=== PATIENT | female | born 1950 | race Caucasian/White ===

== ENCOUNTER 2022-02-22 09:37 | Observation (INO) | payer MEDICARE ==
[2022-02-22] MEDS ORDERED: diphenhydrAMINE 50 MG/ML 1 ML VIAL IVP STA (10:00)
[2022-02-22] MEDS ORDERED: KETOROLAC 15 MG/ML 1 ML VIAL IVP STA (10:00)
[2022-02-22] MEDS ORDERED: ONDANSETRON 4 MG/2 ML VIAL IVP STA (10:00)
--- NOTE | 2022-02-22 10:02 | ED ---
General Adult HPI - General Chief complaint: Headache Stated complaint: weakness, head pain Time Seen by Provider: 02/22/22 09:43 Source: EMS Mode of arrival: EMS Limitations: no limitations - History of Present Illness Initial comments: Dictation was produced using [employer] dictation software. please excuse any grammatical, word or spelling errors. Chief Complaint: 71-year-old female presents to the emergency room for headache History of Present Illness: Patient is 71-year-old female she presents emergency department for headache. States that the headache is bifrontal. Patient states that the headache is severe. Patient states she has history of headaches ever has not seen a headache specialist in the past. She states that this headache feels like her usual headaches that she's been suffering from intermittently for the last several years. Patient denies any numbness distally or paresthesias. No vision loss. Denies any changes of symptoms throughout the day. No exacerbation with mastication. No vision loss. The ROS documented in this emergency department record has been reviewed and confirmed by me. Those systems with pertinent positive or negative responses have been documented in the HPI. All other systems are other negative and/or noncontributory. PHYSICAL EXAM: General Impression: Alert and oriented x3, not in acute distress HEENT: Normocephalic atraumatic, extra-ocular movements intact, pupils equal and reactive to light bilaterally, mucous membranes moist. Cardiovascular: Heart regular rate and rhythm Chest: Able to complete full sentences, no retractions, no tachypnea Abdomen: abdomen soft, non-tender, non-distended, no organomegaly Musculoskeletal: Pulses present and equal in all extremities, no peripheral edema Motor: no focal deficits noted Neurological: CN II-XII grossly intact, no focal motor or sensory deficits noted Skin: Intact with no visualized rashes Psych: Normal affect and mood ED course: 71-year-old female presents emergency department for acute on chronic headache. Vital signs upon arrival are within acceptable limits. Neurologic exam is benign. Nursing notes and chart review was performed Laboratory evaluation obtained. CBC, coag panel, metabolic panel is unremarkable. For panel viral PCR is negative. Computed tomography scan of the brain is negative. Patient given headache cocktail and monitored in the emergency department for several hours. Reevaluate multiple occasions. Patient reports that she has very minimal relief from headache cocktail. The bedside believes that this has some U do with stopping her blood pressure medications abruptly. She has not seen a PCP in several months has just run out of her blood pressure medications. Patient believes that patient showing some signs of encephalopathy. She lives alert and oriented 4 showing no neurologic deficits. Family does confirm that patient has extensive headache history has headaches often. Was pt. sent in by a medical professional or institution? @No Did you speak to anyone other than the patient for history? @Daughters Did you review nursing and triage notes? @Yes, agreed Were old charts reviewed? @No Differential Diagnosis? @ MDM Differential Headache: Migraine, tension, cluster, carbon monoxide, central venous thrombosis, pension karma temporal arteritis, acute closure glaucoma, intercranial hemorrhage, mast oiditis, sinusitis, head injury this is not meant to be an all-inclusive list. EKG interpreted by me (3pts min.)? @ [none] X-rays interpreted by me (1pt min.)? @ [none] CT interpreted by me (1pt min.)? @Yes showing no acute processes U/S interpreted by me (1pt. min.)? @ [none] What testing was considered but not performed? (CT, X-rays, U/S, labs)? Why? @ [CT, X-rays, U/S, labs? Why?] What meds were considered but not given? Why? @ [none] Did you discuss the management of the patient with other professionals? @Hospitalist Did you reconcile home meds? @ [none] Was smoking cessation discussed for >3mins.? @ [none] Was critical care preformed (if so, how long)? @ [none] Were there social determinants of health that impacted care today? How? (Homelessness, low income, unemployed, alcoholism, drug addiction, transportation, low edu. Level, literacy, decrease access to med. care, care home, rehab)? @No established care with primary care physician Was there de-escalation of care discussed even if they declined? (Discuss DNR or withdrawal of care, Hospice)? @Not applicable What co-morbidities impacted this encounter? (DM, HTN, Smoking, COPD, CAD, Cancer, CVA, Hep., AIDS, mental health diagnosis, sleep apnea, morbid obesity)? @Not applicable Was patient admitted / discharged? @Admitted Undiagnosed new problem with uncertain prognosis? @Yes Drug Therapy requiring intensive monitoring for toxicity (Heparin, Nitro, Insulin, Cardizem)? @ [none] Were any procedures done? @ [none] Diagnosis/symptom? @Status migrainosus Acute, or Chronic, or Acute on Chronic? @Due to chronic headache Uncomplicated (without systemic symptoms) or Complicated (systemic symptoms)? @Uncomplicated Side effects of treatment? @ [none] Exacerbation, Progression, or Severe Exacerbation] @ [no] Poses a threat to life or bodily function? @ [no] - Related Data Home Medications Medication Instructions Recorded Confirmed Aspirin EC [Ecotrin Low Dose] 81 mg PO DAILY 02/22/22 02/22/22 Atorvastatin [Lipitor] 80 mg PO DAILY 02/22/22 02/22/22 Ergocalciferol [Vitamin D2 (1250 1,250 mcg PO Q30D 02/22/22 02/22/22 Mcg = 47894 Iu)] Glimepiride [Amaryl] 4 mg PO BID 02/22/22 02/22/22 Losartan [Cozaar] 25 mg PO DAILY 02/22/22 02/22/22 Omeprazole 20 mg PO DAILY PRN 02/22/22 02/22/22 atenoloL 100 mg PO DAILY 02/22/22 02/22/22 metFORMIN HCL 1,000 mg PO BID 02/22/22 02/22/22 Allergies Allergy/AdvReac Type Severity Reaction Status Date / Time Wuybhhf-GZC-NrH Reductase Allergy Unknown Verified 02/22/22 11:42 Inhibitor Review of Systems ROS Statement: Those systems with pertinent positive or pertinent negative responses have been documented in the HPI. ROS Other: All systems not noted in ROS Statement are negative. Past Medical History Past Medical History: Cancer, Diabetes Mellitus History of Any Multi-Drug Resistant Organisms: None Reported Past Surgical History: Appendectomy, Cholecystectomy, Hysterectomy Past Psychological History: No Psychological Hx Reported Smoking Status: Current every day smoker Past Alcohol Use History: None Reported Past Drug Use History: None Reported General Exam Limitations: no limitations Course Vital Signs 02/22/22 02/22/22 02/22/22 09:39 11:00 11:30 Temperature 97.6 F Pulse Rate 109 H 92 105 H Respiratory 18 13 18 Rate Blood Pressure 153/132 188/119 192/90 O2 Sat by Pulse 98 95 96 Oximetry 02/22/22 02/22/22 02/22/22 12:00 12:30 13:00 Temperature Pulse Rate 90 82 97 Respiratory 20 18 20 Rate Blood Pressure 178/90 185/95 188/91 O2 Sat by Pulse 95 97 96 Oximetry Medical Decision Making - Lab Data Result diagrams: 02/22/22 11:34 02/22/22 10:40 Lab Results 02/22/22 02/22/22 02/22/22 Range/Units 10:40 10:40 11:34 WBC 9.0 (3.8-10.6) k/uL RBC 4.51 (3.80-5.40) m/uL Hgb 14.1 (11.4-16.0) gm/dL Hct 42.2 (34.0-46.0) % MCV 93.7 (80.0-100.0) fL MCH 31.3 (25.0-35.0) pg MCHC 33.4 (31.0-37.0) g/dL RDW 12.7 (11.5-15.5) % Plt Count 249 (150-450) k/uL MPV 8.8 Neutrophils % 84 % Lymphocytes % 9 % Monocytes % 4 % Eosinophils % 1 % Basophils % 1 % Neutrophils # 7.5 (1.3-7.7) k/uL Lymphocytes # 0.8 L (1.0-4.8) k/uL Monocytes # 0.4 (0-1.0) k/uL Eosinophils # 0.1 (0-0.7) k/uL Basophils # 0.0 (0-0.2) k/uL ESR 11 (0-20) mm/hr PT (9.0-12.0) sec INR (<1.2) APTT (22.0-30.0) sec Sodium 137 (137-145) mmol/L Potassium 4.4 (3.5-5.1) mmol/L Chloride 101 (98-107) mmol/L Carbon Dioxide 24 (22-30) mmol/L Anion Gap 12 mmol/L BUN 21 H (7-17) mg/dL Creatinine 1.09 H (0.52-1.04) mg/dL Est GFR (CKD-EPI)AfAm 59 (>60 ml/min/1.73 sqM) Est GFR (CKD-EPI)NonAf 51 (>60 ml/min/1.73 sqM) Glucose 202 H (74-99) mg/dL Calcium 8.8 (8.4-10.2) mg/dL Total Bilirubin 0.8 (0.2-1.3) mg/dL AST 35 (14-36) U/L ALT 35 H (4-34) U/L Alkaline Phosphatase 71 (38-126) U/L C-Reactive Protein 0.6 (<1.0) mg/dL Total Protein 7.0 (6.3-8.2) g/dL Albumin 4.2 (3.5-5.0) g/dL Influenza Type A (PCR) Not Detected (Not Detectd) Influenza Type B (PCR) Not Detected (Not Detectd) RSV (PCR) Not Detected (Not Detectd) SARS-CoV-2 (PCR) Not Detected (Not Detectd) 02/22/22 Range/Units 11:34 WBC (3.8-10.6) k/uL RBC (3.80-5.40) m/uL Hgb (11.4-16.0) gm/dL Hct (34.0-46.0) % MCV (80.0-100.0) fL MCH (25.0-35.0) pg MCHC (31.0-37.0) g/dL RDW (11.5-15.5) % Plt Count (150-450) k/uL MPV Neutrophils % % Lymphocytes % % Monocytes % % Eosinophils % % Basophils % % Neutrophils # (1.3-7.7) k/uL Lymphocytes # (1.0-4.8) k/uL Monocytes # (0-1.0) k/uL Eosinophils # (0-0.7) k/uL Basophils # (0-0.2) k/uL ESR (0-20) mm/hr PT 10.5 (9.0-12.0) sec INR 1.0 (<1.2) APTT 20.9 L (22.0-30.0) sec Sodium (137-145) mmol/L Potassium (3.5-5.1) mmol/L Chloride (98-107) mmol/L Carbon Dioxide (22-30) mmol/L Anion Gap mmol/L BUN (7-17) mg/dL Creatinine (0.52-1.04) mg/dL Est GFR (CKD-EPI)AfAm (>60 ml/min/1.73 sqM) Est GFR (CKD-EPI)NonAf (>60 ml/min/1.73 sqM) Glucose (74-99) mg/dL Calcium (8.4-10.2) mg/dL Total Bilirubin (0.2-1.3) mg/dL AST (14-36) U/L ALT (4-34) U/L Alkaline Phosphatase (38-126) U/L C-Reactive Protein (<1.0) mg/dL Total Protein (6.3-8.2) g/dL Albumin (3.5-5.0) g/dL Influenza Type A (PCR) (Not Detectd) Influenza Type B (PCR) (Not Detectd) RSV (PCR) (Not Detectd) SARS-CoV-2 (PCR) (Not Detectd) Disposition Clinical Impression: Status migrainosus Disposition: ADMITTED IP TO THIS HOSP Condition: Fair Referrals: Ze Connelly MD [STAFF PHYSICIAN] - 1-2 days Decision Time: 14:39
[2022-02-22 11:07] LABS: Albumin 4.2 g/dL (3.5-5.0); C Reactive Protein 0.6 mg/dL (<1.0); Calcium 8.8 mg/dL (8.4-10.2); Total Bilirubin 0.8 mg/dL (0.2-1.3)
[2022-02-22 11:11] LABS: Potassium 4.4 mmol/L (3.5-5.1)
--- NOTE | 2022-02-22 11:18 | CT ---
EXAMINATION TYPE: CT brain wo con DATE OF EXAM: 02/22/2022 HISTORY: Weakness and headache. CT DLP: 1099.4 mGycm. Automated Exposure Control for Dose Reduction was Utilized. TECHNIQUE: CT scan of the head is performed without contrast. COMPARISON: None. FINDINGS: There is no acute intracranial hemorrhage or midline shift identified. Mild ventricular a nd sulcal prominence. Mesa-white matter differentiation is maintained. Hyperostosis frontalis. The g lobes are intact and the visualized sinuses are clear. IMPRESSION: No acute intracranial hemorrhage or midline shift. There is mild diffuse age-related ce rebral atrophy noted.
[2022-02-22 11:45] LABS: Basophils % (A) 1 %; Eosinophils # (A) 0.1 k/uL (0-0.7); Eosinophils % (A) 1 %; HCT 42.2 % (34.0-46.0); HGB 14.1 gm/dL (11.4-16.0); Lymphocytes # (A) 0.8 k/uL (1.0-4.8); Lymphocytes % (A) 9 %; MCH 31.3 pg (25.0-35.0); MCHC 33.4 g/dL (31.0-37.0); MCV 93.7 fL (80.0-100.0); Mean Platelet Volume 8.8; Monocytes # (A) 0.4 k/uL (0-1.0); Monocytes % (A) 4 %; Neutrophils # (A) 7.5 k/uL (1.3-7.7); Neutrophils % (A) 84 %; Platelet Count 249 k/uL (150-450); RBC 4.51 m/uL (3.80-5.40); RDW 12.7 % (11.5-15.5)
[2022-02-22 12:11] LABS: Prothrombin Time 10.5 sec (9.0-12.0)
[2022-02-22 12:15] LABS: Partial Thromboplastin Time 20.9 sec (22.0-30.0)
[2022-02-22 13:27] LABS: Erythrocyte Sedimentation Rate 11 mm/hr (0-20)
[2022-02-22] MEDS ORDERED: DEXAMETHASONE SOD PHOSPHATE 10 MG/ML 1 ML VIAL IV STA (13:44)
[2022-02-22] MEDS: MAGNESIUM SULFATE-D5W PMX 1 GM in DEXTROSE/WATER 1 100ML.BAG IVPB SCH ×2 (14:09→16:03)
[2022-02-22] MEDS ORDERED: NALOXONE 0.4 MG/ML 1 ML VIAL IV PRN ×2 (14:33→16:00)
[2022-02-22] MEDS ORDERED: traMADol 50 MG TAB PO PRN (16:00)
[2022-02-22] MEDS ORDERED: ACETAMINOPHEN TAB 325 MG TAB PO PRN (16:00)
[2022-02-22] MEDS ORDERED: PANTOPRAZOLE 40 MG TABLET PO PRN (16:02)
[2022-02-22] MEDS: SODIUM CHLORIDE 0.9% 1,000 ML IV SCH (16:03)
--- NOTE | 2022-02-22 16:13 | P.HPIM ---
History of Present Illness H&P Date: 02/22/22 Chief Complaint: headaches 71-year-old female presents to the emergency room for headache. It is bifrontal. Interestingly it has been going on for years but patient did not seek medical help for it. She did not tell her primary care physician about it. He states there is a throbbing and constant. He states that at a minimum she has it 3- 4 days a week. He states it is rarely associated with nausea/vomiting, visual changes. She does have photophobia. Patient denies any focal weakness or numbness. Evaluation in the emergency department revealed elevated blood pressure at 180/90. Laboratory assessment was within normal limits except for elevated glucose at 202. A computed tomography scan of the head was negative for any acute intracranial process but it showed hyperostosis in the bilateral frontal areas.. Review of Systems Complete review of system performed, pertinent positives per HPI, otherwise negative Past Medical History Past Medical History: Cancer, Diabetes Mellitus History of Any Multi-Drug Resistant Organisms: None Reported Past Surgical History: Appendectomy, Cholecystectomy, Hysterectomy Past Psychological History: No Psychological Hx Reported Smoking Status: Current every day smoker Past Alcohol Use History: None Reported Past Drug Use History: None Reported Medications and Allergies Home Medications Medication Instructions Recorded Confirmed Type Aspirin EC [Ecotrin Low Dose] 81 mg PO DAILY 02/22/22 02/22/22 History Atorvastatin [Lipitor] 80 mg PO DAILY 02/22/22 02/22/22 History Ergocalciferol [Vitamin D2 (1250 1,250 mcg PO Q30D 02/22/22 02/22/22 History Mcg = 80915 Iu)] Glimepiride [Amaryl] 4 mg PO BID 02/22/22 02/22/22 History Losartan [Cozaar] 25 mg PO DAILY 02/22/22 02/22/22 History Omeprazole 20 mg PO DAILY PRN 02/22/22 02/22/22 History atenoloL 100 mg PO DAILY 02/22/22 02/22/22 History metFORMIN HCL 1,000 mg PO BID 02/22/22 02/22/22 History Allergies Allergy/AdvReac Type Severity Reaction Status Date / Time Znojorw-GOI-EoR Reductase Allergy Unknown Verified 02/22/22 11:42 Inhibitor Physical Exam Vitals: Vital Signs Temp Pulse Resp BP Pulse Ox 02/22/22 13:00 97 20 188/91 96 02/22/22 12:30 82 18 185/95 97 02/22/22 12:00 90 20 178/90 95 02/22/22 11:30 105 H 18 192/90 96 02/22/22 11:00 92 13 188/119 95 02/22/22 09:39 97.6 F 109 H 18 153/132 98 Intake and Output 02/22/22 02/22/22 02/22/22 06:59 14:59 22:59 Other: Weight 105.233 kg Constitutional: No acute distress, conversant, pleasant Eyes:Anicteric sclerae, moist conjunctiva, no lid-lag, PERRLA, ENMT: Oropharynx clear, no erythema, exudates Neck: Supple, FROM, no masses, or JVD, No carotid bruits, No thyromegaly Lungs: Clear to auscultation, Clear to percussion, Normal respiratory effort, no accessory muscle use Cardiovascular: Heart regular in rate and rhythm, No murmurs, gallops, or rubs, No peripheral edema Abdominal: Soft, Nontender, no guarding, rebound or rigidity, Normoactive bowel sounds, No hepatomegaly, No splenomegaly, No palpable mass Skin: Normal temperature, tone, texture, turgor, no induration, No subcutaneous nodules, No rash, lesions, No ulcers Extremities: No digital cyanosis, No clubbing, Pedal pulses intact and symmetrical, Radial pulses intact and symmetrical, No calf tenderness Psychiatric: Alert and oriented to person, place and time, appropriate affect, intact judgement Neuro: Muscles Strength 5/5 in all 4 extremities, Sensation to light touch grossly present throughout, Cranial nerves II-XII grossly intact, no focal sensory deficits Results CBC & Chem 7: 02/22/22 11:34 02/22/22 10:40 Labs: Abnormal Lab Results - Last 24 Hours (Table) 02/22/22 02/22/22 02/22/22 Range/Units 10:40 11:34 11:34 Lymphocytes # 0.8 L (1.0-4.8) k/uL APTT 20.9 L (22.0-30.0) sec BUN 21 H (7-17) mg/dL Creatinine 1.09 H (0.52-1.04) mg/dL Glucose 202 H (74-99) mg/dL ALT 35 H (4-34) U/L Assessment and Plan Plan: Headaches Could be secondary to migraine versus hyperostosis Patient was seen by neurology, will need hematology/oncology consult, discussed with both services Started on Topamax and Fioricet when necessary Will obtain MRI/MRA brain Diabetes type 2 Hold oral hypoglycemics Sliding scale insulin Hypertensive urgency Resume home blood pressure medications for now. Hyperlipidemia Resume statin Admit to observation
[2022-02-22] MEDS ORDERED: ONDANSETRON 4 MG/2 ML VIAL IVP PRN (16:26)
--- NOTE | 2022-02-22 16:28 | P.CNNES ---
History of Present Illness Consult date: 02/22/22 Requesting physician: Dmitriy Del Rio Reason for Consult: status migranosus History of Present Illness: This is a 71-year-old woman with history of hypertension, diabetes who presented to the emergency department because of headache. Patient stated that she has this headache for years and it's over the bilateral frontal region and it fluctuates in intensity. She denies any worsening of the headache and she stated that she never had this headache addressed in the past but decided to address at that today. She stated the headache is over the bilateral frontal region without any radiation and it's throbbing pain. Again she stated that the headache intensity fluctuates and currently 10 over 10. She does have nausea but denies vomiting. Denies any visual disturbance, focal weakness. Denies any recent trauma to the head or falls. She has tried Excedrin Migraine without any resolution. Some of the workup during his hospital visit consisted of: Initial vitals blood pressure of 153/132, heart rate of 109, respiratory of 18, temperature of 97.6 Fahrenheit oral, pulse ox of 98% room air. White blood cell is 9.0 ESR is 11 and the CRP is 0.6 which within normal limits. Serum glucose 202, creatinine is 1.09. Lee virus PCR, RSV, influenza A/B PCR is nondetected CT head is reported as no acute intracranial hemorrhage or midline shift. There is midline diffuse age-related cerebral atrophy noted. In the body of the report as reported as hyperostosis frontalis. I personally reviewed the CT and there is no acute or subacute ischemia, any intraparenchymal hemorrhage. There is no intracranial mass. The patient's bilateral frontal bones are significantly enlarged. Review of Systems Review of system: The 12 point system was reviewed and apparent positive and negative per HPI. Past Medical History Past Medical History: Cancer, Diabetes Mellitus History of Any Multi-Drug Resistant Organisms: None Reported Past Surgical History: Appendectomy, Cholecystectomy, Hysterectomy Past Psychological History: No Psychological Hx Reported Smoking Status: Current every day smoker Past Alcohol Use History: None Reported Past Drug Use History: None Reported Medications and Allergies Home Medications Medication Instructions Recorded Confirmed Type Aspirin EC [Ecotrin Low Dose] 81 mg PO DAILY 02/22/22 02/22/22 History Atorvastatin [Lipitor] 80 mg PO DAILY 02/22/22 02/22/22 History Ergocalciferol [Vitamin D2 (1250 1,250 mcg PO Q30D 02/22/22 02/22/22 History Mcg = 96151 Iu)] Glimepiride [Amaryl] 4 mg PO BID 02/22/22 02/22/22 History Losartan [Cozaar] 25 mg PO DAILY 02/22/22 02/22/22 History Omeprazole 20 mg PO DAILY PRN 02/22/22 02/22/22 History atenoloL 100 mg PO DAILY 02/22/22 02/22/22 History metFORMIN HCL 1,000 mg PO BID 02/22/22 02/22/22 History Allergies Allergy/AdvReac Type Severity Reaction Status Date / Time Zokjhzl-RWW-KeI Reductase Allergy Unknown Verified 02/22/22 11:42 Inhibitor Physical Examination - Vital Signs Vital Signs: Vital Signs Temp Pulse Resp BP Pulse Ox 02/22/22 13:00 97 20 188/91 96 02/22/22 12:30 82 18 185/95 97 02/22/22 12:00 90 20 178/90 95 02/22/22 11:30 105 H 18 192/90 96 02/22/22 11:00 92 13 188/119 95 02/22/22 09:39 97.6 F 109 H 18 153/132 98 Intake and Output 02/22/22 02/22/22 02/22/22 06:59 14:59 22:59 Other: Weight 105.233 kg GENERAL: The patient is lying in bed and is in moderate acute distress. CHEST: The heart rate is regular rate rhythm. No murmurs to auscultation. LUNG: Clear to auscultation bilaterally no wheezing noted throughout. Not labored breathing. ABDOMEN/GI: Bowel sounds present in all 4 quadrants. No tenderness to palpation throughout. NEUROLOGICAL: Higher mental function: The patient is awake, alert, oriented to self, place and time. Patient is following commands. No aphasia and no neglect. Cranial nerves: The pupils are round, equal and reactive to light and accommodation. Visual springer are full to confrontation throughout. Extraocular movement is intact no nystagmus is noted. Facial sensation is normal to touch throughout. The facial strength is normal throughout. Hearing is mildly decreased bilaterally to hand rub. Tongue is midline and moved [id number] without any difficulty. No dysarthria is noted. Shoulder shrug is normal bilaterally. Motor: The strength is 5 over 5 throughout. Normal tone and bulk. Cerebellum: Normal finger to nose bilaterally. Sensation: Sensation is normal to touch throughout. Reflexes (right/left): Difficult to assess because of patient body habitus. Plantars are mute bilaterally. Results - Laboratory Findings CBC and BMP: 02/22/22 11:34 02/22/22 10:40 Abnormal Lab Findings: Abnormal Labs 02/22/22 02/22/22 02/22/22 10:40 11:34 11:34 Lymphocytes # 0.8 L APTT 20.9 L BUN 21 H Creatinine 1.09 H Glucose 202 H ALT 35 H Assessment and Plan Assessment: Acute on chronic bilateral frontal cephalgia: On CT of the head patient has significant hyperostosis frontalis: Rule out benign bone tumor mass vs malignant. Hypertension Diabetes mellitus Plan: I ordered MRI Brain w/ and w/o STAT to rule out any intracranial mass. Started the patient on Topamax 50mg 1 tab bid and Fioricet PRN. started on Zofran 4mg every 6 hours. Patient received Migraine cocktail in the ED (steroid, benadryl and zofran). Oncology is consulted for abnormal bone grow. Will defer the rest of medical management to primary team. The plan is discussed with patient and Primary team. Thank you for the consultation. Time with Patient: Greater than 30
[2022-02-22 17:59] LABS: Glucose,Whole Blood 212 mg/dL (70-110)
[2022-02-22] MEDS: INSULIN ASPART (NovoLOG) 100 UNIT/ML VIAL SQ SCH ×2 (18:06→21:17)
[2022-02-22] MEDS ORDERED: hydrALAZINE HCL 25 MG TAB PO PRN (18:34)
--- NOTE | 2022-02-22 18:36 | MR ---
EXAMINATION TYPE: MR brain wo/w con DATE OF EXAM: 02/22/2022 5:54 PM CLINICAL INDICATION:Female, 71 years old with history of frontal headache with abnormal bone over fro ntal.; COMPARISON: CT brain on 8 2 TECHNIQUE: Multi planar, multi sequence imaging was performed through the brain including: T1, T2, In version recovery, susceptibility weighted imaging and gradient echo imaging and Diffusion weighted im aging. The patient was then given intravenous contrast and multi planar, T1 fat-saturation images wer e obtained. IV Contrast: 10 cc Gadavist FINDINGS: Redemonstration of hyperostosis frontalis which is a benign etiology. The grider-white junctions, ventricular system, basal cisterns appear unremarkable. Diffusion-weighted imaging shows no evidence of restricted diffusion to suggest acute/subacute infarct. Intracranial art erial flow voids are maintained. Midline structures show no abnormality. Scattered foci of high T2 si gnal intensity are seen within the periventricular white matter. The susceptibility weighted images d o not reveal any evidence for micro-hemorrhage. After administration of gadolinium, no abnormal enhan cement is seen. The bone marrow signal is within normal limits. Paranasal sinuses and mastoid air cells: Mild scattered paranasal sinus disease. Visualized orbits: Orbital contents are intact. IMPRESSION: 1. No evidence of intracranial mass, acute/subacute infarct, or abnormal enhancement. 2. Benign hyperostosis frontalis. 3. Nonspecific white matter changes, likely related to small vessel ischemic disease
[2022-02-22] MEDS: BUTALB/APAP/CAFF 50-325-40MG TAB PO PRN (18:41)
[2022-02-22] MEDS ORDERED: atenoloL 50 MG TAB PO ONE (19:00)
[2022-02-22] MEDS ORDERED: LOSARTAN 25 MG TAB PO ONE (19:00)
[2022-02-22] MEDS: TOPIRAMATE 25 MG TAB PO SCH (20:11)
[2022-02-22 20:55] LABS: Glucose,Whole Blood 177 mg/dL (70-110)
[2022-02-23] MEDS: BUTALB/APAP/CAFF 50-325-40MG TAB PO PRN ×2 (01:11→06:53)
[2022-02-23 06:22] LABS: Basophils % (A) 0 %; Eosinophils % (A) 0 %; HCT 41.1 % (34.0-46.0); HGB 13.5 gm/dL (11.4-16.0); Lymphocytes # (A) 0.9 k/uL (1.0-4.8); Lymphocytes % (A) 16 %; MCH 31.8 pg (25.0-35.0); MCHC 32.8 g/dL (31.0-37.0); MCV 96.8 fL (80.0-100.0); Mean Platelet Volume 8.6; Monocytes # (A) 0.4 k/uL (0-1.0); Monocytes % (A) 6 %; Neutrophils # (A) 4.4 k/uL (1.3-7.7); Neutrophils % (A) 77 %; Platelet Count 209 k/uL (150-450); RBC 4.25 m/uL (3.80-5.40); RDW 12.2 % (11.5-15.5); WBC 5.7 k/uL (3.8-10.6)
[2022-02-23 06:42] LABS: Glucose,Whole Blood 159 mg/dL (70-110)
[2022-02-23 06:46] LABS: ALT 40 U/L (4-34); African American GFR (CKD) 55 (>60 ml/min/1.73 sqM); Albumin/Globulin Ratio 1.4; Anion Gap 10 mmol/L; Blood Urea Nitrogen 22 mg/dL (7-17); Calcium 8.5 mg/dL (8.4-10.2); Carbon Dioxide 21 mmol/L (22-30); Chloride 105 mmol/L (98-107); Globulin 2.7 g/dL; Glucose 177 mg/dL (74-99); Non-African American GFR(CKD) 48 (>60 ml/min/1.73 sqM); Sodium 136 mmol/L (137-145)
[2022-02-23 06:51] LABS: AST 50 U/L (14-36); Albumin 3.8 g/dL (3.5-5.0); Alkaline Phosphatase 61 U/L (38-126); Magnesium 1.6 mg/dL (1.6-2.3); Potassium 5.1 mmol/L (3.5-5.1); Total Protein 6.5 g/dL (6.3-8.2)
[2022-02-23] MEDS: INSULIN ASPART (NovoLOG) 100 UNIT/ML VIAL SQ SCH ×4 (06:53→21:39)
[2022-02-23] MEDS: ASPIRIN 81 MG PO SCH (09:13)
[2022-02-23] MEDS: ATORVASTATIN 80 MG TAB PO SCH (09:13)
[2022-02-23] MEDS: atenoloL 50 MG TAB PO SCH (09:13)
[2022-02-23] MEDS: TOPIRAMATE 25 MG TAB PO SCH (09:14)
[2022-02-23] MEDS: LOSARTAN 25 MG TAB PO SCH (09:14)
[2022-02-23 10:28] LABS: Glucose,Whole Blood 181 mg/dL (70-110)
--- NOTE | 2022-02-23 11:23 | P.PN ---
Subjective Progress Note Date: 02/23/22 Per nurse, while the Oncology team earlier in the morning she has speech difficulty and unknown last normal. The patient is seen at bedside and feels headache is improving over the bilateral frontal region. Denies visual disturbance, focal weakness. She did have speech difficulty but could not tell me if this is new or not. She was placed on Topamax recently. I spoke with the daughter (Mane) via phone and she stated patient has history of word finding difficulty and would repeat phrases or searches for words and feels it is chronic but unsure for how long. Objective - Vital Signs Vital signs: Vital Signs Temp 97.6 F 02/23/22 07:00 Pulse 67 02/23/22 10:36 Resp 20 02/23/22 07:00 BP 117/70 02/23/22 10:36 Pulse Ox 95 02/23/22 07:00 FiO2 Intake & Output 02/22/22 02/23/22 02/23/22 18:59 06:59 18:59 Weight 105.233 kg Other: Voiding Method Toilet # Voids 2 - Exam GENERAL: The patient is lying in bed and is not in acute distress. NEUROLOGICAL: Higher mental function: The patient is awake, alert, oriented to self, time. She had expressive aphasia and was repeat 2022 (even when showing her pen or asking her where she was). Upon asking name of watch she stated time and for pen she state tin. Is following simple and complex command. No neglect. Cranial nerves: The pupils are round, equal and reactive to light. Visual springer are full to confrontation throughout. Extraocular movement is intact no nystagmus is noted. Facial sensation is normal to touch throughout. The facial strength is normal throughout. Hearing is mildly decreased bilaterally to hand rub. Tongue is midline and moved [id number] without any difficulty. No dysarthria is noted. Shoulder shrug is normal bilaterally. Motor: The strength is 5 over 5 throughout. Normal tone and bulk. Cerebellum: Normal finger to nose bilaterally. Sensation: Sensation is normal to touch throughout. Reflexes (right/left): Difficult to assess because of patient body habitus. Plantars are mute bilaterally. NIH Stroke Scale is 1 for expressive aphasia. Unknown last normal. As well it seem she has underlying word finding difficulty but unsure if worse than baseline which I feel seems different than yesterday. No IV tpa since unknown last normal and low NIH stroke scale and the risk outweigh the benefit. Some of the workup during his hospital visit consisted of: White blood cell is 9.0 ESR is 11 and the CRP is 0.6 which within normal limits. Serum glucose 202, creatinine is 1.09. Lee virus PCR, RSV, influenza A/B PCR is nondetected CT head is reported as no acute intracranial hemorrhage or midline shift. There is midline diffuse age-related cerebral atrophy noted. In the body of the report as reported as hyperostosis frontalis. I personally reviewed the CT and there is no acute or subacute ischemia, any intraparenchymal hemorrhage. There is no intracranial mass. The patient's bilateral frontal bones are significa ntly enlarged. MRI Brain is reported as No evidence of intracranial mass, acute/subacute infarct or abnormal enhancement. Benign hyperostosis frontalis. Nonspecific white matter changes, likely related to small vessel ischemic disease. I personally reviewed MRI and agree with report. - Labs CBC & Chem 7: 02/23/22 05:30 02/23/22 05:30 Labs: Abnormal Lab Results - Last 24 Hours (Table) 02/22/22 02/22/22 02/22/22 Range/Units 10:40 11:34 11:34 Lymphocytes # 0.8 L (1.0-4.8) k/uL APTT 20.9 L (22.0-30.0) sec Sodium (137-145) mmol/L Carbon Dioxide (22-30) mmol/L BUN 21 H (7-17) mg/dL Creatinine 1.09 H (0.52-1.04) mg/dL Glucose 202 H (74-99) mg/dL POC Glucose (mg/dL) (70-110) mg/dL AST (14-36) U/L ALT 35 H (4-34) U/L 02/22/22 02/22/22 02/23/22 Range/Units 17:57 20:53 05:30 Lymphocytes # 0.9 L (1.0-4.8) k/uL APTT (22.0-30.0) sec Sodium (137-145) mmol/L Carbon Dioxide (22-30) mmol/L BUN (7-17) mg/dL Creatinine (0.52-1.04) mg/dL Glucose (74-99) mg/dL POC Glucose (mg/dL) 212 H 177 H (70-110) mg/dL AST (14-36) U/L ALT (4-34) U/L 02/23/22 02/23/22 02/23/22 Range/Units 05:30 06:40 10:27 Lymphocytes # (1.0-4.8) k/uL APTT (22.0-30.0) sec Sodium 136 L (137-145) mmol/L Carbon Dioxide 21 L (22-30) mmol/L BUN 22 H (7-17) mg/dL Creatinine 1.14 H (0.52-1.04) mg/dL Glucose 177 H (74-99) mg/dL POC Glucose (mg/dL) 159 H 181 H (70-110) mg/dL AST 50 H (14-36) U/L ALT 40 H (4-34) U/L Assessment and Plan Assessment: 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 MRI Brain w/ and w/o was suggestive of benign hyperostosis frontalis and no mass or stroke. Expressive Aphasia: Likely medication induced Topamax (which can cause word finding difficulty). Also she had underlying word finding difficulty per daughter but possibly worse than baseline. Hypertension Diabetes mellitus Plan: I ordered CTA head and neck to rule out any significant stenosis/occlusion that could be cause of her aphasia beside Topamax. She is on ASA 81mg daily and Lipitor 80mg daily her home medication which is sufficient for secondary stroke prophylaxis. I stopped Topamax and started her on Elavil 25mg qhs for headache control which can be increased to 50mg qhs if continues to have uncontrolled headache. Fioricet PRN. started on Zofran 4mg every 6 hours. Patient received Migraine cocktail in the ED (steroid, benadryl and zofran). Oncology is consulted. Will defer the rest of medical management to primary team. The plan is discussed with patient and her nurse. I called her daughter (Mane) via phone and updated her. Will observe the patient for an additional day and if work-up is normal and patient is back to baseline then she is clear for discharge. Time with Patient: Less than 30
[2022-02-23 12:04] LABS: Glucose,Whole Blood 123 mg/dL (70-110)
--- NOTE | 2022-02-23 12:46 | CT ---
EXAMINATION TYPE: CT angio head neck DATE OF EXAM: 02/23/2022 HISTORY: visual changes COMPARISON: MRI 03-15, CT scan 03-15 CT DLP: 334.5 mGycm. Automated Exposure Control for Dose Reduction was Utilized. TECHNIQUE: CTA scan of the head and neck is performed with IV Contrast, patient injected with 65cc m L of Isovue 370, axial images are obtained, coronal and sagittal reformatted images are reviewed. 3D reconstructed images are created on an independent workstation and reviewed. FINDINGS: There is standard three-vessel anatomy of the great vessels. Atherosclerotic change of the aorta. Slight right vertebral artery dominance. Mild atherosclerotic plaque in the carotid bifurcatio n bilaterally with no significant stenosis. Visualized common carotid arteries intact. Intracranially the vertebrobasilar carotid systems are patent. Anterior cerebral arteries are patent bilaterally. Middle cerebral arteries appear to be patent bilaterally. The posterior cerebral arterie s appear to be patent bilaterally. Hyperostosis of the calvarium is noted. Atrophic and degenerative change of the spine. IMPRESSION: 1. No significant carotid bifurcation stenosis. 2. No sizable intracranial aneurysm or vascular malformation. NASCET criteria was used in interpretation of this exam?
--- NOTE | 2022-02-23 13:40 | P.PN ---
Subjective Progress Note Date: 02/23/22 Patient seen and examined at bedside. Patient states that her headaches have improved since admission. Initially they were a 10 out of 10 pain and now the headache is diabetic 10 pain. Pain is described as a pressure in the frontal region. Patient denies chest pain or shortness of breath. Objective - Vital Signs Vital signs: Vital Signs Temp 97.6 F 02/23/22 07:00 Pulse 67 02/23/22 10:36 Resp 20 02/23/22 07:00 BP 117/70 02/23/22 10:36 Pulse Ox 95 02/23/22 07:00 FiO2 Intake & Output 02/22/22 02/23/22 02/23/22 18:59 06:59 18:59 Weight 105.233 kg Other: Voiding Method Toilet # Voids 2 - Exam General: [non toxic], [no distress], [appears at stated age] Derm: [warm], [dry] Head: [atraumatic], [normocephalic], [symmetric] Eyes: [EOMI], [no lid lag], [anicteric sclera] Mouth: [no lip lesion], [mucus membranes moist] Cardiovascular: [S1S2 reg], [no murmur], [positive posterior tibial pulse bilateral], Lungs: [CTA bilateral], [no rhonchi, no rales] , [no accessory muscle use] Abdominal: [soft], [ nontender to palpation], [no guarding], [no appreciable organomegaly] Ext: [no gross muscle atrophy], [no edema], [no contractures] Neuro: [ CN II-XI grossly intact], [no focal neuro deficits] Psych: [Alert], [oriented], [appropriate affect] - Labs CBC & Chem 7: 02/23/22 05:30 02/23/22 05:30 Labs: Abnormal Lab Results - Last 24 Hours (Table) 02/22/22 02/22/22 02/23/22 Range/Units 17:57 20:53 05:30 Lymphocytes # 0.9 L (1.0-4.8) k/uL Sodium (137-145) mmol/L Carbon Dioxide (22-30) mmol/L BUN (7-17) mg/dL Creatinine (0.52-1.04) mg/dL Glucose (74-99) mg/dL POC Glucose (mg/dL) 212 H 177 H (70-110) mg/dL AST (14-36) U/L ALT (4-34) U/L 02/23/22 02/23/22 02/23/22 Range/Units 05:30 06:40 10:27 Lymphocytes # (1.0-4.8) k/uL Sodium 136 L (137-145) mmol/L Carbon Dioxide 21 L (22-30) mmol/L BUN 22 H (7-17) mg/dL Creatinine 1.14 H (0.52-1.04) mg/dL Glucose 177 H (74-99) mg/dL POC Glucose (mg/dL) 159 H 181 H (70-110) mg/dL AST 50 H (14-36) U/L ALT 40 H (4-34) U/L 02/23/22 Range/Units 12:02 Lymphocytes # (1.0-4.8) k/uL Sodium (137-145) mmol/L Carbon Dioxide (22-30) mmol/L BUN (7-17) mg/dL Creatinine (0.52-1.04) mg/dL Glucose (74-99) mg/dL POC Glucose (mg/dL) 123 H (70-110) mg/dL AST (14-36) U/L ALT (4-34) U/L Assessment and Plan Assessment: Headaches Secondary to migraine versus hyperostosis Patient seen by neurology medications have been adjusted and patient is currently on Elavil and Fiorocet for her headaches MRI negative for intracranial mass acute/subacute infarct or abnormal e nhancement CTA reveals no significant carotid bifurcation stenosis no sizable intracranial aneurysm or vascular malformation Hyperostosis Frontalis Identified by MRI hematology/oncology consulted Diabetes type 2 Hold oral hypoglycemics Sliding scale insulin Hypertensive urgency resolved continue home blood pressure medications Hyperlipidemia Resume statin GI/DVT prophylaxis Disposition: Discharge planning once cleared by neurology headaches are better controlled Likely in a.m. Time with Patient: Greater than 30
--- NOTE | 2022-02-23 15:14 | P.CONS ---
History of Present Illness - Reason for Consult Consult date: 02/23/22 abnormal bone growth Requesting physician: Dmitriy Del Rio - Chief Complaint Migraine - History of Present Illness This is a 71-year-old woman with history of HTN and diabetes who presented to the ER because of headache. Patient reports hx of migraines for the last 7 yea rs. Pt states currently headache is in bilateral frontal region, it can fluctuate in intensity. She denies any worsening of the headache, radiation of pain, and describes headache as throbbing. associated nausea, denies vomiting. Denies visual disturbance, focal weakness. Denies any recent trauma to the head, she has fallen. No focal pain in back, legs or arms. Denies hx of cancer. Of note, during exam patient was experiencing expressive aphasia, at which time nurse was brought into room, and she reports about 1 hr prior to us seeing patient, pt was not having difficult with speech at that time. Nurse reports no narcotics have been given, but pt was started on topamax for her headache. She recieved 3 units of insulin this morning, did eat a full breakfast. BG was 181. Nurse was asked to page Neurologist stat to further assess patient. BP has also been elevated throughout admission, with systolic BP measuring in the 150- 180s, most recent BP is 117/70. CT head showed no intrancranial hemorahhage or midline shift, but showed hypertosis frontalis. MRI brain, showed no mass, white matter changes present, and reported mopst likely benign hypertosis frontalis. CT angio neck/head today, showed no significant carotid stenosis or no sizable intracranial aneurysm or vascular malformation. Review of Systems 10 point ROS is negative except as stated in HPI Past Medical History Past Medical History: Cancer, Diabetes Mellitus, Hyperlipidemia, Hypertension Additional Past Medical History / Comment(s): Uterine Cancer, Former Smoker (Quit 1983) History of Any Multi-Drug Resistant Organisms: None Reported Past Surgical History: Appendectomy, Cholecystectomy, Hysterectomy Past Anesthesia/Blood Transfusion Reactions: Postoperative Nausea & Vomiting (PONV) Past Psychological History: No Psychological Hx Reported Smoking Status: Former smoker Past Alcohol Use History: None Reported Past Drug Use History: None Reported Medications and Allergies Home Medications Medication Instructions Recorded Confirmed Type Aspirin EC [Ecotrin Low Dose] 81 mg PO DAILY 02/22/22 02/22/22 History Atorvastatin [Lipitor] 80 mg PO DAILY 02/22/22 02/22/22 History Ergocalciferol [Vitamin D2 (1250 1,250 mcg PO Q30D 02/22/22 02/22/22 History Mcg = 92821 Iu)] Glimepiride [Amaryl] 4 mg PO BID 02/22/22 02/22/22 History Losartan [Cozaar] 25 mg PO DAILY 02/22/22 02/22/22 History Omeprazole 20 mg PO DAILY PRN 02/22/22 02/22/22 History atenoloL 100 mg PO DAILY 02/22/22 02/22/22 History metFORMIN HCL 1,000 mg PO BID 02/22/22 02/22/22 History Allergies Allergy/AdvReac Type Severity Reaction Status Date / Time [id number] Reductase Allergy Unknown Verified 02/22/22 11:42 Inhibitor Physical Exam Vitals: Vital Signs Temp Pulse Pulse Pulse Resp BP BP 02/23/22 10:36 67 117/70 02/23/22 07:00 97.6 F 65 20 141/84 02/23/22 02:40 98.4 F 75 18 176/79 02/22/22 19:35 97.7 F 83 18 154/79 02/22/22 17:55 97.8 F 97 16 184/102 02/22/22 16:00 90 20 179/77 02/22/22 15:30 84 12 178/88 02/22/22 15:00 89 17 176/94 02/22/22 14:30 91 22 176/85 02/22/22 14:00 97 15 167/96 02/22/22 13:30 96 17 186/89 02/22/22 13:00 97 20 188/91 02/22/22 12:30 82 18 185/95 Pulse Ox 02/23/22 10:36 02/23/22 07:00 95 02/23/22 02:40 94 L 02/22/22 19:35 93 L 02/22/22 17:55 96 02/22/22 16:00 95 02/22/22 15:30 89 L 02/22/22 15:00 94 L 02/22/22 14:30 96 02/22/22 14:00 95 02/22/22 13:30 96 02/22/22 13:00 96 02/22/22 12:30 97 Intake and Output 02/22/22 02/23/22 02/23/22 22:59 06:59 14:59 Other: Voiding Method Toilet # Voids 1 2 Weight 105.233 kg - Constitutional General appearance: cooperative, no acute distress, obese - EENT EOM was not intact, pt had difficulty tracking and accommodating Eyes: anicteric sclerae, no EOMI ENT: hearing grossly normal, normal oropharynx - Respiratory Respiratory: bilateral: CTA - Cardiovascular Rhythm: regular Heart sounds: normal: S1, S2 Abnormal Heart Sounds: no systolic murmur, no diastolic murmur, no rub, no S3 Gallop, no S4 Gallop, no click, no other - Integumentary Integumentary: normal - Neurologic Strength 5/5 in upper and lower extremities, no pronator drift, slurred speech, or facial droop present. Expressive aphasia noted Neurologic: focal deficits - Musculoskeletal Musculoskeletal: strength equal bilaterally - Psychiatric Psychiatric: A&O x's 3, appropriate affect Results CBC & Chem 7: 02/23/22 05:30 02/23/22 05:30 Labs: Abnormal Lab Results - Last 24 Hours (Table) 02/22/22 02/22/22 02/23/22 Range/Units 17:57 20:53 05:30 Lymphocytes # 0.9 L (1.0-4.8) k/uL Sodium (137-145) mmol/L Carbon Dioxide (22-30) mmol/L BUN (7-17) mg/dL Creatinine (0.52-1.04) mg/dL Glucose (74-99) mg/dL POC Glucose (mg/dL) 212 H 177 H (70-110) mg/dL AST (14-36) U/L ALT (4-34) U/L 02/23/22 02/23/22 02/23/22 Range/Units 05:30 06:40 10:27 Lymphocytes # (1.0-4.8) k/uL Sodium 136 L (137-145) mmol/L Carbon Dioxide 21 L (22-30) mmol/L BUN 22 H (7-17) mg/dL Creatinine 1.14 H (0.52-1.04) mg/dL Glucose 177 H (74-99) mg/dL POC Glucose (mg/dL) 159 H 181 H (70-110) mg/dL AST 50 H (14-36) U/L ALT 40 H (4-34) U/L 02/23/22 Range/Units 12:02 Lymphocytes # (1.0-4.8) k/uL Sodium (137-145) mmol/L Carbon Dioxide (22-30) mmol/L BUN (7-17) mg/dL Creatinine (0.52-1.04) mg/dL Glucose (74-99) mg/dL POC Glucose (mg/dL) 123 H (70-110) mg/dL AST (14-36) U/L ALT (4-34) U/L CT Scan - head: report reviewed MRI - head: report reviewed, image reviewed Assessment and Plan (1) Hyperostosis frontalis interna Current Visit: Yes Status: Acute Priority: High Code(s): M85.2 - HYPEROSTOSIS OF SKULL SNOMED Code(s): 88341178 (2) Status migrainosus Current Visit: Yes Status: Acute Priority: High Code(s): G43.901 - MIGRAINE, UNSP, NOT INTRACTABLE, WITH STATUS MIGRAINOSUS SNOMED Code(s): 827138326 Plan: Abnormal bone growth of the skull -MRI of the brain image and report reviewed. MRI reads that the thickening/abnormal bone growth of the skull isfelt to benign, low suspicion for malignancy. Review of the image is not suggestive of lytic or blastic lesions. -Labs showing normal protein, calcium and renal function. -Subjectively patient denies any new pain, the headache is not necessarily new for her but, maybe a little bit worse. -Clinically there is a lower suspicion that this is malignant. However, will order paraproteinemia workup, immunoglobulin levels as well as a skeletal survey to rule out any potential malignant cause. -Will follow-up on lab results. Further recommendations to follow if clinically necessary. attests: I seen and examined patient, performed H&P, developed impression and plan of care. Discussed with dictator. Agree with documentation. Dictated as a scribe.
[2022-02-23] MEDS: SODIUM CHLORIDE 0.9% 1,000 ML IV SCH (17:28)
[2022-02-23 17:44] LABS: Glucose,Whole Blood 162 mg/dL (70-110)
[2022-02-23] MEDS ORDERED: SODIUM CHLORIDE 0.9% 1,000 ML IV SCH (19:30)
[2022-02-23 19:36] LABS: Glucose,Whole Blood 152 mg/dL (70-110)
--- NOTE | 2022-02-23 20:57 | XR ---
EXAMINATION TYPE: XR bone survey complete DATE OF EXAM: 02/23/2022 COMPARISON: None HISTORY: Possible malignancy TECHNIQUE: 16 views FINDINGS: There is hyperostosis frontalis. Calvarium is intact. There is osteopenia. There is minimal wedging of thoracic vertebra up to 10% and consistent with osteoporosis. Sacroiliac joints are intac t. There is some biconcave deformity of the lumbar vertebra without too 30% loss of height and consis tent with osteomalacia. The hip joints are intact. There is extensive soft tissue calcification in harshad th thighs and consistent with injection sites. There is contrast in the urinary bladder. The long bon es are intact. No evidence of rib fracture. Shoulder joints are intact. Bony pelvis is intact. Proxim al femurs and hip joints are intact. IMPRESSION: No focal bone destruction. No acute bony abnormality. Osteoporosis and osteomalacia type compression fractures in the thoracic and lumbar spine.
[2022-02-23] MEDS ORDERED: AMITRIPTYLINE HCL 25 MG TAB PO SCH (21:00)
[2022-02-24 00:05] LABS: Immunoglobulin M 95.9 mg/dL (40.0-280.0)
[2022-02-24 02:49] VITALS: RESP 18
[2022-02-24 05:35] LABS: Glucose,Whole Blood 157 mg/dL (70-110)
[2022-02-24] MEDS: INSULIN ASPART (NovoLOG) 100 UNIT/ML VIAL SQ SCH ×2 (06:04→12:36)
[2022-02-24 07:58] VITALS: BP 146/81; PULSE 69; TEMP 97.3
[2022-02-24] MEDS: ATORVASTATIN 80 MG TAB PO SCH (08:21)
[2022-02-24] MEDS: atenoloL 50 MG TAB PO SCH (08:21)
[2022-02-24] MEDS: LOSARTAN 25 MG TAB PO SCH (08:21)
[2022-02-24] MEDS: ASPIRIN 81 MG PO SCH (08:21)
[2022-02-24 08:37] LABS: Basophils # (A) 0.04 X 10*3/uL (0.00-0.10); Basophils % (A) 0.6 %; Eosinophils # (A) 0.08 X 10*3/uL (0.04-0.35); Eosinophils % (A) 1.1 %; HCT 39.8 % (37.2-46.3); HGB 12.5 g/dL (12.0-15.0); Immature Grans, Automated 0.3 %; Lymphocytes # (A) 2.08 X 10*3/uL (0.90-5.00); Lymphocytes % (A) 28.7 %; MCH 30.8 pg (27.0-32.0); MCHC 31.4 g/dL (32.0-37.0); Mean Platelet Volume 10.7 fL (9.5-12.2); Monocytes # (A) 0.73 X 10*3/uL (0.20-1.00); Monocytes % (A) 10.1 %; NRBC Per 100 WBC 0 /100 WBCS (0.0-0.0); Neutrophils % (A) 59.2 %; Platelet Count 228 X 10*3/uL (140-440); RBC 4.06 X 10*6/uL (4.10-5.20); RDW 12.7 % (11.5-14.5); WBC 7.25 X 10*3/uL (4.50-10.00)
[2022-02-24 09:02] LABS: African American GFR (CKD) 34.1 (60.0-200.0); Albumin 3.6 g/dL (3.8-4.9); Albumin/Globulin Ratio 1.89 (1.60-3.17); BUN/Creat Ratio 15.53 Ratio (12.00-20.00); Blood Urea Nitrogen 26.4 mg/dL (9.0-27.0); Calcium 8.6 mg/dL (8.7-10.3); Globulin 1.9 g/dL (1.6-3.3); Magnesium 1.7 mg/dL (1.5-2.4); Non-African American GFR(CKD) 29.4 (60.0-200.0); Potassium 4.4 mmol/L (3.5-5.5); Total Bilirubin 0.5 mg/dL (0.30-1.20); Total Protein 5.5 g/dL (6.2-8.2)
[2022-02-24 11:16] LABS: Free Kappa Lt Chain Qnt, Serum 2.76 mg/dL (0.33-1.94); Free Lambda Lt Chain Qnt, Seru 1.79 mg/dL (0.57-2.63)
[2022-02-24 11:47] LABS: Appearance,Urine Clear (Clear); Bacteria,Urine Rare /hpf; Bilirubin,Urine Negative (Negative); Blood,Urine Negative (Negative); Color,Urine Yellow; Glucose,Urine (UA) Negative (Negative); Ketones,Urine Negative (Negative); Leukocyte Esterase,Urine Large (Negative); Nitrite,Urine Negative (Negative); PH, Urine 5.5 (5.0-8.0); Protein,Urine Trace (Negative); RBC,Urine 1 /hpf (0-5); Specific Gravity,Urine 1.032 (1.001-1.035); Squamous Epithelial Cell,Urine 2 /hpf (0-4); WBC,Urine 21 /hpf (0-5)
[2022-02-24 12:18] LABS: Glucose,Whole Blood 124 mg/dL (70-110)
--- NOTE | 2022-02-24 12:59 | P.DS ---
Providers Date of admission: 02/22/22 14:33 Attending physician: Cb Winslow MD Consults: 02/22/22 14:32 Consult Physician Routine Consulting Provider: Diogo Sequeira Consult Reason/Comments: status migranosus Do you want consulting provider notified?: Yes 02/22/22 15:53 Consult Physician Routine Consulting Provider: David Ghotra Consult Reason/Comments: abnormal bone growth Do you want consulting provider notified?: Yes Primary care physician: Stated None Hospital Course: Admitting diagnoses: Intractable Headache Discharge diagnoses: Migraines Hyperostosis frontalis Type 2 diabetes mellitus Hypertension Hyperlipidemia Clinical course: 71-year-old female presents to the emergency room for headache. It is bifrontal. Interestingly it has been going on for years but patient did not seek medical help for it. She did not tell her primary care physician about it. He states there is a throbbing and constant. He states that at a minimum she has it 3- 4 days a week. He states it is rarely associated with nausea/vomiting, visual changes. She does have photophobia. Patient denies any focal weakness or numbness. Evaluation in the emergency department revealed elevated blood pressure at 180/90. Laboratory assessment was within normal limits except for elevated glucose at 202. A computed tomography scan of the head was negative for any acute intracranial process but it showed hyperostosis in the bilateral frontal areas. Physical exam: General: [non toxic], [no distress], [appears at stated age] Derm: [warm], [dry] Head: [atraumatic], [normocephalic], [symmetric] Eyes: [EOMI], [no lid lag], [anicteric sclera] Mouth: [no lip lesion], [mucus membranes moist] Cardiovascular: [S1S2 reg], [no murmur], [positive posterior tibial pulse bilateral], Lungs: [CTA bilateral], [no rhonchi, no rales] , [no accessory muscle use] Abdominal: [soft], [ nontender to palpation], [no guarding], [no appreciable organomegaly] Ext: [no gross muscle atrophy], [no edema], [no contractures] Neuro: [ CN II-XI grossly intact], [no focal neuro deficits] Psych: [Alert], [oriented], [appropriate affect] 1. Headaches Secondary to migraine versus hyperostosis Patient seen by neurology medications have been adjusted and patient is currently on Elavil and Fiorocet for her headaches MRI negative for intracranial mass acute/subacute infarct or abnormal enha ncement CTA reveals no significant carotid bifurcation stenosis no sizable intracranial aneurysm or vascular malformation 2. Hyperostosis Frontalis Identified by MRI hematology/oncology consulted 3. Diabetes type 2 Hold oral hypoglycemics Sliding scale insulin 4. Hypertensive urgency resolved continue home blood pressure medications 5. Hyperlipidemia Resume statin Condition: Fair Disposition: Home with home care Activity: As tolerated Diet: Diabetic Follow-up with PCP in 2-7 days Follow-up with neurology in 1-2 weeks Patient Condition at Discharge: Fair Plan - Discharge Summary Discharge Rx Participant: Yes New Discharge Prescriptions: New hydrALAZINE HCL [Apresoline] 25 mg PO QID PRN #360 tab PRN Reason: Hypertension Amitriptyline HCl [Elavil] 25 mg PO HS #30 tab Calcium Carb-Vit D 500Mg-5Mcg [Oscal 500+D 5 Mcg (200 Iu)] 1 each PO BID- W/MEALS #60 tab Butalb/APAP/Caff 50-325-40Mg [Fioricet 50-325-40] 1 tab PO Q4H PRN #30 tablet PRN Reason: Headache Continue Aspirin EC [Ecotrin Low Dose] 81 mg PO DAILY Glimepiride [Amaryl] 4 mg PO BID atenoloL 100 mg PO DAILY Omeprazole 20 mg PO DAILY PRN PRN Reason: Heartburn metFORMIN HCL 1,000 mg PO BID Ergocalciferol [Vitamin D2 (1250 Mcg = 10999 Iu)] 1,250 mcg PO Q30D Losartan [Cozaar] 25 mg PO DAILY Atorvastatin [Lipitor] 80 mg PO DAILY Discharge Medication List Aspirin EC [Ecotrin Low Dose] 81 mg PO DAILY 02/22/22 [History] Atorvastatin [Lipitor] 80 mg PO DAILY 02/22/22 [History] Ergocalciferol [Vitamin D2 (1250 Mcg = 80735 Iu)] 1,250 mcg PO Q30D 02/22/22 [History] Glimepiride [Amaryl] 4 mg PO BID 02/22/22 [History] Losartan [Cozaar] 25 mg PO DAILY 02/22/22 [History] Omeprazole 20 mg PO DAILY PRN 02/22/22 [History] atenoloL 100 mg PO DAILY 02/22/22 [History] metFORMIN HCL 1,000 mg PO BID 02/22/22 [History] Amitriptyline HCl [Elavil] 25 mg PO HS #30 tab 02/24/22 [Rx] Butalb/APAP/Caff 50-325-40Mg [Fioricet 50-325-40] 1 tab PO Q4H PRN #30 tablet 02/24/22 [Rx] Calcium Carb-Vit D 500Mg-5Mcg [Oscal 500+D 5 Mcg (200 Iu)] 1 each PO BID-W/MEALS #60 tab 02/24/22 [Rx] hydrALAZINE HCL [Apresoline] 25 mg PO QID PRN #360 tab 02/24/22 [Rx] Follow up Appointment(s)/Referral(s): Ze Connelly MD [STAFF PHYSICIAN] - 1-2 days Diogo Sequeira MD [STAFF PHYSICIAN] - 2 Weeks Discharge Disposition: HOME WITH HOME HEALTH SERVICES
--- NOTE | 2022-02-24 13:43 | P.PN ---
Subjective Progress Note Date: 02/24/22 The patient is seen at bedside and feels her headache is drastically better and today has no headache. No further speech difficulty and per nurse, she is doing better today. Patient denies any further neurological new issues. Objective - Vital Signs Vital signs: Vital Signs Temp 97.3 F L 02/24/22 07:00 Pulse 69 02/24/22 07:00 Resp 18 02/24/22 07:00 BP 146/81 02/24/22 07:00 Pulse Ox 96 02/24/22 07:00 FiO2 Intake & Output 02/23/22 02/24/22 02/24/22 18:59 06:59 18:59 Other: Voiding Method Toilet Toilet # Voids 2 2 - Exam GENERAL: The patient is lying in bed and is not in acute distress. NEUROLOGICAL: Higher mental function: The patient is awake, alert, oriented to self, time. Is following simple and complex command. No aphasia or neglect. Cranial nerves: The pupils are round, equal and reactive to light. Visual springer are full to confrontation throughout. Extraocular movement is intact no nystagmus is noted. Facial sensation is normal to touch throughout. The facial strength is normal throughout. Hearing is mildly decreased bilaterally to hand rub. Tongue is midline and moved [id number] without any difficulty. No d ysarthria is noted. Shoulder shrug is normal bilaterally. Motor: The strength is 5 over 5 throughout. Normal tone and bulk. Cerebellum: Normal finger to nose bilaterally. Sensation: Sensation is normal to touch throughout. Reflexes (right/left): Difficult to assess because of patient body habitus. Plantars are mute bilaterally. NIH Stroke Scale is 1 for expressive aphasia. Unknown last normal. As well it seem she has underlying word finding difficulty but unsure if worse than baseline which I feel seems different than yesterday. No IV tpa since unknown last normal and low NIH stroke scale and the risk outweigh the benefit. Some of the workup during his hospital visit consisted of: White blood cell is 9.0 ESR is 11 and the CRP is 0.6 which within normal limits. Serum glucose 202, creatinine is 1.09. Lee virus PCR, RSV, influenza A/B PCR is nondetected CT head is reported as no acute intracranial hemorrhage or midline shift. There is midline diffuse age-related cerebral atrophy noted. In the body of the report as reported as hyperostosis frontalis. I personally reviewed the CT and there is no acute or subacute ischemia, any intraparenchymal hemorrhage. There is no intracranial mass. The patient's bilateral frontal bones are significantly enlarged. MRI Brain is reported as No evidence of intracranial mass, acute/subacute infarct or abnormal enhancement. Benign hyperostosis frontalis. Nonspecific white matter changes, likely related to small vessel ischemic disease. I personally reviewed MRI and agree with report. CT angiography of the head and neck was reported as no significant carotid bifurcation stenosis. No sizable intracranial aneurysm or vascular malformation. NASCET criteria was used in education of this exam. - Labs CBC & Chem 7: 02/24/22 05:57 02/24/22 05:57 Labs: Abnormal Lab Results - Last 24 Hours (Table) 02/23/22 02/23/22 02/23/22 Range/Units 14:57 17:42 19:35 RBC (4.10-5.20) X 10*6/uL MCV (80.0-97.0) fL MCHC (32.0-37.0) g/dL Creatinine (0.6-1.5) mg/dL Est GFR (CKD-EPI)AfAm (60.0-200.0) Est GFR (CKD-EPI)NonAf (60.0-200.0) Glucose (70-110) mg/dL POC Glucose (mg/dL) 162 H 152 H (70-110) mg/dL Calcium (8.7-10.3) mg/dL AST (13-35) U/L ALT (8-44) U/L Total Protein (6.2-8.2) g/dL Total Protein (PEP) 6.0 L (6.2-8.2) g/dL Albumin (3.8-4.9) g/dL Urine Protein (Negative) Ur Leukocyte Esterase (Negative) Urine WBC (0-5) /hpf Urine Bacteria (None) /hpf Free [place] LC, Quant 2.76 H (0.33-1.94) mg/dL 02/24/22 02/24/22 02/24/22 Range/Units 05:34 05:57 05:57 RBC 4.06 L (4.10-5.20) X 10*6/uL MCV 98.0 H (80.0-97.0) fL MCHC 31.4 L (32.0-37.0) g/dL Creatinine 1.7 H (0.6-1.5) mg/dL Est GFR (CKD-EPI)AfAm 34.1 L (60.0-200.0) Est GFR (CKD-EPI)NonAf 29.4 L (60.0-200.0) Glucose 129 H (70-110) mg/dL POC Glucose (mg/dL) 157 H (70-110) mg/dL Calcium 8.6 L (8.7-10.3) mg/dL AST 40 H (13-35) U/L ALT 51 H (8-44) U/L Total Protein 5.5 L (6.2-8.2) g/dL Total Protein (PEP) (6.2-8.2) g/dL Albumin 3.6 L (3.8-4.9) g/dL Urine Protein (Negative) Ur Leukocyte Esterase (Negative) Urine WBC (0-5) /hpf Urine Bacteria (None) /hpf Free [place] LC, Quant (0.33-1.94) mg/dL 02/24/22 02/24/22 Range/Units 11:00 12:16 RBC (4.10-5.20) X 10*6/uL MCV (80.0-97.0) fL MCHC (32.0-37.0) g/dL Creatinine (0.6-1.5) mg/dL Est GFR (CKD-EPI)AfAm (60.0-200.0) Est GFR (CKD-EPI)NonAf (60.0-200.0) Glucose (70-110) mg/dL POC Glucose (mg/dL) 124 H (70-110) mg/dL Calcium (8.7-10.3) mg/dL AST (13-35) U/L ALT (8-44) U/L Total Protein (6.2-8.2) g/dL Total Protein (PEP) (6.2-8.2) g/dL Albumin (3.8-4.9) g/dL Urine Protein Trace H (Negative) Ur Leukocyte Esterase Large H (Negative) Urine WBC 21 H (0-5) /hpf Urine Bacteria Rare H (None) /hpf Free [place] LC, Quant (0.33-1.94) mg/dL Assessment and Plan Assessment: 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 MRI Brain w/ and w/o was suggestive of benign hyperostosis frontalis and no mass or stroke---headache is controlled. Transient Expressive Aphasia: Likely medication induced Topamax (which can cause word finding difficulty). Also she had underlying word finding difficulty per daughter but possibly worse than baseline---resolved after discontinuation of Topamax. Hypertension Diabetes mellitus Plan: I stopped Topamax and started her on Elavil 25mg qhs for headache control which can be increased to 50mg qhs if continues to have uncontrolled headache. Fioricet PRN. started on Zofran 4mg every 6 hours. She is on ASA 81mg daily and Lipitor 80mg daily her home medication which is sufficient for secondary stroke prophylaxis. Oncology is consulted. Will defer the rest of medical management to primary team. Recommend patient to follow-up with neurologist as outpatient within 1-2 weeks. The plan is discussed with patient and her nurse. There is no further neurological work-up. Time with Patient: Less than 30
[2022-02-24 15:40] LABS: Albumin 3.47 g/dL (3.80-4.90); Gamma Globulin 0.64 g/dL (0.70-1.50)
[2022-02-24] MEDS ORDERED: CALCIUM CARB-VIT D 500 MG-5 MCG TAB PO SCH (17:30)
[2022-03-01] MEDS ORDERED: ERGOCALCIFEROL 1,250 MCG (50,000 IU) CAPSULE PO SCH (09:00)
== END 2022-02-24 14:05 | disposition home health service (06) ==
LOC: EC 09:37 → 6NMEDSUR 14:33
PROVIDERS: ADMIT Family Medicine; ATTEND Family Medicine
DX: G43.901 Migraine, unspecified, not intractable, with status migrainosus (principal); I16.0 Hypertensive urgency; M85.2 Hyperostosis of skull; R47.01 Aphasia; Z85.42 Personal history of malignant neoplasm of other parts of uterus; I10 Essential (primary) hypertension; E11.65 Type 2 diabetes mellitus with hyperglycemia; E78.5 Hyperlipidemia, unspecified; Z90.49 Acquired absence of other specified parts of digestive tract; Z90.710 Acquired absence of both cervix and uterus; Z79.82 Long term (current) use of aspirin; Z79.84 Long term (current) use of oral hypoglycemic drugs; Z79.899 Other long term (current) drug therapy; Z88.8 Allergy status to other drugs, medicaments and biological substances; Z20.822 Contact with and (suspected) exposure to COVID-19
CPT/HCPCS: 96365; 96366; 96375; 99285; 36415; 93005; 80053 ×3; 85652; 83735 ×2; 85025 ×3; 85610; 85730; 86140; 81001; 82784 ×3; 84165; 87086; 86334; 83883; 87636; 77075; 70496; 70450; 70498; 70553; G0378 ×3; J1200; J1100; J2405; J3475; J1885; Q9967; A9585; 96376

== ENCOUNTER 2022-11-25 01:10 | Inpatient (IN) | payer MEDICARE ==
[2022-11-25] MEDS ORDERED: KETOROLAC 15 MG/ML 1 ML VIAL IVP STA (01:20)
[2022-11-25] MEDS ORDERED: SODIUM CHLORIDE 0.9% 1,000 ML IV STA (01:20)
--- NOTE | 2022-11-25 01:32 | ED ---
Weakness HPI - General Chief complaint: Weakness Stated complaint: Weakness Time Seen by Provider: 11/25/22 01:12 Source: patient, EMS, RN notes reviewed Mode of arrival: EMS Limitations: no limitations - History of Present Illness Initial comments: This is a 72-year-old female who presents to the emergency department for weakness and dental pain. States that on 11/16, her , and later that day, she had 2 teeth pulled. She has since been going to her dentist every couple of days to have her mouth repacked. She is continuing to have severe pain related to this. She is taking ibuprofen with no relief in symptoms. She is also taking amoxicillin. States that since around this time, she has also felt very weak and fatigued. Feels like she has no energy. Denies any chest pain or shortness of breath. Denies any fevers, chills, sore throat, cough, dyspnea, chest pain, palpitations, abdominal pain, nausea, vomiting, diarrhea, back pain, or headaches. MD Complaint: generalized weakness - Related Data Home Medications Medication Instructions Recorded Confirmed Aspirin EC [Ecotrin Low Dose] 81 mg PO DAILY 02/22/22 02/22/22 Atorvastatin [Lipitor] 80 mg PO DAILY 02/22/22 02/22/22 Ergocalciferol [Vitamin D2 (1250 1,250 mcg PO Q30D 02/22/22 02/22/22 Mcg = 80682 Iu)] Glimepiride [Amaryl] 4 mg PO BID 02/22/22 02/22/22 Losartan [Cozaar] 25 mg PO DAILY 02/22/22 02/22/22 Omeprazole 20 mg PO DAILY PRN 02/22/22 02/22/22 atenoloL 100 mg PO DAILY 02/22/22 02/22/22 metFORMIN HCL 1,000 mg PO BID 02/22/22 02/22/22 Previous Rx's Medication Instructions Recorded Amitriptyline HCl [Elavil] 25 mg PO HS #30 tab 02/24/22 Butalb/APAP/Caff 50-325-40Mg 1 tab PO Q4H PRN #30 tablet 02/24/22 [Fioricet 50-325-40] Calcium Carb-Vit D 500Mg-5Mcg 1 each PO BID-W/MEALS #60 tab 02/24/22 [Oscal 500+D 5 Mcg (200 Iu)] hydrALAZINE HCL [Apresoline] 25 mg PO QID PRN #360 tab 02/24/22 Allergies Allergy/AdvReac Type Severity Reaction Status Date / Time Jreffti-IHF-IyL Reductase Allergy Unknown Verified 02/22/22 11:42 Inhibitor Review of Systems ROS Statement: Those systems with pertinent positive or pertinent negative responses have been documented in the HPI. ROS Other: All systems not noted in ROS Statement are negative. Past Medical History Past Medical History: Cancer, Diabetes Mellitus, Hyperlipidemia, Hypertension Additional Past Medical History / Comment(s): Uterine Cancer, Former Smoker (Quit 1983) History of Any Multi-Drug Resistant Organisms: None Reported Past Surgical History: Appendectomy, Cholecystectomy, Hysterectomy Past Anesthesia/Blood Transfusion Reactions: Postoperative Nausea & Vomiting (PONV) Past Psychological History: No Psychological Hx Reported Smoking Status: Former smoker Past Alcohol Use History: None Reported Past Drug Use History: None Reported General Exam Limitations: no limitations General appearance: alert, in no apparent distress Head exam: Present: atraumatic, normocephalic, normal inspection Respiratory exam: Present: normal lung sounds bilaterally. Absent: respiratory distress, wheezes, rales, rhonchi, stridor Cardiovascular Exam: Present: regular rate, normal rhythm, normal heart sounds. Absent: systolic murmur, diastolic murmur, rubs, gallop, clicks Neurological exam: Present: alert, oriented X3, CN II-XII intact Psychiatric exam: Present: normal affect, normal mood Skin exam: Present: warm, dry, intact, normal color. Absent: rash Course Vital Signs 11/25/22 11/25/22 01:12 02:13 Temperature 97.9 F Pulse Rate 73 70 Respiratory 18 18 Rate Blood Pressure 106/52 109/58 O2 Sat by Pulse 90 L 96 Oximetry Medical Decision Making - Medical Decision Making This is a 72-year-old female who presents to the emergency department for generalized weakness. Was pt. sent in by a medical professional or institution? @ -No Did you speak to anyone other than the patient for history? @ -No Did you review nursing and triage notes? @ -Yes, and I agree, it is accurate with regards to the patient's symptoms. Were old charts reviewed? @ -No Differential Diagnosis? @ -Differential Weakness: Hypoglycemia, shock, sepsis, hyponatremia, anemia, infection, TX, ETOH, adverse medicine reaction, overdose, stroke, this is not meant to be an all-inclusive list. EKG interpreted by me (3pts min.)? @ -EKG interpreted by me demonstrating the following: Sinus rhythm. Ventricular rate 72 beats per minute, DE interval 173 ms, QRS duration 91 ms, QTC 421 ms. X-rays interpreted by me (1pt min.)? @ -Not obtained CT interpreted by me (1pt min.)? @ -Not obtained U/S interpreted by me (1pt. min.)? @ -Not obtained What testing was considered but not performed? (CT, X-rays, U/S, labs)? Why? @ -None What meds were considered but not given? Why? @ -None Did you discuss the management of the patient with other professionals? @ -No Did you reconcile home meds? @ -No Was smoking cessation discussed for >3mins.? @ -No Was critical care preformed (if so, how long)? @ -No Were there social determinants of health that impacted care today? How? (Homelessness, low income, unemployed, alcoholism, drug addiction, transportation, low edu. Level, literacy, decrease access to med. care, long-term, rehab)? @ -No Was there de-escalation of care discussed even if they declined? (Discuss DNR or withdrawal of care, Hospice)? @ -No What co-morbidities impacted this encounter? (DM, HTN, Smoking, COPD, CAD, Canc er, CVA, Hep., AIDS, mental health diagnosis, sleep apnea, morbid obesity)? @ -DM, HLD, HTN Was patient admitted / discharged? @ -Admitted. Lab work obtained revealing an BANDAR with a creatinine of 3.14 and a GFR of 14. Lab work was otherwise fairly nonactionable. Urinalysis was positive for infection. Urine was sent for culture. Her blood pressure was also fairly soft on arrival. She was initially given a dose of Toradol prior to receiving her blood work demonstrating the BANDAR, otherwise it would not have been administered. Patient admitted to medicine for further management of BANDAR, UTI, and weakness. She was given a dose of ceftriaxone and started on maintenance IV fluids. Undiagnosed new problem with uncertain prognosis? @ -None Drug Therapy requiring intensive monitoring for toxicity (Heparin, Nitro, Insulin, Cardizem)? @ -None Were any procedures done? @ -None Diagnosis/symptom? @ -UTI, BANDAR, weakness Acute, or Chronic, or Acute on Chronic? @ -Acute Uncomplicated (without systemic symptoms) or Complicated (systemic symptoms)? @ -Complicated Side effects of treatment? @ -None Exacerbation, Progression, or Severe Exacerbation] @ -Not applicable Poses a threat to life or bodily function? @ -Yes This case was discussed in detail with the attending ED physician, Dr. Whitmore. Presentation, findings, and treatment plan discussed in detail as well. - Lab Data Result diagrams: 11/25/22 01:25 11/25/22 01:25 Lab Results 11/25/22 11/25/22 11/25/22 Range/Units 01:25 01:25 01:25 WBC 7.1 (3.8-10.6) k/uL RBC 3.70 L (3.80-5.40) m/uL Hgb 11.8 (11.4-16.0) gm/dL Hct 36.3 (34.0-46.0) % MCV 98.0 (80.0-100.0) fL MCH 31.9 (25.0-35.0) pg MCHC 32.6 (31.0-37.0) g/dL RDW 13.3 (11.5-15.5) % Plt Count 194 (150-450) k/uL MPV 9.6 Neutrophils % 71 % Lymphocytes % 11 % Monocytes % 6 % Eosinophils % 10 % Basophils % 0 % Neutrophils # 5.0 (1.3-7.7) k/uL Lymphocytes # 0.8 L (1.0-4.8) k/uL Monocytes # 0.4 (0-1.0) k/uL Eosinophils # 0.7 (0-0.7) k/uL Basophils # 0.0 (0-0.2) k/uL PT 11.1 (9.0-12.0) sec INR 1.1 (<1.2) APTT 22.2 (22.0-30.0) sec Sodium 137 (137-145) mmol/L Potassium 4.7 (3.5-5.1) mmol/L Chloride 106 (98-107) mmol/L Carbon Dioxide 18 L (22-30) mmol/L Anion Gap 13 mmol/L BUN 54 H (7-17) mg/dL Creatinine 3.14 H (0.52-1.04) mg/dL Est GFR (CKD-EPI)AfAm 16 (>60 ml/min/1.73 sqM) Est GFR (CKD-EPI)NonAf 14 (>60 ml/min/1.73 sqM) Glucose 165 H (74-99) mg/dL Plasma Lactic Acid [place] (0.7-2.0) mmol/L Calcium 7.6 L (8.4-10.2) mg/dL Total Bilirubin 0.8 (0.2-1.3) mg/dL AST 24 (14-36) U/L ALT 16 (4-34) U/L Alkaline Phosphatase 44 (38-126) U/L Troponin I (0.000-0.034) ng/mL Total Protein 5.7 L (6.3-8.2) g/dL Albumin 3.2 L (3.5-5.0) g/dL Urine Color Urine Appearance (Clear) Urine pH (5.0-8.0) Ur Specific [place] (1.001-1.035) Urine Protein (Negative) Urine Glucose (UA) (Negative) Urine Ketones (Negative) Urine Blood (Negative) Urine Nitrite (Negative) Urine Bilirubin (Negative) Urine Urobilinogen (<2.0) mg/dL Ur Leukocyte Esterase (Negative) Urine RBC (0-5) /hpf Urine WBC (0-5) /hpf Urine WBC Clumps (None) /hpf Urine Bacteria (None) /hpf 11/25/22 11/25/22 11/25/22 Range/Units 01:25 01:25 03:50 WBC (3.8-10.6) k/uL RBC (3.80-5.40) m/uL Hgb (11.4-16.0) gm/dL Hct (34.0-46.0) % MCV (80.0-100.0) fL MCH (25.0-35.0) pg MCHC (31.0-37.0) g/dL RDW (11.5-15.5) % Plt Count (150-450) k/uL MPV Neutrophils % % Lymphocytes % % Monocytes % % Eosinophils % % Basophils % % Neutrophils # (1.3-7.7) k/uL Lymphocytes # (1.0-4.8) k/uL Monocytes # (0-1.0) k/uL Eosinophils # (0-0.7) k/uL Basophils # (0-0.2) k/uL PT (9.0-12.0) sec INR (<1.2) APTT (22.0-30.0) sec Sodium (137-145) mmol/L Potassium (3.5-5.1) mmol/L Chloride (98-107) mmol/L Carbon Dioxide (22-30) mmol/L Anion Gap mmol/L BUN (7-17) mg/dL Creatinine (0.52-1.04) mg/dL Est GFR (CKD-EPI)AfAm (>60 ml/min/1.73 sqM) Est GFR (CKD-EPI)NonAf (>60 ml/min/1.73 sqM) Glucose (74-99) mg/dL Plasma Lactic Acid [place] 1.6 (0.7-2.0) mmol/L Calcium (8.4-10.2) mg/dL Total Bilirubin (0.2-1.3) mg/dL AST (14-36) U/L ALT (4-34) U/L Alkaline Phosphatase (38-126) U/L Troponin I <0.012 (0.000-0.034) ng/mL Total Protein (6.3-8.2) g/dL Albumin (3.5-5.0) g/dL Urine Color Colorless Urine Appearance Cloudy H (Clear) Urine pH 5.5 (5.0-8.0) Ur Specific [place] 1.011 (1.001-1.035) Urine Protein 1+ H (Negative) Urine Glucose (UA) Trace H (Negative) Urine Ketones Negative (Negative) Urine Blood Negative (Negative) Urine Nitrite Positive H (Negative) Urine Bilirubin Negative (Negative) Urine Urobilinogen <2.0 (<2.0) mg/dL Ur Leukocyte Esterase Large H (Negative) Urine RBC <1 (0-5) /hpf Urine WBC 92 H (0-5) /hpf Urine WBC Clumps Many H (None) /hpf Urine Bacteria Many H (None) /hpf Disposition Clinical Impression: BANDAR (acute kidney injury), Weakness, UTI (urinary tract infection) Disposition: ADMITTED IP TO THIS HOSP Referrals: None,Stated [REFERRING] - 1-2 days
[2022-11-25 02:12] LABS: Basophils % (A) 0 %; Eosinophils # (A) 0.7 k/uL (0-0.7); Eosinophils % (A) 10 %; HCT 36.3 % (34.0-46.0); HGB 11.8 gm/dL (11.4-16.0); Lymphocytes # (A) 0.8 k/uL (1.0-4.8); Lymphocytes % (A) 11 %; MCH 31.9 pg (25.0-35.0); MCHC 32.6 g/dL (31.0-37.0); Mean Platelet Volume 9.6; Monocytes # (A) 0.4 k/uL (0-1.0); Monocytes % (A) 6 %; Neutrophils % (A) 71 %; Platelet Count 194 k/uL (150-450); RDW 13.3 % (11.5-15.5); WBC 7.1 k/uL (3.8-10.6)
[2022-11-25 02:23] LABS: ALT 16 U/L (4-34); AST 24 U/L (14-36); African American GFR (CKD) 16 (>60 ml/min/1.73 sqM); Albumin 3.2 g/dL (3.5-5.0); Alkaline Phosphatase 44 U/L (38-126); Anion Gap 13 mmol/L; Blood Urea Nitrogen 54 mg/dL (7-17); Calcium 7.6 mg/dL (8.4-10.2); Carbon Dioxide 18 mmol/L (22-30); Chloride 106 mmol/L (98-107); Glucose 165 mg/dL (74-99); Non-African American GFR(CKD) 14 (>60 ml/min/1.73 sqM); Potassium 4.7 mmol/L (3.5-5.1); Sodium 137 mmol/L (137-145); Total Bilirubin 0.8 mg/dL (0.2-1.3); Total Protein 5.7 g/dL (6.3-8.2)
[2022-11-25 02:26] LABS: INR 1.1 (<1.2); Partial Thromboplastin Time 22.2 sec (22.0-30.0); Prothrombin Time 11.1 sec (9.0-12.0)
[2022-11-25 04:31] LABS: Appearance,Urine Cloudy (Clear); Bacteria,Urine Many /hpf; Bilirubin,Urine Negative (Negative); Blood,Urine Negative (Negative); Color,Urine Colorless; Glucose,Urine (UA) Trace (Negative); Ketones,Urine Negative (Negative); Leukocyte Esterase,Urine Large (Negative); Nitrite,Urine Positive (Negative); PH, Urine 5.5 (5.0-8.0); Protein,Urine 1+ (Negative); RBC,Urine <1 /hpf (0-5); Specific Gravity,Urine 1.011 (1.001-1.035); Urobilinogen,Urine <2.0 mg/dL (<2.0); WBC,Urine 92 /hpf (0-5)
[2022-11-25] MEDS ORDERED: NALOXONE 0.4 MG/ML 1 ML VIAL IV PRN (04:44)
[2022-11-25] MEDS ORDERED: MORPHINE SULFATE 4 MG/ML SYRINGE IV PRN (04:44)
[2022-11-25] MEDS ORDERED: cefTRIAXone IN SWFI 1,000 MG/10 ML SYRINGE IVP STA (04:44)
[2022-11-25] MEDS: SODIUM CHLORIDE 0.9% 1,000 ML IV SCH ×2 (05:08→13:35)
[2022-11-25] MEDS: HYDROmorphone 0.5 MG/0.5 ML SYRINGE IVP PRN ×2 (05:21→19:15)
[2022-11-25] MEDS ORDERED: hydrALAZINE HCL 25 MG TAB PO PRN (08:24)
--- NOTE | 2022-11-25 09:25 | CT ---
EXAMINATION TYPE: CT brain wo con DATE OF EXAM: 11/25/2022 COMPARISON: 02/22/22 HISTORY: ams CT DLP: 1064.[address] of the brain was performed. The ventricles, basal cisterns and sulci overlying the cerebral convexities demonstrate mild enlargem ent. There is no evidence for intracranial hemorrhage or sulcal effacement. There is decreased attenuation about the periventricular white matter and deep white matter of both c erebral hemispheres, compatible with chronic small vessel ischemia. Differential diagnosis does inclu de demyelination. No mass effects are seen.No midline shift. Osseous calvarium is intact. If symptoms persist consider MRI. IMPRESSION: 1. Age related atrophic and chronic small vessel ischemic change without acute intracranial process s een at this time.
[2022-11-25] MEDS: ASPIRIN 81 MG PO SCH (09:27)
[2022-11-25] MEDS: atenoloL 50 MG TAB PO SCH (09:27)
[2022-11-25] MEDS: LORATADINE 10 MG TAB PO SCH (09:27)
[2022-11-25 13:10] LABS: Glucose,Whole Blood 161 mg/dL (70-110)
[2022-11-25] MEDS ORDERED: LIDOCAINE 2% GLYDO JELLY 11 ML APPL MUCOUS MEM ONE (14:37)
[2022-11-25] MEDS: ACETAMINOPHEN TAB 325 MG TAB PO PRN (14:38)
[2022-11-25] MEDS ORDERED: DEXTROSE 50% SYRINGE 50 ML IVP PRN ×2 (15:27)
--- NOTE | 2022-11-25 15:32 | P.HPIM ---
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 Currently with expressive aphasia, unable to obtain full details. Shakes head yes to mouth pain and no to chest pain, or shortness of breath. Denies nausea vomiting or diarrhea. UA positive, culture pending with antibiotics of ceftriaxone initiated. Received Toradol in the ER prior to labs reflecting creatinine of 3.14 and GFR 14. Maintained on IV fluid hydration. Review of Systems ROS unable to obtain at this time. Expressive aphasia present- Shaking head no to everything except for mouth pain. Past Medical History Past Medical History: Cancer, Diabetes Mellitus, Hyperlipidemia, Hypertension Additional Past Medical History / Comment(s): Uterine Cancer, Former Smoker (Quit 1983) History of Any Multi-Drug Resistant Organisms: None Reported Past Surgical History: Appendectomy, Cholecystectomy, Hysterectomy Past Anesthesia/Blood Transfusion Reactions: Postoperative Nausea & Vomiting (PONV) Past Psychological History: No Psychological Hx Reported Smoking Status: Former smoker Past Alcohol Use History: None Reported Past Drug Use History: None Reported Medications and Allergies Home Medications Medication Instructions Recorded Confirmed Type Aspirin EC [Ecotrin Low Dose] 81 mg PO DAILY 02/22/22 11/25/22 History Atorvastatin [Lipitor] 80 mg PO HS 02/22/22 11/25/22 History Ergocalciferol [Vitamin D2 (1250 1,250 mcg PO Q30D 02/22/22 11/25/22 History Mcg = 88382 Iu)] Glimepiride [Amaryl] 4 mg PO BID 02/22/22 11/25/22 History Losartan [Cozaar] 25 mg PO DAILY 02/22/22 11/25/22 History atenoloL 100 mg PO DAILY 02/22/22 11/25/22 History metFORMIN HCL 1,000 mg PO BID 02/22/22 11/25/22 History Butalb/APAP/Caff 50-325-40Mg 1 tab PO Q4H PRN #30 tablet 02/24/22 11/25/22 Rx [Fioricet 50-325-40] hydrALAZINE HCL [Apresoline] 25 mg PO QID PRN #360 tab 02/24/22 11/25/22 Rx Amoxicillin 875 mg PO BID 11/25/22 11/25/22 History Calcium Carb-Vit D 500Mg-5Mcg 1 tab PO DAILY 11/25/22 11/25/22 History [Oscal 500+D 5 Mcg (200 Iu)] Cetirizine HCl [Zyrtec] 10 mg PO DAILY 11/25/22 11/25/22 History Chlorhexidine Gluconate [Peridex] 15 ml PO PC-BID 11/25/22 11/25/22 History Ibuprofen [Motrin] 600 mg PO Q6H PRN 11/25/22 11/25/22 History Allergies Allergy/AdvReac Type Severity Reaction Status Date / Time [id number] Reductase Allergy Unknown Verified 11/25/22 06:27 Inhibitor morphine AdvReac Unknown Verified 11/25/22 06:27 Physical Exam Vitals: Vital Signs Temp Pulse Pulse Resp BP BP Pulse Ox 11/25/22 07:26 86 16 96/46 96 11/25/22 07:00 98.7 F 78 16 116/56 99 11/25/22 05:20 75 16 102/48 95 11/25/22 02:13 70 18 109/58 96 11/25/22 01:12 97.9 F 73 18 106/52 90 L Intake and Output 11/24/22 11/25/22 11/25/22 22:59 06:59 14:59 Output Total 400 Balance -400 Output: Urine 400 Other: Weight 99.79 kg PHYSICAL EXAM: VITAL SIGNS: [As above] GENERAL: Sitting up in bed, alert to person, expressive aphasia, demonstrating with hands to mouth-mouth pain. HEENT: Conjunctivae normal. eyes normal. NECK: Supple, No JVD. No thyroid enlargement. No LNs CARDIOVASCULAR: S1, S2 regular..No murmur RESPIRATION: Unlabored, equal air entry .clear to auscultation with bilateral bases diminished. ABDOMEN: Soft, nondistended, nontender . No guarding. no masses palpable. No ascites, No hepatosplenomegaly.Bowel sounds heard. LEGS: Trace edema. no calf tenderness, positive DP pulses. NERVOUS SYSTEM: Limited exam;Appears alert and oriented to person, calm, expressive aphasia present. Follows simple commands Skin: Warm and dry, no rash. Results CBC & Chem 7: 11/25/22 01:25 11/25/22 01:25 Labs: Abnormal Lab Results - Last 24 Hours (Table) 11/25/22 11/25/22 11/25/22 Range/Units 01:25 01:25 03:50 RBC 3.70 L (3.80-5.40) m/uL Lymphocytes # 0.8 L (1.0-4.8) k/uL Carbon Dioxide 18 L (22-30) mmol/L BUN 54 H (7-17) mg/dL Creatinine 3.14 H (0.52-1.04) mg/dL Glucose 165 H (74-99) mg/dL POC Glucose (mg/dL) (70-110) mg/dL Calcium 7.6 L (8.4-10.2) mg/dL Total Protein 5.7 L (6.3-8.2) g/dL Albumin 3.2 L (3.5-5.0) g/dL Urine Appearance Cloudy H (Clear) Urine Protein 1+ H (Negative) Urine Glucose (UA) Trace H (Negative) Urine Nitrite Positive H (Negative) Ur Leukocyte Esterase Large H (Negative) Urine WBC 92 H (0-5) /hpf Urine WBC Clumps Many H (None) /hpf Urine Bacteria Many H (None) /hpf 11/25/22 Range/Units 12:51 RBC (3.80-5.40) m/uL Lymphocytes # (1.0-4.8) k/uL Carbon Dioxide (22-30) mmol/L BUN (7-17) mg/dL Creatinine (0.52-1.04) mg/dL Glucose (74-99) mg/dL POC Glucose (mg/dL) 161 H (70-110) mg/dL Calcium (8.4-10.2) mg/dL Total Protein (6.3-8.2) g/dL Albumin (3.5-5.0) g/dL Urine Appearance (Clear) Urine Protein (Negative) Urine Glucose (UA) (Negative) Urine Nitrite (Negative) Ur Leukocyte Esterase (Negative) Urine WBC (0-5) /hpf Urine WBC Clumps (None) /hpf Urine Bacteria (None) /hpf Assessment and Plan Assessment: Acute UTI, culture pending Acute Metabolic encephalopathy secondary to the above Acute renal failure possibly induced by decreased oral intake, medications-prior to inpatient, was on Cozaar, antibiotics CKD III, baseline creatinine 1.1 to 1.7. Expressive aphasia, in a patient with history of transient expressive aphasia, previously induced by Topamax which was discontinued. 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 MRI brain with and without ,at that time suggestive of benign hyperostosis frontalis and no mass or stroke. Low suspicion for malignancy reported as per oncology evaluation during that inpatient visit, with multiple further studies ordered to rule out potential malignant cause, including bone survey which reported no focal bone destruction no acute bone abnormality, osteoporosis and osteomalacia type compression fractures in the thoracic and lumbar spine. Reports recent extraction of 2 teeth left molars. Diabetes mellitus type 2 Hypertension Hyperlipidemia Morbid obesity, BMI 42 Plan: Continue on current medication regime ,monitoring and symptomatic treatme nt. Pain management, chlorhexidine mouthwash and lidocaine ordered for mouth pain in addition to Tylenol.(Oral surgeon Dr. Porras.) Neurology consult in place. Maintain IV antibiotics of ceftriaxone, gentle IV fluid antibiotics. Close monitoring of blood sugars, NovoLog sliding scale and low dose Lantus initiated. Repeat BMP pending. nephrology consulted. The impression and plan of care has been dictated as directed. : I performed a history and examination of this patient, discussed the same with the dictator. I agree with the dictator's note ,documented as a scribe. Any additional findings or plans will be noted.
[2022-11-25 15:57] LABS: African American GFR (CKD) 18 (>60 ml/min/1.73 sqM); Anion Gap 9 mmol/L; Blood Urea Nitrogen 50 mg/dL (7-17); Carbon Dioxide 18 mmol/L (22-30); Chloride 111 mmol/L (98-107); Glucose 137 mg/dL (74-99); Non-African American GFR(CKD) 16 (>60 ml/min/1.73 sqM); Potassium 4.3 mmol/L (3.5-5.1); Sodium 138 mmol/L (137-145)
[2022-11-25 17:40] LABS: Glucose,Whole Blood 248 mg/dL (70-110)
[2022-11-25] MEDS: INSULIN DETEMIR (LEVEMIR) 100 UNIT/ML SYR SQ SCH (18:09)
[2022-11-25] MEDS: INSULIN ASPART (NovoLOG) 100 UNIT/ML VIAL SQ SCH ×2 (18:09→21:45)
[2022-11-25 21:09] LABS: Glucose,Whole Blood 170 mg/dL (70-110)
[2022-11-25] MEDS: ATORVASTATIN 80 MG TAB PO SCH (21:44)
[2022-11-25] MEDS: CHLORHEXIDINE GLUCONATE 15 ML CUP MUCOUS MEM SCH (21:45)
[2022-11-26] MEDS: INSULIN ASPART (NovoLOG) 100 UNIT/ML VIAL SQ SCH ×4 (06:47→20:32)
[2022-11-26] MEDS: SODIUM CHLORIDE 0.9% 1,000 ML IV SCH ×4 (06:48→17:35)
[2022-11-26 06:49] LABS: Glucose,Whole Blood 86 mg/dL (70-110)
[2022-11-26] MEDS: INSULIN DETEMIR (LEVEMIR) 100 UNIT/ML SYR SQ SCH (07:46)
[2022-11-26] MEDS: ACETAMINOPHEN TAB 325 MG TAB PO PRN (07:46)
[2022-11-26] MEDS: CHLORHEXIDINE GLUCONATE 15 ML CUP MUCOUS MEM SCH ×2 (08:31→21:52)
[2022-11-26] MEDS: atenoloL 50 MG TAB PO SCH (08:31)
[2022-11-26] MEDS: ASPIRIN 81 MG PO SCH (08:31)
[2022-11-26] MEDS: LORATADINE 10 MG TAB PO SCH (08:31)
[2022-11-26] MEDS: HYDROmorphone 0.5 MG/0.5 ML SYRINGE IVP PRN ×4 (08:44→21:57)
[2022-11-26 09:21] LABS: BUN/Creat Ratio 16.92 Ratio (12.00-20.00); Blood Urea Nitrogen 40.6 mg/dL (9.0-27.0); Calcium 7.1 mg/dL (8.7-10.3); Chloride 112 mmol/L (96-109); Chol/HDL Ratio 4.19 Ratio; Glucose 91 mg/dL (70-110); LDL Cholesterol,Calculated 65.5 mg/dL (0.0-131.0); Potassium 4.4 mmol/L (3.5-5.5); Sodium 143 mmol/L (135-145)
[2022-11-26 09:41] LABS: Vitamin B12 <150.0 pg/mL (200.0-944.0)
--- NOTE | 2022-11-26 10:02 | P.CNNES ---
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 Patient mentions that her on 11/18/2022. She had undergone 2 teeth pulling by the dentist around the same time. It was packed and patient has a dry socket. Since then she has not been eating, drinking and has been feeling very weak, tired. On the day of admission, patient states that she was going to the bathroom, and felt so weak, that she just lowered herself to the ground at around 11:30 PM. She denies passing out, or loss of consciousness or any seizure-like activity. The family called ambulance and she was brought to the hospital. As per EMS flow sheet, they were called after patient fell while walking to the bathroom. When they arrived, patient was sitting in the hallway behind her walker appearing to be fatigued alert and oriented 4. Patient denied any injuries. No bleeding or bruising or deformities. Patient denies loss of consciousness prior to the fall but states that she feels dizzy and lightheaded upon standing and lowered herself to the ground. Per family, patient was on the ground for about an hour. Patient was assisted to a standing position with an assistance 2 and was assisted with ambulation to the toilet. Per family, she was sitting on the couch for 2 hours ago when she began to have shakiness and fatigue thinking that her blood sugar was low due to diabetes. Her vitals at e scene was blood pressure 100/50, pulse rate 70, blood sugar 161 respirations 16, saturation 95% and temperature 97.1. Blood test shows normal WBC, hemoglobin 11.8, platelets 194. PT/PTT normal, el ectrolytes are normal, BUN 54, creatinine 3.14, hepatic panel is normal, troponin negative. UA shows positive nitrite, large amount of leukocyte Estrace, [address] head revealed age-related atrophic and chronic small vessel ischemic changes without acute intracranial process. I personally revie wed CT head, agree with the findings. EKG shows sinus rhythm. Patient had a CTA of head and neck performed on 02/23/2022, which revealed no significant carotid bifurcation stenosis. No sizable intracranial aneurysm or vascular malformation. When I entered the room, patient was sleeping. On waking her up, patient appeared to have some expressive aphasia, with significant paraphasic errors and word finding problem. However as I examined the patient, the symptoms improved and her speech was almost back to normal. I spoke to patient's daughter who came later, mentions that patient's speech was affected this morning, when she talked to her on the phone. However it seems to be improving rapidly now. Patient at present continues to have intermittent significant pain in her dental extraction site. Almost looks like trigeminal neuralgia. Patient is trying not to talk too much because her teeth are hurting. Patient denies any numbness or tingling or any focal weakness. Patient has history of hypertension, diabetes for a long time, denies any tobacco or alcohol use. No previous history of strokes or TIA. Patient was seen by Dr. Diogo Sequeira on 02/22/2022 for cephalgia. MRI of the brain was negative at that time. Patient was started on Topamax and Fioricet. Patient developed acute speech difficulty while she was in the hospital at that time. Topamax was discontinued and patient started on Elavil. Her speech difficulty completely resolved. Patient has been fine since then. Review of Systems Constitutional: Denies chills, Denies chronic headaches, Denies fever, Denies sweats Eyes: denies blurred vision, denies diplopia, denies pain Ears: deny: decreased hearing, ear discharge Ears, nose, mouth and throat: Denies headache, Denies sore throat, Denies v ertigo Cardiovascular: Denies chest pain, Denies shortness of breath Respiratory: Denies cough, Denies excessive sputum Gastrointestinal: Denies abdominal pain, Denies diarrhea, Denies nausea, Denies vomiting Genitourinary: Reports urge incontinence, Denies dysuria, Denies hematuria, Denies urgency Musculoskeletal: Reports low back pain, Reports neck pain, Denies myalgias Integumentary: Denies pruritus, Denies rash Neurological: Denies loss of vision, Denies numbness, Denies paresthesias, Denies seizures, Denies tingling, Denies vertigo, Denies weakness, Denies visual changes Psychiatric: Reports depression ( passing), Denies anxiety Endocrine: Reports fatigue, Denies weight change Hematologic/Lymphatic: Denies easy bleeding, Denies easy bruising Past Medical History Past Medical History: Cancer, Diabetes Mellitus, Hyperlipidemia, Hypertension Additional Past Medical History / Comment(s): Uterine Cancer, Former Smoker (Quit 1983) History of Any Multi-Drug Resistant Organisms: None Reported Past Surgical History: Appendectomy, Cholecystectomy, Hysterectomy Past Anesthesia/Blood Transfusion Reactions: Postoperative Nausea & Vomiting (PONV) Past Psychological History: No Psychological Hx Reported Smoking Status: Former smoker Past Alcohol Use History: None Reported Past Drug Use History: None Reported Medications and Allergies Home Medications Medication Instructions Recorded Confirmed Type Aspirin EC [Ecotrin Low Dose] 81 mg PO DAILY 02/22/22 11/25/22 History Atorvastatin [Lipitor] 80 mg PO HS 02/22/22 11/25/22 History Ergocalciferol [Vitamin D2 (1250 1,250 mcg PO Q30D 02/22/22 11/25/22 History Mcg = 60087 Iu)] Glimepiride [Amaryl] 4 mg PO BID 02/22/22 11/25/22 History Losartan [Cozaar] 25 mg PO DAILY 02/22/22 11/25/22 History atenoloL 100 mg PO DAILY 02/22/22 11/25/22 History metFORMIN HCL 1,000 mg PO BID 02/22/22 11/25/22 History Butalb/APAP/Caff 50-325-40Mg 1 tab PO Q4H PRN #30 tablet 02/24/22 11/25/22 Rx [Fioricet 50-325-40] hydrALAZINE HCL [Apresoline] 25 mg PO QID PRN #360 tab 02/24/22 11/25/22 Rx Amoxicillin 875 mg PO BID 11/25/22 11/25/22 History Calcium Carb-Vit D 500Mg-5Mcg 1 tab PO DAILY 11/25/22 11/25/22 History [Oscal 500+D 5 Mcg (200 Iu)] Cetirizine HCl [Zyrtec] 10 mg PO DAILY 11/25/22 11/25/22 History Chlorhexidine Gluconate [Peridex] 15 ml PO PC-BID 11/25/22 11/25/22 History Ibuprofen [Motrin] 600 mg PO Q6H PRN 11/25/22 11/25/22 History Allergies Allergy/AdvReac Type Severity Reaction Status Date / Time [place]-GIR-CfE Reductase Allergy Unknown Verified 11/25/22 06:27 Inhibitor morphine AdvReac Unknown Verified 11/25/22 06:27 Physical Examination - Vital Signs Vital Signs: Vital Signs Temp Pulse Pulse Resp BP BP Pulse Ox 11/25/22 15:00 99.5 F 80 20 113/60 95 11/25/22 07:26 86 16 96/46 96 11/25/22 07:00 98.7 F 78 16 116/56 99 11/25/22 05:20 75 16 102/48 95 11/25/22 02:13 70 18 109/58 96 11/25/22 01:12 97.9 F 73 18 106/52 90 L Intake and Output 11/25/22 11/25/22 11/25/22 06:59 14:59 22:59 Output Total 400 Balance -400 Output: Urine 400 Other: Weight 99.79 kg Patient is an elderly female, who appears to be in [id number] distress because of episodic pain in her dental extraction region. Patient is alert awake and fairly well oriented. Patient states it is December and the year is . She knows that she is in [facility] in [facility]. When I entered the room and started talking, patient was completely talking gibberish, nonsensical speech. However as the time went on while examining, her mentation and speech functions improved. She has some word finding difficulty at times. Speech and language functions are normal. Patient was able to name all 4/4 objects presented and also can repeat very well. No aphasia or dysarthria during later part of examination. Attention, concentration and fund of knowledge is adequate. On cranial nerve examination, pupils are equal, round and reacting to light, visual springer reveal right homonymous hemianopia noticed on confrontation. On repeat testing, it appears patient has right visual neglect, but visual field deficit in the right lower quadrant. Extraocular muscles are intact with no nystagmus. on my examination, it appears patient has slight flattening of the right nasolabial fold, although patient's daughter states it is her baseline. Face is symmetric, tongue protrudes to the midline. Palatal elevation and sensation normal, hearing and shoulder shrug normal, facial sensation normal. On muscle strength testing, there is no pronator drift and the strength is normal in arms and legs distally and proximally. Deep tendon reflexes are symm1 all over and plantars downgoing bilaterally.ensory to touch is equal with no neglect on double simultaneous stimulation. Cerebellar function showed no ataxia for movnan-ot-ahvg testing, although she is slightly tremulous . No dysdiadochokinesia. No ataxia for lfqj-rj-evmm testing on either side. Tone and bulk of muscles normal. no myoclonic jerks. Gait deferred.. On general examination, there is no carotid bruit or murmur, S1-S2 audible. Chest is clear on consultation. Abdomen is soft nontender. No organomegaly, harshad wel sounds present. Peripheral pulses are present. No edema. Results - Laboratory Findings CBC and BMP: 11/25/22 01:25 11/26/22 05:29 Abnormal Lab Findings: Abnormal Labs 11/25/22 11/25/22 11/25/22 01:25 01:25 03:50 RBC 3.70 L Lymphocytes # 0.8 L Chloride Carbon Dioxide 18 L BUN 54 H Creatinine 3.14 H Glucose 165 H POC Glucose (mg/dL) Calcium 7.6 L Total Protein 5.7 L Albumin 3.2 L Urine Appearance Cloudy H Urine Protein 1+ H Urine Glucose (UA) Trace H Urine Nitrite Positive H Ur Leukocyte Esterase Large H Urine WBC 92 H Urine WBC Clumps Many H Urine Bacteria Many H 11/25/22 11/25/22 12:51 15:09 RBC Lymphocytes # Chloride 111 H Carbon Dioxide 18 L BUN 50 H Creatinine 2.84 H Glucose 137 H POC Glucose (mg/dL) 161 H Calcium 7.0 L Total Protein Albumin Urine Appearance Urine Protein Urine Glucose (UA) Urine Nitrite Ur Leukocyte Esterase Urine WBC Urine WBC Clumps Urine Bacteria Assessment and Plan Assessment: * Status post fall, due to lowering herself because of severe generalized weakness from decreased nutritional intake, decreased appetite since dental extraction on 11/16/2022. * Episode of expressive aphasia, and right visual field deficit, rule out CVA. * Acute dental pain, status post 2 teeth extraction. * Acute kidney injury likely prerenal. * Acute UTI, patient on ceftriaxone 1 g every 24 hours. * Diabetes * Hypertension * History of migraines Plan: * Patient will undergo stroke/TIA workup. * MRI of the brain without contrast, evaluate for acute CVA * 2-D echo with bubble study, rule out PFO or other embolic source.. * CTA head and neck from 02/23/2022 revealed no significant carotid bifurcation stenosis. No sizable intracranial aneurysm or vascular malformation. No need to repeat CTA. * Check EEG rule out epileptiform activity. * Fasting a.m. lipid panel. Continue Lipitor 80 mg daily. * Hemoglobin A1c * B12, folate * Blood pressure seems to be well controlled. * Close neuro checks. * Continue aspirin 81 mg daily for now. * If the dental pain persist, may benefit from Trileptal. * Telemetry monitoring rule out any arrhythmia * DVT prophylaxis: Lovenox 40 mg daily. * Neurology will continue to follow. Thank you for the consult.
[2022-11-26] MEDS ORDERED: ENOXAPARIN 30 MG/0.3 ML SYRINGE SQ SCH (10:15)
--- NOTE | 2022-11-26 10:51 | MR ---
EXAMINATION TYPE: MR brain wo con DATE OF EXAM: 11/26/2022 COMPARISON: NONE HISTORY: Speech difficulty, visual field loss, weakness. TECHNIQUE: T1-weighted sagittal, T2, FLAIR, and diffusion axial, and T2 coronal coronal views of the brain are submitted. FINDINGS: There is no evidence of acute ischemia. The ventricles, basal cisterns, and sulci overlying the conv exities are consistent with the patient's age. A minimal areas of abnormal signal in the white matte r are compatible with remote white matter ischemia. There is no mass effect. Craniocervical junction maintained. Signs of chronic sinusitis and bilateral mastoiditis. There is hy perostosis of the calvarium. IMPRESSION: 1. No acute intracranial process. 2. Chronic sinusitis and bilateral mastoid sinus.
--- NOTE | 2022-11-26 12:33 | P.NPCON ---
History of Present Illness - Reason for Consult acute renal failure, chronic renal failure - History of Present Illness Reason for consultation: Acute kidney injury and chronic kidney disease History of present illness: Patient is a 72-year-old female seen in renal consultation for acute kidney injury on chronic kidney disease. Patient's creatinine in February 2022 was in the range of 1.09-1.7. This admission and was elevated at 3.14 and is 2.4 today. Patient does not follow with nephrology outpatient. She is currently receiving IV fluids. Patient has history of diabetes. Patient is a poor hist orian. She denies any vomiting or diarrhea. She is being treated for UTI. Urine cultures positive for gram-negative bacilli. Patient was taking losartan at home which is currently held. I also see Motrin in her home medication list however it is unclear how often she's been taking it. Blood pressure stable. She has been voiding. She has an external catheter. No edema. Patient did have a fever as high as 101.4F this admission. She is on room air. Patient states she did have teeth pulled recently saw her oral intake has been decreased the last few days. Patient was found to be weak and was sent to the hospital by family. Vital signs are stable. General: No acute distress. HEENT: Head exam is unremarkable. LUNGS: No audible rhonchi or wheezes. HEART: Rate and Rhythm are regular. ABDOMEN: Nontender. EXTREMITITES: No edema. Past Medical History Past Medical History: Cancer, Diabetes Mellitus, Hyperlipidemia, Hypertension Additional Past Medical History / Comment(s): Uterine Cancer, Former Smoker (Quit 1983) History of Any Multi-Drug Resistant Organisms: None Reported Past Surgical History: Appendectomy, Cholecystectomy, Hysterectomy Past Anesthesia/Blood Transfusion Reactions: Postoperative Nausea & Vomiting (PONV) Past Psychological History: No Psychological Hx Reported Smoking Status: Former smoker Past Alcohol Use History: None Reported Past Drug Use History: None Reported Medications and Allergies Home Medications Medication Instructions Recorded Confirmed Type Aspirin EC [Ecotrin Low Dose] 81 mg PO DAILY 02/22/22 11/25/22 History Atorvastatin [Lipitor] 80 mg PO HS 02/22/22 11/25/22 History Ergocalciferol [Vitamin D2 (1250 1,250 mcg PO Q30D 02/22/22 11/25/22 History Mcg = 41169 Iu)] Glimepiride [Amaryl] 4 mg PO BID 02/22/22 11/25/22 History Losartan [Cozaar] 25 mg PO DAILY 02/22/22 11/25/22 History atenoloL 100 mg PO DAILY 02/22/22 11/25/22 History metFORMIN HCL 1,000 mg PO BID 02/22/22 11/25/22 History Butalb/APAP/Caff 50-325-40Mg 1 tab PO Q4H PRN #30 tablet 02/24/22 11/25/22 Rx [Fioricet 50-325-40] hydrALAZINE HCL [Apresoline] 25 mg PO QID PRN #360 tab 02/24/22 11/25/22 Rx Amoxicillin 875 mg PO BID 11/25/22 11/25/22 History Calcium Carb-Vit D 500Mg-5Mcg 1 tab PO DAILY 11/25/22 11/25/22 History [Oscal 500+D 5 Mcg (200 Iu)] Cetirizine HCl [Zyrtec] 10 mg PO DAILY 11/25/22 11/25/22 History Chlorhexidine Gluconate [Peridex] 15 ml PO PC-BID 11/25/22 11/25/22 History Ibuprofen [Motrin] 600 mg PO Q6H PRN 11/25/22 11/25/22 History Allergies Allergy/AdvReac Type Severity Reaction Status Date / Time [id number] Reductase Allergy Unknown Verified 11/25/22 06:27 Inhibitor morphine AdvReac Unknown Verified 11/25/22 06:27 Physical Exam Vitals: Vital Signs Temp Pulse Pulse Resp BP Pulse Ox 11/26/22 07:54 101.4 F H 88 18 135/79 96 11/26/22 02:59 98.6 F 79 15 119/64 98 11/26/22 02:58 79 80 15 11/25/22 21:46 79 80 15 11/25/22 20:00 99.9 F H 86 15 115/85 97 11/25/22 15:00 99.5 F 80 20 113/60 95 Intake and Output 11/25/22 11/26/22 11/26/22 22:59 06:59 14:59 Output Total 400 200 Balance -400 -200 Output: Urine 400 200 Other: Voiding Method Incontinent Incontinent Incontinent External Catheter External Catheter External Catheter Results - Lab Results Most recent lab results Calcium 7.1 mg/dL (8.7-10.3) L 11/26/22 05:29 11/25/22 01:25 11/26/22 05:29 Assessment and Plan Plan: Assessment: 1. Acute kidney injury secondary to vasomotor nephropathy from hypovolemia and further worsened with the use of losartan. Creatinine 3.14 on admission and is 2.4 today. 2. Rule out chronic kidney disease. Creatinine in the range of 1.09-1.7 in February 2022. 3. Gram-negative UTI on antibiotics. 4. Diabetes mellitus. 5. Benign hypertension. Stable. 6. Status post fall and expressive aphasia. Neurology following. MRI showed no acute process. Plan: Maintain IV fluids. Continue to hold anti-hypertensives. Encourage oral intake. Follow-up echocardiogram. Follow-up cultures. Check renal ultrasound. Continue to monitor renal function and urine output. Thank you for the consultation. I will continue to follow the patient with you during her hospital stay.
[2022-11-26 12:52] LABS: Glucose,Whole Blood 68 mg/dL (70-110)
[2022-11-26] MEDS: CYANOCOBALAMIN 500 MCG TAB PO SCH (13:06)
[2022-11-26] MEDS: ONDANSETRON 4 MG/2 ML VIAL IVP PRN ×2 (13:16→21:57)
[2022-11-26 13:19] LABS: Glucose,Whole Blood 66 mg/dL (70-110)
--- NOTE | 2022-11-26 13:38 | EEG ---
DATE OF SERVICE: 11/26/2022 ELECTROENCEPHALOGRAM REPORT PREAMBLE: This is a 72-year-old female with episode of altered mental status and speech difficulty. Rule out seizure versus encephalopathy. EEG FINDINGS: This is a 21-channel digital EEG recorded with video component, utilizing 10/20 international system with referential and bipolar montages. Background consists of moderately well-developed and regulated, moderate amplitude of 5 to 6 hertz generalized theta activity seen in bihemispheric region. Background does not seem to be reactive to eye opening or closing. Photic driving response was not seen. Different stages of sleep were not seen. No focal or generalized epileptiform activity was seen. EKG channel showed no obvious arrhythmia. IMPRESSION: This is an abnormal EEG due to background slowing of moderate degree. This is suggestive of generalized cerebral dysfunction as can be seen with toxic metabolic encephalopathy or related to diffuse structural brain abnormality. Clinical correlation is recommended. No epileptiform activity was seen. MMODL / IJN: [id number] / MTDD
[2022-11-26 13:48] LABS: Glucose,Whole Blood 180 mg/dL (70-110)
--- NOTE | 2022-11-26 14:49 | US ---
EXAMINATION TYPE: US kidneys/renal and bladder DATE OF EXAM: 11/26/2022 Exam done portable COMPARISON: US 2013 CLINICAL INDICATION: Female, 72 years old with history of olu; EXAM MEASUREMENTS: Right Kidney: 9.1 x 5.1 x 5.1 cm Left Kidney: 10.7 x 4.6 x 4.8 cm Difficult and limited study due to morbidly obese patient Right Kidney: limited visualization due to patient laying on right side and unable to roll Left Kidney: wnl Bladder: wnl Bilateral Jets seen: no IMPRESSION: 1. Bilateral cortical thinning but no definite hydronephrosis or nephrolithiasis. There is some limit ation to the right kidney due to overlying bowel gas.
--- NOTE | 2022-11-26 15:34 | P.PN ---
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 Currently with expressive aphasia, unable to obtain full details. Shakes head yes to mouth pain and no to chest pain, or shortness of breath. Denies nausea vomiting or diarrhea. UA positive, culture pending with antib iotics of ceftriaxone initiated. Received Toradol in the ER prior to labs reflecting creatinine of 3.14 and GFR 14. Maintained on IV fluid hydration. 11/26/2022 continues on IV fluid hydration, ceftriaxone. Renal function improving, BUN 40.6, creatinine 2.4. Continues to have expressive aphasia. Pain significantly improved, denies tooth/mouth pain this morning. Shakes head no to nausea vomiting or diarrhea. Denies abdominal pain. No bowel movement. Denies chest pain or shortness of breath. T-max 101.4, CBC ordered. Evaluated by neurology and nephrology with recommendations noted and appreciated. Neuro workup in progress. Objective - Vital Signs Vital signs: Vital Signs Temp 101.4 F H 11/26/22 07:54 Pulse 88 11/26/22 07:54 Resp 18 11/26/22 07:54 BP 135/79 11/26/22 07:54 Pulse Ox 96 11/26/22 07:54 FiO2 Intake & Output 11/25/22 11/26/22 11/26/22 18:59 06:59 18:59 Output Total 400 600 Balance -400 -600 Output: Urine 400 600 Other: Voiding Method Incontinent Incontinent Incontinent External Catheter External Catheter External Catheter - Exam PHYSICAL EXAM: VITAL SIGNS: [As above] GENERAL: Sitting up in bed, alert to person, expressive aphasia, demonstrating with hands to mouth-mouth pain. HEENT: Conjunctivae normal. eyes normal. NECK: Supple, No JVD. No thyroid enlargement. No LNs CARDIOVASCULAR: S1, S2 regular..No murmur RESPIRATION: Unlabored, equal air entry .clear to auscultation with bilateral bases diminished. ABDOMEN: Soft, nondistended, nontender . No guarding. no masses palpable. No ascites, No hepatosplenomegaly.Bowel sounds heard. LEGS: Trace edema. no calf tenderness, positive DP pulses. NERVOUS SYSTEM: Limited exam;Appears alert and oriented to person, calm, expressive aphasia present. Follows simple commands Skin: Warm and dry, no rash. - Labs CBC & Chem 7: 11/25/22 01:25 11/26/22 05:29 Labs: Abnormal Lab Results - Last 24 Hours (Table) 11/25/22 11/25/22 11/25/22 Range/Units 15:09 17:39 21:07 Chloride 111 H (98-107) mmol/L Carbon Dioxide 18 L (22-30) mmol/L BUN 50 H (7-17) mg/dL Creatinine 2.84 H (0.52-1.04) mg/dL Est GFR (CKD-EPI) (>=60) Glucose 137 H (74-99) mg/dL POC Glucose (mg/dL) 248 H 170 H (70-110) mg/dL Hemoglobin A1c (<=6.0) % Calcium 7.0 L (8.4-10.2) mg/dL HDL Cholesterol (40.00-60.00) mg/dL Vitamin B12 (200.0-944.0) pg/mL 11/26/22 11/26/22 11/26/22 Range/Units 05:29 05:29 12:50 Chloride 112 H (98-107) mmol/L Carbon Dioxide 19.0 L (22-30) mmol/L BUN 40.6 H (7-17) mg/dL Creatinine 2.4 H (0.52-1.04) mg/dL Est GFR (CKD-EPI) 21 L (>=60) Glucose (74-99) mg/dL POC Glucose (mg/dL) 68 L (70-110) mg/dL Hemoglobin A1c 6.7 H (<=6.0) % Calcium 7.1 L (8.4-10.2) mg/dL HDL Cholesterol 29.10 L (40.00-60.00) mg/dL Vitamin B12 <150.0 L (200.0-944.0) pg/mL 11/26/22 Range/Units 13:18 Chloride (98-107) mmol/L Carbon Dioxide (22-30) mmol/L BUN (7-17) mg/dL Creatinine (0.52-1.04) mg/dL Est GFR (CKD-EPI) (>=60) Glucose (74-99) mg/dL POC Glucose (mg/dL) 66 L (70-110) mg/dL Hemoglobin A1c (<=6.0) % Calcium (8.4-10.2) mg/dL HDL Cholesterol (40.00-60.00) mg/dL Vitamin B12 (200.0-944.0) pg/mL Microbiology - Last 24 Hours (Table) 11/25/22 07:21 Urine Culture - Preliminary Urine,Catheterized Gram Neg Bacilli Assessment and Plan Assessment: Acute UTI, culture pending Acute Metabolic encephalopathy secondary to the above Acute renal failure possibly induced by decreased oral intake, medications-prior to inpatient, was on Cozaar, antibiotics CKD III, baseline creatinine 1.1 to 1.7. Expressive aphasia, in a patient with history of transient expressive aphasia, previously induced by Topamax which was discontinued. 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 MRI brain with and without ,at that time suggestive of benign hyperostosis frontalis and no mass or stroke. Low suspicion for malignancy reported as per oncology evaluation during that inpatient visit, with multiple further studies ordered to rule out potential malignant cause, including bone survey which reported no focal bone destruction no acute bone abnormality, osteoporosis and osteomalacia type compression fractures in the thoracic and lumbar spine. Reports recent extraction of 2 teeth left molars with oral surgeon, Dr. Porras. Diabetes mellitus type 2, hemoglobin A1c 6.7. Hypertension Hyperlipidemia Morbid obesity, BMI 42 Plan: Continue on current medication regime ,monitoring and symptomatic treatment. Febrile, blood cultures ordered, CBC added on to a.m. labs/pending. Maintain IV fluid hydration and IV antibiotics .cultures finalizing. Diet intake currently not charted, no change in diabetic med regimen at this time. EEG, Echo/bubble study, brain MRI, renal ultrasound pending. Speech therapy consulted in regards to expressive aphasia. The impression and plan of care has been dictated as directed. : I performed a history and examination of this patient, discussed the same with the dictator. I agree with the dictator's note ,documented as a scribe. Any additional findings or plans will be noted.
--- NOTE | 2022-11-26 15:48 | P.PN ---
Progress Note - Text Progress Note Date: 11/26/22 S:The patient known to my practice. Family called the office due to patient's inability to make her follow-up appointment for dry socket treatment of the lower left. Patient had extractions 8 days ago and had been seen 3 days ago and diagnosed with dry socket on the lower left. The next day the patient was doing better and missed her appointment for today. o: Patient resting in bed difficulty speaking. Reported pain on the left when asked. No swelling or redness noted able open mouth well. Changed eugenol dressing on tooth extraction site 17 without difficulty. A: Alveolar osteitis lower left P: Tolerated packing change well anticipate 2-3 days of pain relief recommend follow-up on Tuesday as outpatient.
[2022-11-26 16:26] LABS: HCT 36.6 % (34.0-46.0); HGB 11.4 gm/dL (11.4-16.0); MCH 30.9 pg (25.0-35.0); MCHC 31.2 g/dL (31.0-37.0); Mean Platelet Volume 9.5; Platelet Count 170 k/uL (150-450); RDW 13.2 % (11.5-15.5); WBC 5.4 k/uL (3.8-10.6)
[2022-11-26 17:30] LABS: Glucose,Whole Blood 87 mg/dL (70-110)
[2022-11-26 20:38] LABS: Glucose,Whole Blood 58 mg/dL (70-110)
--- NOTE | 2022-11-26 21:02 | P.PN ---
Subjective Progress Note Date: 11/26/22 Patient was seen for a follow-up. Patient is laying comfortably in the bed. She is continues to have some stuttering, speech difficulty, but no new neurological symptoms. Continues to be encephalopathic. Objective - Vital Signs Vital signs: Vital Signs Temp 99.1 F 11/26/22 19:07 Pulse 82 11/26/22 19:07 Resp 18 11/26/22 19:07 BP 147/78 11/26/22 19:07 Pulse Ox 98 11/26/22 19:07 FiO2 Intake & Output 11/26/22 11/26/22 11/27/22 06:59 18:59 06:59 Output Total 600 Balance -600 Output: Urine 600 Other: Voiding Method Incontinent Incontinent External Catheter External Catheter - Exam Patient was asleep. On waking up, patient again had some speech difficulty, which improved. Examination otherwise unchanged. - Labs CBC & Chem 7: 11/26/22 15:52 11/26/22 05:29 Labs: Abnormal Lab Results - Last 24 Hours (Table) 11/25/22 11/26/22 11/26/22 Range/Units 21:07 05:29 05:29 RBC (3.80-5.40) m/uL Chloride 112 H (96-109) mmol/L Carbon Dioxide 19.0 L (21.6-31.8) mmol/L BUN 40.6 H (9.0-27.0) mg/dL Creatinine 2.4 H (0.6-1.5) mg/dL Est GFR (CKD-EPI) 21 L (>=60) POC Glucose (mg/dL) 170 H (70-110) mg/dL Hemoglobin A1c 6.7 H (<=6.0) % Calcium 7.1 L (8.7-10.3) mg/dL HDL Cholesterol 29.10 L (40.00-60.00) mg/dL Vitamin B12 <150.0 L (200.0-944.0) pg/mL 11/26/22 11/26/22 11/26/22 Range/Units 12:50 13:18 13:47 RBC (3.80-5.40) m/uL Chloride (96-109) mmol/L Carbon Dioxide (21.6-31.8) mmol/L BUN (9.0-27.0) mg/dL Creatinine (0.6-1.5) mg/dL Est GFR (CKD-EPI) (>=60) POC Glucose (mg/dL) 68 L 66 L 180 H (70-110) mg/dL Hemoglobin A1c (<=6.0) % Calcium (8.7-10.3) mg/dL HDL Cholesterol (40.00-60.00) mg/dL Vitamin B12 (200.0-944.0) pg/mL 11/26/22 11/26/22 Range/Units 15:52 20:28 RBC 3.70 L (3.80-5.40) m/uL Chloride (96-109) mmol/L Carbon Dioxide (21.6-31.8) mmol/L BUN (9.0-27.0) mg/dL Creatinine (0.6-1.5) mg/dL Est GFR (CKD-EPI) (>=60) POC Glucose (mg/dL) 58 L (70-110) mg/dL Hemoglobin A1c (<=6.0) % Calcium (8.7-10.3) mg/dL HDL Cholesterol (40.00-60.00) mg/dL Vitamin B12 (200.0-944.0) pg/mL Microbiology - Last 24 Hours (Table) 11/25/22 07:21 Urine Culture - Preliminary Urine,Catheterized Gram Neg Bacilli Assessment and Plan Assessment: * Status post fall, due to lowering herself because of severe generalized weakness from decreased nutritional intake, decreased appetite since dental extraction on 11/16/2022. * Episode of expressive aphasia, and right visual field deficit, rule out CVA. * Acute dental pain, status post 2 teeth extraction. * Acute kidney injury likely prerenal. * Acute UTI, patient on ceftriaxone 1 g every 24 hours. * Diabetes * Hypertension * History of migraines Plan: * Patient will undergo stroke/TIA workup. * MRI of the brain without contrast revealed no acute intracranial process. Chronic sinusitis and bilateral mastoid sinus. I personally reviewed MRI, I agree with the findings. Recommend course of antibiotic or ENT consult. * 2-D echo with bubble study completed, results pending. * CTA head and neck from 02/23/2022 revealed no significant carotid bifurcation stenosis. No sizable intracranial aneurysm or vascular malformation. No need to repeat CTA. * EEG was abnormal due to background slowing of moderate degree, suggestive of generalized cerebral dysfunction as can be seen with toxic metabolic encephalopathy or related to diffuse structural brain abnormality. Clinical correlation recommended. No epileptiform activity was seen. * Fasting a.m. lipid panel with cholesterol 122, LDL 65, HDL 29, triglycerides 137. Continue Lipitor 80 mg daily. * Hemoglobin A1c 6.7, diabetes fairly well controlled * B12 < 150, folate 11.9. Patient has severe B12 deficiency. Patient will be started on B12 injection. * Blood pressure seems to be well controlled. * Close neuro checks. * Continue aspirin 81 mg daily for now. * Patient has severe dental pain, almost looks like trigeminal neuralgia. Start Trileptal 150 mg twice a day. Patient recommended to stop medication if she notices any rash. Once the dental condition stabilizes, then Trileptal may be discontinued. May need maxillofacial surgery consultation for persistent dental pain, or perhaps follow up with dentist as soon as possible. * Telemetry monitoring rule out any arrhythmia * DVT prophylaxis: Lovenox 40 mg daily.
[2022-11-26] MEDS: OXcarbazepine 150 MG TAB PO SCH (21:52)
[2022-11-26] MEDS: ATORVASTATIN 80 MG TAB PO SCH (21:52)
[2022-11-26] MEDS: SENNOSIDES-DOCUSATE SODIUM 1 EACH TAB PO SCH (21:52)
[2022-11-26 22:01] LABS: Glucose,Whole Blood 96 mg/dL (70-110)
--- NOTE | 2022-11-27 00:52 | P.PN ---
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 Currently with expressive aphasia, unable to obtain full details. Shakes head yes to mouth pain and no to chest pain, or shortness of breath. Denies nausea vomiting or diarrhea. UA positive, culture pending with antibiotics of ceftriaxone initiated. Received Toradol in the ER prior to labs reflecting creatinine of 3.14 and GFR 14. Maintained on IV fluid hydration. 11/26/2022 continues on IV fluid hydration, ceftriaxone. Renal function improving, BUN 40.6, creatinine 2.4. Continues to have expressive aphasia. Pain significantly improved, denies tooth/mouth pain this morning. Shakes head no to nausea vomiting or diarrhea. Denies abdominal pain. No bowel movement. Denies chest pain or shortness of breath. T-max 101.4, CBC ordered. Evaluated by neurology and nephrology with recommendations noted and appreciated. Neuro workup in progress. 11/27/22 : Patient seen and evaluated bedside, patient continued to have facial pain pain very consistent with trigeminal neuralgia complains of sharp stabbing pain. Blood work reviewed hematology review WBC within normal limits hemoglobin 11.6 hematocrit 36 platelet 188. Serum chemistry sodium 144 potassium 4.4 BUN 24 creatinine 1.4 magnesium is 0.8 critically low and that is been replaced Objective - Vital Signs Vital signs: Vital Signs Temp 99.1 F 11/26/22 19:07 Pulse 82 11/26/22 19:07 Resp 18 11/26/22 19:07 BP 147/78 11/26/22 19:07 Pulse Ox 98 11/26/22 19:07 FiO2 Intake & Output 11/26/22 11/26/22 11/27/22 06:59 18:59 06:59 Output Total 600 Balance -600 Output: Urine 600 Other: Voiding Method Incontinent Incontinent External Catheter External Catheter - Exam PHYSICAL EXAMINATION: GENERAL: The patient is alert and oriented x3, appears in distress secondary to facial pain. HEENT: Pupils are round and equally reacting to light. EOMI. CARDIOVASCULAR: S1 and S2 present. No murmurs, rubs, or gallops. PULMONARY: Chest is clear to auscultation, no wheezing or crackles. ABDOMEN: Soft, nontender, nondistended, normoactive bowel sounds. No palpable organomegaly. MUSCULOSKELETAL: No joint swelling or deformity. EXTREMITIES: No cyanosis, clubbing, or pedal edema. NEUROLOGICAL: Expressive aphasia, motor strength is 5 over 5 bilateral upper and lower extremity. SKIN: No rashes. - Labs CBC & Chem 7: 11/27/22 04:49 11/27/22 04:49 Labs: Abnormal Lab Results - Last 24 Hours (Table) 11/26/22 11/26/22 11/26/22 Range/Units 05:29 05:29 12:50 RBC (3.80-5.40) m/uL Chloride 112 H (96-109) mmol/L Carbon Dioxide 19.0 L (21.6-31.8) mmol/L BUN 40.6 H (9.0-27.0) mg/dL Creatinine 2.4 H (0.6-1.5) mg/dL Est GFR (CKD-EPI) 21 L (>=60) POC Glucose (mg/dL) 68 L (70-110) mg/dL Hemoglobin A1c 6.7 H (<=6.0) % Calcium 7.1 L (8.7-10.3) mg/dL HDL Cholesterol 29.10 L (40.00-60.00) mg/dL Vitamin B12 <150.0 L (200.0-944.0) pg/mL 11/26/22 11/26/22 11/26/22 Range/Units 13:18 13:47 15:52 RBC 3.70 L (3.80-5.40) m/uL Chloride (96-109) mmol/L Carbon Dioxide (21.6-31.8) mmol/L BUN (9.0-27.0) mg/dL Creatinine (0.6-1.5) mg/dL Est GFR (CKD-EPI) (>=60) POC Glucose (mg/dL) 66 L 180 H (70-110) mg/dL Hemoglobin A1c (<=6.0) % Calcium (8.7-10.3) mg/dL HDL Cholesterol (40.00-60.00) mg/dL Vitamin B12 (200.0-944.0) pg/mL 11/26/22 Range/Units 20:28 RBC (3.80-5.40) m/uL Chloride (96-109) mmol/L Carbon Dioxide (21.6-31.8) mmol/L BUN (9.0-27.0) mg/dL Creatinine (0.6-1.5) mg/dL Est GFR (CKD-EPI) (>=60) POC Glucose (mg/dL) 58 L (70-110) mg/dL Hemoglobin A1c (<=6.0) % Calcium (8.7-10.3) mg/dL HDL Cholesterol (40.00-60.00) mg/dL Vitamin B12 (200.0-944.0) pg/mL Microbiology - Last 24 Hours (Table) 11/25/22 07:21 Urine Culture - Preliminary Urine,Catheterized Gram Neg Bacilli Assessment and Plan Assessment: Assessment and plan * Expressive aphasia likely secondary to trigeminal neuralgia * Acute metabolic encephalopathy secondary to renal failure * Urinary tract infection * Mastoid sinusitis * Acute renal failure with chronic kidney disease stage III * History of acute on chronic bilateral frontal cephalalgia * Diabetes mellitus type 2 * Hypertension * Hyperlipidemia * Morbid obesity * Consultation obtained from oral surgery, infectious disease, neurology * In regards to expressive aphasia MRI brain negative for CVA, EEG completedshows abnormal background moderate degree of generalized cerebral dysfunction consistent with toxic metabolic encephalopathy, CTA head and neck negative for significant stenosis. Patient seen by neurology recommended to continue aspirin * In regards to diabetes mellitus HbA1c 6.7 * In regards to dental pain concern for trigeminal neuralgia patient started on Trileptal by neurology * In regards to mastoiditis continue clindamycin infectious disease consulted and Rocephin transition to IV Unasyn * In regards to renal failure patient followed up by nephrology continue to monitor renal profile
[2022-11-27 02:30] LABS: Glucose,Whole Blood 130 mg/dL (70-110)
[2022-11-27] MEDS: SODIUM CHLORIDE 0.9% 1,000 ML IV SCH ×3 (04:14→23:51)
[2022-11-27 06:15] LABS: Glucose,Whole Blood 106 mg/dL (70-110)
[2022-11-27] MEDS: INSULIN DETEMIR (LEVEMIR) 100 UNIT/ML SYR SQ SCH (06:45)
[2022-11-27] MEDS: INSULIN ASPART (NovoLOG) 100 UNIT/ML VIAL SQ SCH ×4 (06:46→21:25)
[2022-11-27] MEDS ORDERED: ENOXAPARIN 40 MG/0.4 ML SYRINGE SQ SCH (09:00)
[2022-11-27 09:59] LABS: HCT 36.1 % (37.2-46.3); HGB 11.6 d/dL (12.0-15.0); MCH 31.6 pg (27.0-32.0); MCHC 32.1 d/dL (32.0-37.0); MCV 98.4 FL (80.0-97.0); Mean Platelet Volume 12.3 FL (9.5-12.2); NRBC Per 100 WBC 0 X 10*3/uL (0.00-0.01); Platelet Count 188 X 10*3/uL (140-440); RBC 3.67 X 10*6/uL (4.10-5.20); RDW 13.4 % (11.5-14.5); WBC 6.13 X 10*3/uL (4.50-10.00)
[2022-11-27] MEDS: CHLORHEXIDINE GLUCONATE 15 ML CUP MUCOUS MEM SCH ×2 (09:59→19:49)
[2022-11-27] MEDS: HYDROmorphone 0.5 MG/0.5 ML SYRINGE IVP PRN ×3 (10:00→23:49)
[2022-11-27] MEDS: CLINDAMYCIN 150 MG CAP PO SCH ×3 (10:01→20:00)
[2022-11-27] MEDS: LORATADINE 10 MG TAB PO SCH (10:01)
[2022-11-27] MEDS: ASPIRIN 81 MG PO SCH (10:01)
[2022-11-27] MEDS: CYANOCOBALAMIN 500 MCG TAB PO SCH (10:01)
[2022-11-27] MEDS: atenoloL 50 MG TAB PO SCH (10:01)
[2022-11-27 10:03] LABS: BUN/Creat Ratio 17.64 Ratio (12.00-20.00); Blood Urea Nitrogen 24.7 mg/dL (9.0-27.0); Calcium 7.1 mg/dL (8.7-10.3); Carbon Dioxide 19.9 mmol/L (21.6-31.8); Chloride 112 mmol/L (96-109); Glucose 117 mg/dL (70-110); Potassium 4.4 mmol/L (3.5-5.5); Sodium 144 mmol/L (135-145)
[2022-11-27] MEDS: OXcarbazepine 150 MG TAB PO SCH ×2 (10:05→20:00)
[2022-11-27 10:14] LABS: Magnesium 0.8 mg/dL (1.5-2.4)
[2022-11-27 10:26] VITALS: BMI 41.5
--- NOTE | 2022-11-27 10:53 | CA ---
Transthoracic Echo Report Name: Echo Walter Age: 72 Gender: F : 1950 Exam Date: 11/26/2022 12:18 Exam Location: [facility] Ht (in): 61 Wt (lb): 220 Ordering Physician: Sarika Al MD Attending/Referring Phys: Principal Engineer Nani Nicholas RDCS Procedure CPT: Indications: stroke/tia Cardiac Hx: Technical Quality: Fair Contrast 1: Total Dose (mL): Contrast 2: Total Dose (mL): MEASUREMENTS (Male / Female) Normal Values 2D ECHO LV Diastolic Diameter PLAX 5.7 cm 4.2 - 5.9 / 3.9 - 5.3 cm LV Systolic Diameter PLAX 3.6 cm IVS Diastolic Thickness 1.3 cm 0.6 - 1.0 / 0.6 - 0.9 cm LVPW Diastolic Thickness 1.3 cm 0.6 - 1.0 / 0.6 - 0.9 cm LV Relative Wall Thickness 0.5 RV Internal Dim ED PLAX 3.4 cm LA Systolic Diameter LX 3.5 cm 3.0 - 4.0 / 2.7 - 3.8 cm LV Diastolic Volume MOD 4C 120.0 cm??? LV Systolic Volume MOD 4C 53.0 cm??? LV Ejection Fraction MOD 4C 55.8 % LV Cardiac Index MOD 4C 2108.8 cm???/min???m??? LV Diastolic Length 4C 8.4 cm LV Systolic Length 4C 7.1 cm LV Diastolic Volume MOD 2C 55.2 cm??? LV Systolic Volume MOD 2C 22.1 cm??? LV Ejection Fraction MOD 2C 59.9 % LV Cardiac Index MOD 2C 1039.2 cm???/min???m??? LV Diastolic Length 2C 8.8 cm LV Systolic Length 2C 7.7 cm LA Volume 30.1 cm??? 18 - 58 / 22 - 52 cm??? LA Volume Index 14.2 cm???/m??? 16 - 28 cm???/m??? M-MODE Aortic Root Diameter MM 3.3 cm MV E Point Septal Separation 1.4 cm AV Cusp Separation MM 2.1 cm DOPPLER AV Peak Velocity 124.1 cm/s AV Peak Gradient 6.2 mmHg MV Area PHT 2.9 cm??? Mitral E Point Velocity 65.9 cm/s Mitral A Point Velocity 78.3 cm/s Mitral E to A Ratio 0.8 MV Deceleration Time 262.7 ms TR Peak Velocity 225.9 cm/s TR Peak Gradient 20.4 mmHg Right Ventricular Systolic Press 25.4 mmHg FINDINGS Left Ventricle Left ventricular ejection fraction is estimated at 55-60 %. Mild left ventricular dilatation. Mildly increased septal wall thickness. Moderately increased posterior wall thickness. Mildly increased left ventricular diastolic diameter. Right Ventricle Mild right ventricular dilatation. Right ventricular systolic pressure within normal limits. Right Atrium Normal right atrial size. Negative agitated saline bubble study for right to left shunt. Left Atrium Normal left atrial size. Mitral Valve Structurally normal mitral valve. No mitral stenosis, regurgitation or prolapse. Aortic Valve Trileaflet aortic valve. No aortic valve stenosis or regurgitation. Tricuspid Valve Structurally normal tricuspid valve. Trace to mild tricuspid regurgitation. Pulmonic Valve Structurally normal pulmonic valve. No pulmonic regurgitation. Pericardium No pericardial effusion. Aorta Normal size aortic root and proximal ascending aorta. CONCLUSIONS Normal LV systolic function Previewed by: Dr. Arnold Marie MD (Electronically Signed) Final Date: 27 November 2022 10:52
[2022-11-27] MEDS: MAGNESIUM SULFATE-D5W PMX 1 GM in DEXTROSE/WATER 1 100ML.BAG IVPB SCH ×4 (11:48→16:54)
--- NOTE | 2022-11-27 11:51 | P.PN ---
Subjective Patient is seen in follow for acute kidney injury. Renal function improving. Oral intake poor. Magnesium 0.8 today. Has been voiding. Hemodynamically stable. Vital signs are stable. General: No acute distress. HEENT: Head exam is unremarkable. LUNGS: No audible rhonchi or wheezes. HEART: Rate and Rhythm are regular. ABDOMEN: Soft, obese. EXTREMITITES: Trace edema. Objective - Vital Signs Vital signs: Vital Signs Temp 98.3 F 11/27/22 07:00 Pulse 60 11/27/22 07:00 Resp 16 11/27/22 07:00 BP 126/75 11/27/22 07:00 Pulse Ox 95 11/27/22 07:00 FiO2 Intake & Output 11/26/22 11/27/22 11/27/22 18:59 06:59 18:59 Output Total 700 Balance -700 Weight 99.79 kg Output: Urine 700 Other: Voiding Method Incontinent Incontinent External Catheter External Catheter - Labs CBC & Chem 7: 11/27/22 04:49 11/27/22 04:49 Labs: Abnormal Lab Results - Last 24 Hours (Table) 11/26/22 11/26/22 11/26/22 Range/Units 12:50 13:18 13:47 RBC (3.80-5.40) m/uL Hgb (12.0-15.0) d/dL Hct (37.2-46.3) % MCV (80.0-97.0) FL MPV (9.5-12.2) FL Chloride (96-109) mmol/L Carbon Dioxide (21.6-31.8) mmol/L Anion Gap (4.00-12.00) mmol/L Est GFR (CKD-EPI) (>=60) Glucose (70-110) mg/dL POC Glucose (mg/dL) 68 L 66 L 180 H (70-110) mg/dL Calcium (8.7-10.3) mg/dL Magnesium (1.5-2.4) mg/dL C-Reactive Protein (0.00-0.80) mg/dL Procalcitonin (0.02-0.09) ng/mL 11/26/22 11/26/22 11/27/22 Range/Units 15:52 20:28 02:28 RBC 3.70 L (3.80-5.40) m/uL Hgb (12.0-15.0) d/dL Hct (37.2-46.3) % MCV (80.0-97.0) FL MPV (9.5-12.2) FL Chloride (96-109) mmol/L Carbon Dioxide (21.6-31.8) mmol/L Anion Gap (4.00-12.00) mmol/L Est GFR (CKD-EPI) (>=60) Glucose (70-110) mg/dL POC Glucose (mg/dL) 58 L 130 H (70-110) mg/dL Calcium (8.7-10.3) mg/dL Magnesium (1.5-2.4) mg/dL C-Reactive Protein (0.00-0.80) mg/dL Procalcitonin (0.02-0.09) ng/mL 11/27/22 11/27/22 11/27/22 Range/Units 04:49 04:49 04:49 RBC 3.67 L (3.80-5.40) m/uL Hgb 11.6 L (12.0-15.0) d/dL Hct 36.1 L (37.2-46.3) % MCV 98.4 H (80.0-97.0) FL MPV 12.3 H (9.5-12.2) FL Chloride 112 H (96-109) mmol/L Carbon Dioxide 19.9 L (21.6-31.8) mmol/L Anion Gap 12.10 H (4.00-12.00) mmol/L Est GFR (CKD-EPI) 39 L (>=60) Glucose 117 H (70-110) mg/dL POC Glucose (mg/dL) (70-110) mg/dL Calcium 7.1 L (8.7-10.3) mg/dL Magnesium 0.8 H* (1.5-2.4) mg/dL C-Reactive Protein 2.90 H (0.00-0.80) mg/dL Procalcitonin 0.13 H (0.02-0.09) ng/mL Microbiology - Last 24 Hours (Table) 11/25/22 07:21 Urine Culture - Preliminary Urine,Catheterized Gram Neg Bacilli Assessment and Plan Plan: Assessment: 1. Acute kidney injury secondary to vasomotor nephropathy from hypovolemia and further worsened with the use of losartan. Creatinine 3.14 on admission and is 1.4 today. No hydronephrosis noted on kidney ultrasound. 2. Rule out chronic kidney disease. Creatinine in the range of 1.09-1.7 in February 2022. 3. Gram-negative UTI on antibiotics. 4. Diabetes mellitus. 5. Benign hypertension. Stable. 6. Status post fall and expressive aphasia. Neurology following. MRI showed no acute process. 7. Severe hypomagnesemia from poor intake. 8. Metabolic acidosis secondary to acute kidney injury and IV fluids. Plan: Maintain IV fluids. Encourage oral intake. Replace magnesium. 4 g IV magnesium sulfate today. Follow-up cultures. Preserved ejection fraction noted on echocardiogram. Continue to monitor renal function and urine output. Add oral bicarb.
[2022-11-27] MEDS: HYDROcodone/APAP 5-325MG 1 EACH TAB PO PRN ×2 (11:58→19:48)
[2022-11-27 12:20] LABS: Glucose,Whole Blood 141 mg/dL (70-110)
[2022-11-27] MEDS ORDERED: AMPICILLIN-SULBACTAM 3 GM in SODIUM CHLORIDE 0.9% 100 ML IVPB SCH (12:30)
[2022-11-27] MEDS: SODIUM BICARBONATE TAB 650 MG TAB PO SCH ×2 (12:59→19:50)
[2022-11-27 17:09] LABS: Glucose,Whole Blood 135 mg/dL (70-110)
[2022-11-27] MEDS: ATORVASTATIN 80 MG TAB PO SCH (19:48)
[2022-11-27] MEDS: SENNOSIDES-DOCUSATE SODIUM 1 EACH TAB PO SCH (19:50)
[2022-11-27] MEDS: NYSTATIN 100,000 UNIT/GM POWD 15 GM TOPICAL SCH (19:51)
[2022-11-27 21:23] LABS: Glucose,Whole Blood 152 mg/dL (70-110)
[2022-11-27] MEDS: AMPICILLIN-SULBACTAM 3 GM in SODIUM CHLORIDE 0.9% 100 ML IVPB SCH (23:50)
--- NOTE | 2022-11-28 00:03 | P.CONS ---
History of Present Illness - Reason for Consult Consult date: 11/27/22 Acute mastoiditis, urinary tract infection Requesting physician: Odette Armenta - Chief Complaint Weakness and dental pain x few days - History of Present Illness Patient is a 72-year-old female with a past medical history significant for uterine cancer Diabetes Mellitus, Hyperlipidemia, Hypertension , Patient presenting to the hospital 2 days ago for evaluation of weakness and dental pain apparently the patient recently did have extraction of 2 teeth to the lower jaw and apparently the patient has been following with the dentist in the outpatient setting and has been treated with oral amoxicillin and ibuprofen however the patient can complain of pain to the left lower jaw patient describing it to be more of a sharp pain 6-7 out of 10 no radiation also co mplaining of generalized weakness no headache or URI symptoms some nausea but no vomiting denies any chest pain shortness of breath or cough no abdominal pain or any diarrhea patient on presentation to hospital was afebrile but subsequently spiked a fever of 99.9 negative following and did have a fever of 101.4-100 yesterday and 100.3 degrees on right today patient was have not tachycardic hypotensive or hypoxic did have a normal white count did have elevated BUN and creatinine did show some improvement subsequently liver enzymes are normal CRP was elevated urine was positive patient did have a MRI of the brain no acute intracranial process chronic sinusitis and bilateral mastoid sinus patient however denies having any pain to the bilateral mastoid area or any difficulty hearing patient also have a ultrasound the kidney bilateral cortical thinning but not definite hydronephrosis or nephrolithiasis patient is currently on Rocephin infectious disease was consulted for UTI and mastoid disease and need for further antibiotic therapy Review of Systems Positive point and negatives has been mentioned in the HPI, complete review of systems was performed and all other systems are negative Past Medical History Past Medical History: Cancer, Diabetes Mellitus, Hyperlipidemia, Hypertension Additional Past Medical History / Comment(s): Uterine Cancer, Former Smoker (Quit 1983) History of Any Multi-Drug Resistant Organisms: None Reported Past Surgical History: Appendectomy, Cholecystectomy, Hysterectomy Past Anesthesia/Blood Transfusion Reactions: Postoperative Nausea & Vomiting (PONV) Past Psychological History: No Psychological Hx Reported Smoking Status: Former smoker Past Alcohol Use History: None Reported Past Drug Use History: None Reported Medications and Allergies Home Medications Medication Instructions Recorded Confirmed Type Aspirin EC [Ecotrin Low Dose] 81 mg PO DAILY 02/22/22 11/25/22 History Atorvastatin [Lipitor] 80 mg PO HS 02/22/22 11/25/22 History Ergocalciferol [Vitamin D2 (1250 1,250 mcg PO Q30D 02/22/22 11/25/22 History Mcg = 69863 Iu)] Glimepiride [Amaryl] 4 mg PO BID 02/22/22 11/25/22 History Losartan [Cozaar] 25 mg PO DAILY 02/22/22 11/25/22 History atenoloL 100 mg PO DAILY 02/22/22 11/25/22 History metFORMIN HCL 1,000 mg PO BID 02/22/22 11/25/22 History Butalb/APAP/Caff 50-325-40Mg 1 tab PO Q4H PRN #30 tablet 02/24/22 11/25/22 Rx [Fioricet 50-325-40] hydrALAZINE HCL [Apresoline] 25 mg PO QID PRN #360 tab 02/24/22 11/25/22 Rx Amoxicillin 875 mg PO BID 11/25/22 11/25/22 History Calcium Carb-Vit D 500Mg-5Mcg 1 tab PO DAILY 11/25/22 11/25/22 History [Oscal 500+D 5 Mcg (200 Iu)] Cetirizine HCl [Zyrtec] 10 mg PO DAILY 11/25/22 11/25/22 History Chlorhexidine Gluconate [Peridex] 15 ml PO PC-BID 11/25/22 11/25/22 History Ibuprofen [Motrin] 600 mg PO Q6H PRN 11/25/22 11/25/22 History Allergies Allergy/AdvReac Type Severity Reaction Status Date / Time [id number] Reductase Allergy Unknown Verified 11/25/22 06:27 Inhibitor morphine AdvReac Unknown Verified 11/25/22 06:27 Physical Exam Vitals: Vital Signs Temp Pulse Resp BP Pulse Ox 11/27/22 07:00 98.3 F 60 16 126/75 95 11/27/22 02:26 100.3 F H 74 21 140/72 97 11/26/22 19:07 99.1 F 82 18 147/78 98 11/26/22 15:00 98.1 F 68 18 138/83 96 Intake and Output 11/26/22 11/27/2211/27/23 22:59 06:59 14:59 Output Total 700 Balance -700 Output: Urine 700 Other: Voiding Method Incontinent Incontinent External Catheter External Catheter GENERAL DESCRIPTION: An elderly female lying in bed, no distress. No tachypnea or accessory muscle of respiration use. HEENT: Shows Pallor , no scleral icterus. Oral mucous membrane is dry. Difficult to evaluate oral cavity as the patient wasn't able to open her mouth NECK: Trachea central, no thyromegaly. LUNGS: Unlabored breathing. Clear to auscultation anteriorly. No wheeze or crackle. HEART: S1, S2, regular rate and rhythm. No loud murmur ABDOMEN: Soft, no tenderness , EXTREMITIES: No edema of feet. SKIN: No rash, no masses palpable. NEUROLOGICAL: The patient is awake, alert, oriented x3, mood and affect normal. Results CBC & Chem 7: 11/27/22 04:49 11/27/22 04:49 Labs: Abnormal Lab Results - Last 24 Hours (Table) 11/26/22 11/26/22 11/26/22 Range/Units 05:29 05:29 12:50 RBC (3.80-5.40) m/uL Chloride 112 H (96-109) mmol/L Carbon Dioxide 19.0 L (21.6-31.8) mmol/L BUN 40.6 H (9.0-27.0) mg/dL Creatinine 2.4 H (0.6-1.5) mg/dL Est GFR (CKD-EPI) 21 L (>=60) POC Glucose (mg/dL) 68 L (70-110) mg/dL Hemoglobin A1c 6.7 H (<=6.0) % Calcium 7.1 L (8.7-10.3) mg/dL HDL Cholesterol 29.10 L (40.00-60.00) mg/dL Vitamin B12 <150.0 L (200.0-944.0) pg/mL 11/26/22 11/26/22 11/26/22 Range/Units 13:18 13:47 15:52 RBC 3.70 L (3.80-5.40) m/uL Chloride (96-109) mmol/L Carbon Dioxide (21.6-31.8) mmol/L BUN (9.0-27.0) mg/dL Creatinine (0.6-1.5) mg/dL Est GFR (CKD-EPI) (>=60) POC Glucose (mg/dL) 66 L 180 H (70-110) mg/dL Hemoglobin A1c (<=6.0) % Calcium (8.7-10.3) mg/dL HDL Cholesterol (40.00-60.00) mg/dL Vitamin B12 (200.0-944.0) pg/mL 11/26/22 11/27/22 Range/Units 20:28 02:28 RBC (3.80-5.40) m/uL Chloride (96-109) mmol/L Carbon Dioxide (21.6-31.8) mmol/L BUN (9.0-27.0) mg/dL Creatinine (0.6-1.5) mg/dL Est GFR (CKD-EPI) (>=60) POC Glucose (mg/dL) 58 L 130 H (70-110) mg/dL Hemoglobin A1c (<=6.0) % Calcium (8.7-10.3) mg/dL HDL Cholesterol (40.00-60.00) mg/dL Vitamin B12 (200.0-944.0) pg/mL Microbiology - Last 24 Hours (Table) 11/25/22 07:21 Urine Culture - Preliminary Urine,Catheterized Gram Neg Bacilli Assessment and Plan (1) Dental infection Current Visit: Yes Status: Acute Code(s): K04.7 - PERIAPICAL ABSCESS WITHOUT SINUS SNOMED Code(s): 787383582 (2) UTI (urinary tract infection) Current Visit: Yes Status: Acute Code(s): N39.0 - URINARY TRACT INFECTION, SITE NOT SPECIFIED SNOMED Code(s): 99650986 Plan: 1patient presented to hospital with generalized weakness, the patient did have a fever and main symptom has been pain to the left lower jaw after extraction of the teeth with concern for left lower jaw infection site of the previous teeth which has been extracted and will need to cover for the oral shameka with a likely pathogen, patient also have a positive UA some vague urinary symptoms underlying UTI not entirely excluded 2-patient MRI did shows sinus and mastoid disease however the patient currently do not have any pain or tenderness to the mastoid area and no symptoms referable to the ears clinically doubt mastoiditis 3-discontinue Rocephin and clindamycin 4-start the patient on Unasyn 3 g every 12 hours We will follow on clinical condition and cultures to further adjust medication if needed Thank you for this consultation we will follow the patient along with you Dictation was produced using [employer] dictation software. please excuse any grammatical, word or spelling errors. Time with Patient: Greater than 30
[2022-11-28 07:36] LABS: Glucose,Whole Blood 130 mg/dL (70-110)
[2022-11-28] MEDS: INSULIN ASPART (NovoLOG) 100 UNIT/ML VIAL SQ SCH ×4 (07:47→21:06)
[2022-11-28] MEDS: INSULIN DETEMIR (LEVEMIR) 100 UNIT/ML SYR SQ SCH (07:47)
[2022-11-28 07:57] LABS: African American GFR (CKD) 65 (>60 ml/min/1.73 sqM); Anion Gap 7 mmol/L; Blood Urea Nitrogen 16 mg/dL (7-17); Calcium 7.1 mg/dL (8.4-10.2); Carbon Dioxide 22 mmol/L (22-30); Chloride 111 mmol/L (98-107); Glucose 127 mg/dL (74-99); Magnesium 1.7 mg/dL (1.6-2.3); Non-African American GFR(CKD) 57 (>60 ml/min/1.73 sqM); Potassium 4.6 mmol/L (3.5-5.1); Sodium 140 mmol/L (137-145)
[2022-11-28] MEDS ORDERED: ENOXAPARIN 30 MG/0.3 ML SYRINGE SQ SCH (09:00)
[2022-11-28] MEDS: HYDROmorphone 0.5 MG/0.5 ML SYRINGE IVP PRN ×4 (09:11→22:57)
[2022-11-28] MEDS: atenoloL 50 MG TAB PO SCH (09:12)
[2022-11-28] MEDS: SODIUM BICARBONATE TAB 650 MG TAB PO SCH ×3 (09:12→21:31)
[2022-11-28] MEDS: CYANOCOBALAMIN 500 MCG TAB PO SCH (09:12)
[2022-11-28] MEDS: OXcarbazepine 150 MG TAB PO SCH ×3 (09:12→21:30)
[2022-11-28] MEDS: CIPROFLOXACIN HCL 500 MG TAB PO SCH ×3 (09:12→21:29)
[2022-11-28] MEDS: CHLORHEXIDINE GLUCONATE 15 ML CUP MUCOUS MEM SCH ×2 (09:12→21:04)
[2022-11-28] MEDS: LORATADINE 10 MG TAB PO SCH (09:12)
[2022-11-28] MEDS: NYSTATIN 100,000 UNIT/GM POWD 15 GM TOPICAL SCH ×3 (10:57→21:04)
--- NOTE | 2022-11-28 11:00 | P.PN ---
Subjective Patient is seen in follow for acute kidney injury. Renal function improving. Oral intake better. Has been voiding. Hemodynamically stable. Vital signs are stable. General: No acute distress. HEENT: Head exam is unremarkable. LUNGS: No audible rhonchi or wheezes. HEART: Rate and Rhythm are regular. ABDOMEN: Soft, obese. EXTREMITITES: Trace edema. Objective - Vital Signs Vital signs: Vital Signs Temp 97.3 F L 11/28/22 07:00 Pulse 77 11/28/22 07:00 Resp 18 11/28/22 07:00 BP 118/78 11/28/22 07:00 Pulse Ox 97 11/28/22 07:00 FiO2 Intake & Output 11/27/22 11/28/22 11/28/22 18:59 06:59 18:59 Output Total 500 Balance -500 Weight 99.79 kg Output: Urine 500 Other: Voiding Method Incontinent Incontinent External Catheter External Catheter - Labs CBC & Chem 7: 11/27/22 04:49 11/28/22 07:17 Labs: Abnormal Lab Results - Last 24 Hours (Table) 11/27/22 11/27/22 11/27/22 Range/Units 12:19 17:08 21:21 Chloride (98-107) mmol/L Glucose (74-99) mg/dL POC Glucose (mg/dL) 141 H 135 H 152 H (70-110) mg/dL Calcium (8.4-10.2) mg/dL 11/28/22 11/28/22 Range/Units 07:17 07:35 Chloride 111 H (98-107) mmol/L Glucose 127 H (74-99) mg/dL POC Glucose (mg/dL) 130 H (70-110) mg/dL Calcium 7.1 L (8.4-10.2) mg/dL Microbiology - Last 24 Hours (Table) 11/26/22 15:52 Blood Culture - Preliminary Blood 11/26/22 15:15 Blood Culture - Preliminary Blood 11/25/22 07:21 Urine Culture - Final Urine,Catheterized Klebsiella pneumoniae Assessment and Plan Plan: Assessment: 1. Acute kidney injury secondary to vasomotor nephropathy from hypovolemia and further worsened with the use of losartan. Creatinine 3.14 on admission and is 0.99 today. No hydronephrosis noted on kidney ultrasound. 2. Rule out chronic kidney disease. Creatinine in the range of 1.09-1.7 in February 2022. 3. Klebsiella UTI on antibiotics. 4. Diabetes mellitus. 5. Benign hypertension. Stable. 6. Status post fall and expressive aphasia. Neurology following. MRI showed no acute process. 7. Severe hypomagnesemia from poor intake. Replaced. Better. 8. Metabolic acidosis secondary to acute kidney injury and IV fluids. On oral bicarbonate. Better. Plan: Maintain IV fluids. Encourage oral intake. Add oral magnesium oxide. Follow-up cultures. Preserved ejection fraction noted on echocardiogram. Continue to monitor renal function and urine output.
[2022-11-28 11:38] LABS: Glucose,Whole Blood 186 mg/dL (70-110)
[2022-11-28] MEDS: AMPICILLIN-SULBACTAM 3 GM in SODIUM CHLORIDE 0.9% 100 ML IVPB SCH ×3 (12:18→23:56)
[2022-11-28] MEDS: ASPIRIN 81 MG PO SCH (12:18)
[2022-11-28] MEDS: MAGNESIUM OXIDE 400 MG TAB PO SCH ×3 (12:18→21:29)
[2022-11-28] MEDS: SODIUM CHLORIDE 0.9% 1,000 ML IV SCH (13:25)
--- NOTE | 2022-11-28 13:42 | P.PN ---
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 Currently with expressive aphasia, unable to obtain full details. Shakes head yes to mouth pain and no to chest pain, or shortness of breath. Denies nausea vomiting or diarrhea. UA positive, culture pending with antibiotics of ceftriaxone initiated. Received Toradol in the ER prior to labs reflecting creatinine of 3.14 and GFR 14. Maintained on IV fluid hydration. 11/26/2022 continues on IV fluid hydration, ceftriaxone. Renal function improving, BUN 40.6, creatinine 2.4. Continues to have expressive aphasia. Pain significantly improved, denies tooth/mouth pain this morning. Shakes head no to nausea vomiting or diarrhea. Denies abdominal pain. No bowel movement. Denies chest pain or shortness of breath. T-max 101.4, CBC ordered. Evaluated by neurology and nephrology with recommendations noted and appreciated. Neuro workup in progress. 11/27/22 : Patient seen and evaluated bedside, patient continued to have facial pain pain very consistent with trigeminal neuralgia complains of sharp stabbing pain. Blood work reviewed hematology review WBC within normal limits hemoglobin 11.6 hematocrit 36 platelet 188. Serum chemistry sodium 144 potassium 4.4 BUN 24 creatinine 1.4 magnesium is 0.8 critically low and that is been replaced 11/28/2022: Patient seen and evaluated bedside, patient speech has improved, facial pain has improved as well. Urine culture positive for Klebsiella pneumonia. Continue Unasyn and ciprofloxacin infectious disease following. Serum chemistry is reviewed normal sodium and potassium. Magnesium 1.7 which will be replaced Objective - Vital Signs Vital signs: Vital Signs Temp 97.3 F L 11/28/22 07:00 Pulse 77 11/28/22 07:00 Resp 18 11/28/22 07:00 BP 118/78 11/28/22 07:00 Pulse Ox 97 11/28/22 07:00 FiO2 Intake & Output 11/27/22 11/28/22 11/28/22 18:59 06:59 18:59 Output Total 500 Balance -500 Weight 99.79 kg Output: Urine 500 Other: Voiding Method Incontinent Incontinent External Catheter External Catheter - Exam PHYSICAL EXAMINATION: GENERAL: The patient is alert and oriented x3, appears in distress secondary to facial pain. HEENT: Pupils are round and equally reacting to light. EOMI. CARDIOVASCULAR: S1 and S2 present. No murmurs, rubs, or gallops. PULMONARY: Chest is clear to auscultation, no wheezing or crackles. ABDOMEN: Soft, nontender, nondistended, normoactive bowel sounds. No palpable organomegaly. MUSCULOSKELETAL: No joint swelling or deformity. EXTREMITIES: No cyanosis, clubbing, or pedal edema. NEUROLOGICAL: Expressive aphasia, motor strength is 5 over 5 bilateral upper and lower extremity. SKIN: No rashes. - Labs CBC & Chem 7: 11/27/22 04:49 11/28/22 07:17 Labs: Abnormal Lab Results - Last 24 Hours (Table) 11/27/22 11/27/22 11/28/22 Range/Units 17:08 21:21 07:17 Chloride 111 H (98-107) mmol/L Glucose 127 H (74-99) mg/dL POC Glucose (mg/dL) 135 H 152 H (70-110) mg/dL Calcium 7.1 L (8.4-10.2) mg/dL 11/28/22 11/28/22 Range/Units 07:35 11:36 Chloride (98-107) mmol/L Glucose (74-99) mg/dL POC Glucose (mg/dL) 130 H 186 H (70-110) mg/dL Calcium (8.4-10.2) mg/dL Microbiology - Last 24 Hours (Table) 11/26/22 15:52 Blood Culture - Preliminary Blood 11/26/22 15:15 Blood Culture - Preliminary Blood 11/25/22 07:21 Urine Culture - Final Urine,Catheterized Klebsiella pneumoniae Assessment and Plan Assessment: Assessment and plan * Expressive aphasia likely secondary to trigeminal neuralgia * Acute metabolic encephalopathy secondary to renal failure * Urinary tract infection Klebsiella pneumonia * Mastoid sinusitis * Acute renal failure with chronic kidney disease stage III * History of acute on chronic bilateral frontal cephalalgia * Diabetes mellitus type 2 * Hypertension * Hyperlipidemia * Morbid obesity * Consultation obtained from oral surgery, infectious disease, neurology * In regards to expressive aphasia MRI brain negative for CVA, EEG completedshows abnormal background moderate degree of generalized cerebral dysfunction consistent with toxic metabolic encephalopathy, CTA head and neck negative for significant stenosis. Patient seen by neurology recommended to continue aspirin * In regards to diabetes mellitus HbA1c 6.7 * In regards to dental pain concern for trigeminal neuralgia patient started on Trileptal by neurology * In regards to mastoiditis infectious disease consulted and Rocephin transition to IV Unasyn, on ciprofloxacin * In regards to renal failure patient followed up by nephrology continue to monitor renal profile
--- NOTE | 2022-11-28 14:02 | P.PN ---
Subjective Progress Note Date: 11/28/22 Principal diagnosis: Urinary tract infection and dental infection Patient is a 72-year-old female with a past medical history significant for uterine cancer Diabetes Mellitus, Hyperlipidemia, Hypertension , Patient presenting to the hospital for evaluation of weakness and dental pain apparently the patient recently did have extraction of 2 teeth to the lower jaw, patient also have a fever positive UA concerning for a left lower jaw infection and UTI. On today's evaluation that is 11/28/2022, the patient continues to be afebrile, the patient is breathing comfortably on room air, the patient left lower jaw pain has decreased intensity, the patient denies chest pain or cough, patient denies abdominal pain and no nausea/vomiting /diarrhea Patient did have a creatinine 0.99, blood culture negative urine grew Klebsiella that was resistant to Unasyn Objective - Vital Signs Vital signs: Vital Signs Temp 97.3 F L 11/28/22 07:00 Pulse 77 11/28/22 07:00 Resp 18 11/28/22 07:00 BP 118/78 11/28/22 07:00 Pulse Ox 97 11/28/22 07:00 FiO2 Intake & Output 11/27/22 11/28/22 11/28/22 18:59 06:59 18:59 Output Total 500 Balance -500 Weight 99.79 kg Output: Urine 500 Other: Voiding Method Incontinent Incontinent External Catheter External Catheter - Exam GENERAL DESCRIPTION: An elderly female lying in bed in no distress RESPIRATORY SYSTEM: Unlabored breathing , decreased breath sounds at bases HEART: S1 S2 regular rate and rhythm , ABDOMEN: Soft , no tenderness EXTREMITIES: No edema feet - Labs CBC & Chem 7: 11/27/22 04:49 11/28/22 07:17 Labs: Abnormal Lab Results - Last 24 Hours (Table) 11/27/22 11/27/22 11/27/22 Range/Units 12:19 17:08 21:21 Chloride (98-107) mmol/L Glucose (74-99) mg/dL POC Glucose (mg/dL) 141 H 135 H 152 H (70-110) mg/dL Calcium (8.4-10.2) mg/dL 11/28/22 11/28/22 Range/Units 07:17 07:35 Chloride 111 H (98-107) mmol/L Glucose 127 H (74-99) mg/dL POC Glucose (mg/dL) 130 H (70-110) mg/dL Calcium 7.1 L (8.4-10.2) mg/dL Microbiology - Last 24 Hours (Table) 11/26/22 15:52 Blood Culture - Preliminary Blood 11/26/22 15:15 Blood Culture - Preliminary Blood 11/25/22 07:21 Urine Culture - Final Urine,Catheterized Klebsiella pneumoniae Assessment and Plan (1) Dental infection Current Visit: Yes Status: Acute Code(s): K04.7 - PERIAPICAL ABSCESS WITHOUT SINUS SNOMED Code(s): 916747471 (2) UTI (urinary tract infection) Current Visit: Yes Status: Acute Code(s): N39.0 - URINARY TRACT INFECTION, SITE NOT SPECIFIED SNOMED Code(s): 92080928 Plan: 1patient presented to hospital with generalized weakness, the patient did have a fever and main symptom has been pain to the left lower jaw after extraction of the teeth with concern for left lower jaw infection site of the previous teeth which has been extracted and will need to cover for the oral shameka with a likely pathogen, patient also have a positive UA some vague urinary symptoms underlying UTI not entirely excluded 2-patient MRI did shows sinus and mastoid disease however the patient currently do not have any pain or tenderness to the mastoid area and no symptoms referable to the ears clinically doubt mastoiditis 3-Patient to continue with Unasyn , with improvement of the kidney function does along adjusted to every 6 hours 4-patient also grew Klebsiella in her urine that is resistant to Unasyn oral Cipro has been added to cover for UTI Dictation was produced using [employer] dictation software. please excuse any gramma tical, word or spelling errors. Time with Patient: Less than 30
[2022-11-28 17:38] LABS: Glucose,Whole Blood 148 mg/dL (70-110)
[2022-11-28 21:03] LABS: Glucose,Whole Blood 132 mg/dL (70-110)
[2022-11-28] MEDS: HYDROcodone/APAP 5-325MG 1 EACH TAB PO PRN (21:04)
[2022-11-28] MEDS: SENNOSIDES-DOCUSATE SODIUM 1 EACH TAB PO SCH ×2 (21:04→21:31)
[2022-11-28] MEDS: ATORVASTATIN 80 MG TAB PO SCH ×2 (21:04→21:29)
--- NOTE | 2022-11-29 02:02 | P.PN ---
Progress Note - Text Progress Note Date: 11/28/22 Patient continues to have significant dental pain. Patient has not responded much to Trileptal 150 mg twice a day. We will increase the dose to 300 mg twice a day. Recommend patient follow up with either her dentist, or a maxillofacial surgeon. Dr. Diogo Sequeira will resume neurology service in the morning.
[2022-11-29] MEDS: ACETAMINOPHEN TAB 325 MG TAB PO PRN (02:30)
[2022-11-29] MEDS: SODIUM CHLORIDE 0.9% 1,000 ML IV SCH ×2 (04:31→13:18)
[2022-11-29] MEDS: AMPICILLIN-SULBACTAM 3 GM in SODIUM CHLORIDE 0.9% 100 ML IVPB SCH ×3 (05:41→20:29)
[2022-11-29] MEDS: HYDROmorphone 0.5 MG/0.5 ML SYRINGE IVP PRN ×2 (05:47→15:22)
[2022-11-29 06:09] LABS: Glucose,Whole Blood 126 mg/dL (70-110)
[2022-11-29] MEDS: INSULIN DETEMIR (LEVEMIR) 100 UNIT/ML SYR SQ SCH (06:17)
[2022-11-29] MEDS: INSULIN ASPART (NovoLOG) 100 UNIT/ML VIAL SQ SCH ×4 (06:17→20:50)
[2022-11-29] MEDS: ENOXAPARIN 40 MG/0.4 ML SYRINGE SQ SCH (09:09)
[2022-11-29] MEDS: CHLORHEXIDINE GLUCONATE 15 ML CUP MUCOUS MEM SCH ×2 (09:10→20:27)
[2022-11-29] MEDS: CYANOCOBALAMIN 500 MCG TAB PO SCH (09:10)
[2022-11-29] MEDS: MAGNESIUM OXIDE 400 MG TAB PO SCH ×2 (09:10→20:27)
[2022-11-29] MEDS: ASPIRIN 81 MG PO SCH (09:10)
[2022-11-29] MEDS: OXcarbazepine 150 MG TAB PO SCH ×2 (09:10→20:28)
[2022-11-29] MEDS: SODIUM BICARBONATE TAB 650 MG TAB PO SCH ×2 (09:10→20:27)
[2022-11-29] MEDS: atenoloL 50 MG TAB PO SCH (09:10)
[2022-11-29] MEDS: CIPROFLOXACIN HCL 500 MG TAB PO SCH ×2 (09:10→20:27)
[2022-11-29] MEDS: LORATADINE 10 MG TAB PO SCH (09:11)
[2022-11-29] MEDS: NYSTATIN 100,000 UNIT/GM POWD 15 GM TOPICAL SCH ×3 (09:11→20:28)
[2022-11-29] MEDS: HYDROcodone/APAP 5-325MG 1 EACH TAB PO PRN ×2 (09:40→20:28)
[2022-11-29 11:10] LABS: Blood Urea Nitrogen 12.5 mg/dL (9.0-27.0); Chloride 111 mmol/L (96-109); Glucose 118 mg/dL (70-110); Potassium 4.3 mmol/L (3.5-5.5); Sodium 144 mmol/L (135-145)
[2022-11-29 11:11] LABS: Carbon Dioxide 23.5 mmol/L (21.6-31.8); Magnesium 1.4 mg/dL (1.5-2.4)
[2022-11-29 12:13] LABS: Glucose,Whole Blood 161 mg/dL (70-110)
--- NOTE | 2022-11-29 12:14 | P.PN ---
Subjective Patient is seen for follow-up for acute kidney injury. Renal function has improved No significant complaints today Tolerating oral intake. Objective - Vital Signs Vital signs: Vital Signs Temp 98.3 F 11/29/22 07:00 Pulse 77 11/29/22 07:00 Resp 17 11/29/22 07:00 BP 140/81 11/29/22 07:00 Pulse Ox 94 L 11/29/22 07:00 FiO2 Intake & Output 11/28/22 11/29/22 11/29/22 18:59 06:59 18:59 Intake Total 200 Output Total 725 Balance -725 200 Intake: Oral 200 Output: Urine 725 Other: Voiding Method Incontinent Incontinent Incontinent External Catheter External Catheter External Catheter - Exam Awake comfortable Alert oriented 3 Examination of the heart S1 and S2 Examination of the lungs bilateral breath sounds are heard Abdomen is soft nontender Examination lower extremities shows trace edema - Labs CBC & Chem 7: 11/27/22 04:49 11/29/22 07:02 Labs: Abnormal Lab Results - Last 24 Hours (Table) 11/28/22 11/28/22 11/29/22 Range/Units 17:36 21:02 06:07 Chloride (96-109) mmol/L Est GFR (CKD-EPI) (>=60) Glucose (70-110) mg/dL POC Glucose (mg/dL) 148 H 132 H 126 H (70-110) mg/dL Calcium (8.7-10.3) mg/dL Magnesium (1.5-2.4) mg/dL 11/29/22 Range/Units 07:02 Chloride 111 H (96-109) mmol/L Est GFR (CKD-EPI) 59 L (>=60) Glucose 118 H (70-110) mg/dL POC Glucose (mg/dL) (70-110) mg/dL Calcium 7.0 L (8.7-10.3) mg/dL Magnesium 1.4 L (1.5-2.4) mg/dL Microbiology - Last 24 Hours (Table) 11/26/22 15:52 Blood Culture - Preliminary Blood 11/26/22 15:15 Blood Culture - Preliminary Blood Assessment and Plan Assessment: 1. Acute kidney injury secondary to vasomotor nephropathy from hypovolemia and further worsened with the use of losartan. Creatinine 3.14 on admission and is 1.0 today. No hydronephrosis noted on kidney ultrasound. 2. Rule out chronic kidney disease. Creatinine in the range of 1.09-1.7 in February 2022. 3. Klebsiella UTI on antibiotics. 4. Diabetes mellitus. 5. Benign hypertension. Stable. 6. Status post fall and expressive aphasia. Neurology following. MRI showed no acute process. 7. Severe hypomagnesemia from poor intake. Replaced. Better. 8. Metabolic acidosis secondary to acute kidney injury and IV fluids. On oral bicarbonate. Better. Plan: May continue with IV fluids Continue with oral sodium bicarb Antibiotics as per ID.
[2022-11-29] MEDS ORDERED: LIDOCAINE 2% GLYDO JELLY 11 ML APPL MUCOUS MEM PRN (13:23)
[2022-11-29 13:39] LABS: HCT 33.6 % (34.0-46.0); Hypochromasia Slight; MCH 32.8 pg (25.0-35.0); MCHC 32.6 g/dL (31.0-37.0); MCV 100.5 fL (80.0-100.0); Mean Platelet Volume 9.9; Platelet Count 189 k/uL (150-450); RBC 3.34 m/uL (3.80-5.40); RDW 13.1 % (11.5-15.5); WBC 5.3 k/uL (3.8-10.6)
[2022-11-29] MEDS ORDERED: Magnesium Replacement Protocol 1 EACH MISC MISCELLANE PRN (13:46)
--- NOTE | 2022-11-29 13:47 | P.PN ---
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 Currently with expressive aphasia, unable to obtain full details. Shakes head yes to mouth pain and no to chest pain, or shortness of breath. Denies nausea vomiting or diarrhea. UA positive, culture pending with antibiotics of ceftriaxone initiated. Received Toradol in the ER prior to labs reflecting creatinine of 3.14 and GFR 14. Maintained on IV fluid hydration. 11/26/2022 continues on IV fluid hydration, ceftriaxone. Renal function improving, BUN 40.6, creatinine 2.4. Continues to have expressive aphasia. Pain significantly improved, denies tooth/mouth pain this morning. Shakes head no to nausea vomiting or diarrhea. Denies abdominal pain. No bowel movement. Denies chest pain or shortness of breath. T-max 101.4, CBC ordered. Evaluated by neurology and nephrology with recommendations noted and appreciated. Neuro workup in progress. 11/29/2022 continues on IV antibiotics as per ID. T-max 101, CBC added on/pending. Maintained on antibiotics as per ID. Complains of ongoing mouth pain worsened with any tongue movement, breathing over the affected site, hot and cold temperature changes. Neurology workup completed . Brain MRI reported no acute intracranial process, chronic sinusitis and bilateral mastoid sinus. CTA head and neck reported no significant carotid bifurcation stenosis no sizable intracranial aneurysm or vascular malformation. Trileptal increased yesterday as per neurology. Denies nausea or vomiting. Denies abdominal pain. Continues on oral bicarbonate .Creatinine at baseline. Objective - Vital Signs Vital signs: Vital Signs Temp 98.3 F 11/29/22 07:00 Pulse 77 11/29/22 07:00 Resp 17 11/29/22 07:00 BP 140/81 11/29/22 07:00 Pulse Ox 94 L 11/29/22 07:00 FiO2 Intake & Output 11/28/22 11/29/22 11/29/22 18:59 06:59 18:59 Intake Total 200 Output Total 725 Balance -725 200 Intake: Oral 200 Output: Urine 725 Other: Voiding Method Incontinent Incontinent Incontinent External Catheter External Catheter External Catheter - Exam PHYSICAL EXAM: VITAL SIGNS: [As above] GENERAL: Sitting up in bed, alert to person, expressive aphasia, demonstrating with hands to mouth-mouth pain. HEENT: Conjunctivae normal. eyes normal. NECK: Supple, No JVD. No thyroid enlargement. No LNs CARDIOVASCULAR: S1, S2 regular..No murmur RESPIRATION: Unlabored, equal air entry .clear to auscultation with bilateral bases diminished. ABDOMEN: Soft, nondistended, nontender . No guarding. no masses palpable. No ascites, No hepatosplenomegaly.Bowel sounds heard. LEGS: Trace edema. no calf tenderness, positive DP pulses. NERVOUS SYSTEM: Limited exam;Appears alert and oriented to person, calm, expressive aphasia present. Follows simple commands Skin: Warm and dry, no rash. - Labs CBC & Chem 7: 11/27/22 04:49 11/29/22 07:02 Labs: Abnormal Lab Results - Last 24 Hours (Table) 11/28/22 11/28/22 11/29/22 Range/Units 17:36 21:02 06:07 Chloride (96-109) mmol/L Est GFR (CKD-EPI) (>=60) Glucose (70-110) mg/dL POC Glucose (mg/dL) 148 H 132 H 126 H (70-110) mg/dL Calcium (8.7-10.3) mg/dL Magnesium (1.5-2.4) mg/dL 11/29/22 11/29/22 Range/Units 07:02 12:11 Chloride 111 H (96-109) mmol/L Est GFR (CKD-EPI) 59 L (>=60) Glucose 118 H (70-110) mg/dL POC Glucose (mg/dL) 161 H (70-110) mg/dL Calcium 7.0 L (8.7-10.3) mg/dL Magnesium 1.4 L (1.5-2.4) mg/dL Microbiology - Last 24 Hours (Table) 11/26/22 15:52 Blood Culture - Preliminary Blood 11/26/22 15:15 Blood Culture - Preliminary Blood Assessment and Plan Assessment: Acute UTI, Klebsiella Acute Metabolic encephalopathy secondary to the above Acute renal failure possibly induced by decreased oral intake, medications-prior to inpatient, was on Cozaar, antibiotics, improving. Renal ultrasound reporting no hydronephrosis. CKD III, baseline creatinine 1.1 to 1.7. Metabolic acidosis, on oral bicarbonate. Hypomagnesemia Expressive aphasia, in a patient with history of transient expressive aphasia, previously induced by Topamax which was discontinued. History of acute on chronic bilateral frontal cephalgia due to benign hyperos tosis frontalis, per inpatient neurology evaluation in February 2022. MRI brain with and without ,at that time suggestive of benign hyperostosis frontalis and no mass or stroke. Low suspicion for malignancy reported as per oncology evaluation during that inpatient visit, with multiple further studies ordered to rule out potential malignant cause, including bone survey which reported no focal bone destruction no acute bone abnormality, osteoporosis and osteomalacia type compression fractures in the thoracic and lumbar spine. Persistent Dental pain, Reports recent extraction of 2 teeth left molars with oral surgeon, Dr. Porras. Possible trigeminal neuralgia. Diabetes mellitus type 2, hemoglobin A1c 6.7. Hypertension Hyperlipidemia Morbid obesity, BMI 42 Plan: Continue on current medication regime ,monitoring and symptomatic treatment. Supplement magnesium. Continue IV fluid hydration, bicarbonate. Antibiotics as per ID. Blood cultures repeated. lidocaine viscous daily Prn. The impression and plan of care has been dictated as directed. : I performed a history and examination of this patient, discussed the same with the dictator. I agree with the dictator's note ,documented as a scribe. Any additional findings or plans will be noted.
[2022-11-29] MEDS: MAGNESIUM SULFATE-D5W PMX 1 GM in DEXTROSE/WATER 1 100ML.BAG IVPB SCH ×2 (15:22→16:38)
--- NOTE | 2022-11-29 17:12 | P.PN ---
Subjective Progress Note Date: 11/29/22 Principal diagnosis: Urinary tract infection and dental infection Patient is a 72-year-old female with a past medical history significant for uterine cancer Diabetes Mellitus, Hyperlipidemia, Hypertension , Patient presenting to the hospital for evaluation of weakness and dental pain apparently the patient recently did have extraction of 2 teeth to the lower jaw, patient also have a fever positive UA concerning for a left lower jaw infection and UTI. On today's evaluation that is 11/29/2022, the patient denies any fever or any chills, the patient is breathing comfortably on room air and no need for supplemental oxygen, patient denies abdominal pain and no nausea/vomiting /diarrhea,the patient denies chest pain or cough, pain to the lower jaw has decreased in intensity Patient did have a creatinine 1.0, WBCs 5.3, blood culture negative urine grew Klebsiella that was resistant to Unasyn Objective - Vital Signs Vital signs: Vital Signs Temp 98.3 F 11/29/22 07:00 Pulse 77 11/29/22 07:00 Resp 17 11/29/22 07:00 BP 140/81 11/29/22 07:00 Pulse Ox 94 L 11/29/22 07:00 FiO2 Intake & Output 11/28/22 11/29/22 11/29/22 18:59 06:59 18:59 Intake Total 200 Output Total 725 Balance -725 200 Intake: Oral 200 Output: Urine 725 Other: Voiding Method Incontinent Incontinent Incontinent External Catheter External Catheter External Catheter - Exam GENERAL DESCRIPTION: An elderly female lying in bed in no distress RESPIRATORY SYSTEM: Unlabored breathing , decreased breath sounds at bases HEART: S1 S2 regular rate and rhythm , ABDOMEN: Soft , no tenderness EXTREMITIES: No edema feet - Labs CBC & Chem 7: 11/29/22 07:02 11/29/22 07:02 Labs: Abnormal Lab Results - Last 24 Hours (Table) 11/28/22 11/28/22 11/28/22 Range/Units 11:36 17:36 21:02 Chloride (96-109) mmol/L Est GFR (CKD-EPI) (>=60) Glucose (70-110) mg/dL POC Glucose (mg/dL) 186 H 148 H 132 H (70-110) mg/dL Calcium (8.7-10.3) mg/dL Magnesium (1.5-2.4) mg/dL 11/29/22 11/29/22 Range/Units 06:07 07:02 Chloride 111 H (96-109) mmol/L Est GFR (CKD-EPI) 59 L (>=60) Glucose 118 H (70-110) mg/dL POC Glucose (mg/dL) 126 H (70-110) mg/dL Calcium 7.0 L (8.7-10.3) mg/dL Magnesium 1.4 L (1.5-2.4) mg/dL Microbiology - Last 24 Hours (Table) 11/26/22 15:52 Blood Culture - Preliminary Blood 11/26/22 15:15 Blood Culture - Preliminary Blood Assessment and Plan (1) Dental infection Current Visit: Yes Status: Acute Code(s): K04.7 - PERIAPICAL ABSCESS WITHOUT SINUS SNOMED Code(s): 444782168 (2) UTI (urinary tract infection) Current Visit: Yes Status: Acute Code(s): N39.0 - URINARY TRACT INFECTION, SITE NOT SPECIFIED SNOMED Code(s): 40559200 Plan: 1patient presented to hospital with generalized weakness, the patient did have a fever and main symptom has been pain to the left lower jaw after extraction of the teeth with concern for left lower jaw infection site of the previous teeth which has been extracted and will need to cover for the oral shameka with a likely pathogen, patient also have a positive UA some vague urinary symptoms underlying UTI not entirely excluded 2-patient MRI did shows sinus and mastoid disease however the patient currently do not have any pain or tenderness to the mastoid area and no symptoms referable to the ears clinically doubt mastoiditis, patient did have a Klebsiella urinary tract infection 3-Patient to continue with Unasyn and oral Cipro, with a plan to finish therapy with oral Augmentin and Cipro 7 days Dictation was produced using [employer] dictation software. please excuse any grammatical, word or spelling errors. Time with Patient: Less than 30
[2022-11-29 17:43] LABS: Glucose,Whole Blood 167 mg/dL (70-110)
[2022-11-29] MEDS: SENNOSIDES-DOCUSATE SODIUM 1 EACH TAB PO SCH (20:28)
[2022-11-29] MEDS: ATORVASTATIN 80 MG TAB PO SCH (20:28)
[2022-11-29 20:33] LABS: Glucose,Whole Blood 175 mg/dL (70-110)
[2022-11-30] MEDS: HYDROmorphone 0.5 MG/0.5 ML SYRINGE IVP PRN (06:00)
[2022-11-30] MEDS: AMPICILLIN-SULBACTAM 3 GM in SODIUM CHLORIDE 0.9% 100 ML IVPB SCH (06:00)
[2022-11-30] MEDS: SODIUM CHLORIDE 0.9% 1,000 ML IV SCH (06:00)
[2022-11-30 06:07] LABS: Glucose,Whole Blood 143 mg/dL (70-110)
[2022-11-30] MEDS: INSULIN ASPART (NovoLOG) 100 UNIT/ML VIAL SQ SCH ×2 (06:11→12:44)
[2022-11-30] MEDS: INSULIN DETEMIR (LEVEMIR) 100 UNIT/ML SYR SQ SCH (06:11)
[2022-11-30] MEDS: CHLORHEXIDINE GLUCONATE 15 ML CUP MUCOUS MEM SCH (08:38)
[2022-11-30] MEDS: OXcarbazepine 150 MG TAB PO SCH (08:38)
[2022-11-30] MEDS: SODIUM BICARBONATE TAB 650 MG TAB PO SCH (08:39)
[2022-11-30] MEDS: CIPROFLOXACIN HCL 500 MG TAB PO SCH (08:39)
[2022-11-30] MEDS: NYSTATIN 100,000 UNIT/GM POWD 15 GM TOPICAL SCH (08:40)
[2022-11-30 08:42] VITALS: RESP 17
[2022-11-30] MEDS: ENOXAPARIN 40 MG/0.4 ML SYRINGE SQ SCH (08:50)
[2022-11-30] MEDS: atenoloL 50 MG TAB PO SCH (08:50)
[2022-11-30] MEDS: ASPIRIN 81 MG PO SCH (08:50)
[2022-11-30] MEDS: LORATADINE 10 MG TAB PO SCH (08:50)
[2022-11-30] MEDS: MAGNESIUM OXIDE 400 MG TAB PO SCH (08:50)
[2022-11-30] MEDS ORDERED: MAGNESIUM SULFATE-D5W PMX 1 GM in DEXTROSE/WATER 1 100ML.BAG IVPB SCH (11:15)
[2022-11-30] MEDS ORDERED: MAGNESIUM SULFATE-D5W PMX 1 GM in DEXTROSE/WATER 1 100ML.BAG IVPB ONE (11:17)
[2022-11-30] MEDS ORDERED: MAGNESIUM OXIDE 400 MG TAB PO STA (12:04)
[2022-11-30 12:35] LABS: Glucose,Whole Blood 160 mg/dL (70-110)
--- NOTE | 2022-11-30 13:03 | P.PN ---
Subjective Patient is seen for follow-up for acute kidney injury. Renal function has improved No significant complaints today Tolerating oral intake. Objective - Vital Signs Vital signs: Vital Signs Temp 97.9 F 11/30/22 07:00 Pulse 76 11/30/22 07:00 Resp 17 11/30/22 07:00 BP 120/61 11/30/22 07:00 Pulse Ox 96 11/30/22 07:00 FiO2 Intake & Output 11/29/22 11/30/22 11/30/22 18:59 06:59 18:59 Intake Total 1146 Output Total 400 350 Balance 746 -350 Intake: Oral 1146 Output: Urine 400 350 Other: Voiding Method Incontinent Incontinent External Catheter External Catheter External Catheter - Exam Awake comfortable Alert oriented 3 Examination of the heart S1 and S2 Examination of the lungs bilateral breath sounds are heard Abdomen is soft nontender Examination lower extremities shows trace edema - Labs CBC & Chem 7: 11/29/22 07:02 11/29/22 07:02 Labs: Abnormal Lab Results - Last 24 Hours (Table) 11/29/22 11/29/22 11/29/22 Range/Units 07:02 17:42 20:31 RBC 3.34 L (3.80-5.40) m/uL Hgb 11.0 L (11.4-16.0) gm/dL Hct 33.6 L (34.0-46.0) % MCV 100.5 H (80.0-100.0) fL POC Glucose (mg/dL) 167 H 175 H (70-110) mg/dL 11/30/22 11/30/22 Range/Units 06:05 12:34 RBC (3.80-5.40) m/uL Hgb (11.4-16.0) gm/dL Hct (34.0-46.0) % MCV (80.0-100.0) fL POC Glucose (mg/dL) 143 H 160 H (70-110) mg/dL Microbiology - Last 24 Hours (Table) 11/26/22 15:52 Blood Culture - Preliminary Blood 11/26/22 15:15 Blood Culture - Preliminary Blood Assessment and Plan Assessment: 1. Acute kidney injury secondary to vasomotor nephropathy from hypovolemia and further worsened with the use of losartan. Creatinine 3.14 on admission and is 1.0 from yesterday. No hydronephrosis noted on kidney ultrasound. 2. Rule out chronic kidney disease. Creatinine in the range of 1.09-1.7 in February 2022. 3. Klebsiella UTI on antibiotics. 4. Diabetes mellitus. 5. Benign hypertension. Stable. 6. Status post fall and expressive aphasia. Neurology following. MRI showed no acute process. 7. Severe hypomagnesemia from poor intake. Replaced. Better. 8. Metabolic acidosis secondary to acute kidney injury and IV fluids. On oral bicarbonate. Better. Plan: May continue with IV fluids. Can likely discontinue the IV fluids tomorrow if oral intake is good Continue with oral sodium bicarb Antibiotics as per ID.
--- NOTE | 2022-11-30 15:21 | P.PN ---
Subjective Progress Note Date: 11/30/22 Principal diagnosis: Urinary tract infection and dental infection Patient is a 72-year-old female with a past medical history significant for uterine cancer Diabetes Mellitus, Hyperlipidemia, Hypertension , Patient presenting to the hospital for evaluation of weakness and dental pain apparently the patient recently did have extraction of 2 teeth to the lower jaw, patient also have a fever positive UA concerning for a left lower jaw infection and UTI. On today's evaluation that is 11/30/2022, the patient remains to be afebrile the patient is breathing comfortably on room air, the patient denies having any chest pain shortness of breath or cough, patient denies abdominal pain and no nausea/vomiting /diarrhea, Pt pain to the lower jaw has decreased in intensity, feeling better Patient did have a creatinine 1.0, WBCs 5.3 as of yesterday, blood culture negative urine grew Klebsiella that was resistant to Unasyn Objective - Vital Signs Vital signs: Vital Signs Temp 97.9 F 11/30/22 07:00 Pulse 76 11/30/22 07:00 Resp 17 11/30/22 07:00 BP 120/61 11/30/22 07:00 Pulse Ox 96 11/30/22 07:00 FiO2 Intake & Output 11/29/22 11/30/22 11/30/22 18:59 06:59 18:59 Intake Total 1146 Output Total 400 350 Balance 746 -350 Intake: Oral 1146 Output: Urine 400 350 Other: Voiding Method Incontinent Incontinent External Catheter External Catheter - Exam GENERAL DESCRIPTION: An elderly female lying in bed in no distress RESPIRATORY SYSTEM: Unlabored breathing , decreased breath sounds at bases HEART: S1 S2 regular rate and rhythm , ABDOMEN: Soft , no tenderness EXTREMITIES: No edema feet - Labs CBC & Chem 7: 11/29/22 07:02 11/29/22 07:02 Labs: Abnormal Lab Results - Last 24 Hours (Table) 11/29/22 11/29/22 11/29/22 Range/Units 07:02 07:02 12:11 RBC 3.34 L (3.80-5.40) m/uL Hgb 11.0 L (11.4-16.0) gm/dL Hct 33.6 L (34.0-46.0) % MCV 100.5 H (80.0-100.0) fL Chloride 111 H (96-109) mmol/L Est GFR (CKD-EPI) 59 L (>=60) Glucose 118 H (70-110) mg/dL POC Glucose (mg/dL) 161 H (70-110) mg/dL Calcium 7.0 L (8.7-10.3) mg/dL Magnesium 1.4 L (1.5-2.4) mg/dL 11/29/22 11/29/22 11/30/22 Range/Units 17:42 20:31 06:05 RBC (3.80-5.40) m/uL Hgb (11.4-16.0) gm/dL Hct (34.0-46.0) % MCV (80.0-100.0) fL Chloride (96-109) mmol/L Est GFR (CKD-EPI) (>=60) Glucose (70-110) mg/dL POC Glucose (mg/dL) 167 H 175 H 143 H (70-110) mg/dL Calcium (8.7-10.3) mg/dL Magnesium (1.5-2.4) mg/dL Microbiology - Last 24 Hours (Table) 11/26/22 15:52 Blood Culture - Preliminary Blood 11/26/22 15:15 Blood Culture - Preliminary Blood Assessment and Plan (1) Dental infection Current Visit: Yes Status: Acute Code(s): K04.7 - PERIAPICAL ABSCESS WITHOUT SINUS SNOMED Code(s): 562558963 (2) UTI (urinary tract infection) Current Visit: Yes Status: Acute Code(s): N39.0 - URINARY TRACT INFECTION, SITE NOT SPECIFIED SNOMED Code(s): 13199117 Plan: 1patient presented to hospital with generalized weakness, the patient did have a fever and main symptom has been pain to the left lower jaw after extraction of the teeth with concern for left lower jaw infection site of the previous teeth which has been extracted and will need to cover for the oral shameka with a likely pathogen, patient also have a positive UA some vague urinary symptoms underlying UTI not entirely excluded 2-patient MRI did shows sinus and mastoid disease however the patient currently do not have any pain or tenderness to the mastoid area and no symptoms referable to the ears clinically doubt mastoiditis, patient did have a Klebsiella urinary tract infection 3-Patient seemed to be slowly clinically improving and will continue with Unasyn and oral Cipro, with a plan to finish therapy with oral Augmentin and Cipro 7 days on discharge Dictation was produced using [employer] dictation software. please excuse any grammatical, word or spelling errors. Time with Patient: Less than 30
[2022-11-30 15:58] VITALS: BP 127/81; PULSE 77; TEMP 98.3
--- NOTE | 2022-11-30 16:42 | P.DS ---
Providers Date of admission: 11/29/22 13:13 Expected date of discharge: 11/30/22 Attending physician: Gordon Paniagua MD Consults: 11/25/22 09:57 Consult Physician Urgent Consulting Provider: Sarika Al Consult Reason/Comments: expressive aphasia,?CVA Do you want consulting provider notified?: Yes 11/25/22 15:30 Consult Physician Routine Consulting Provider: Karen Daniel Consult Reason/Comments: acute renal failure, GFR 14 Do you want consulting provider notified?: Yes 11/27/22 02:34 Consult Physician Routine Consulting Provider: Marquita Turner Consult Reason/Comments: Acute mastoiditis, urinary tract infection Do you want consulting provider notified?: Yes Primary care physician: Kylie Franco Hospital Course: Final Diagnoses: Acute UTI, Klebsiella Acute Metabolic encephalopathy secondary to the above Acute renal failure possibly induced by decreased oral intake, medications-prior to inpatient, was on Cozaar, antibiotics, improving. Renal ultrasound reporting no hydronephrosis. CKD III, baseline creatinine 1.1 to 1.7. Metabolic acidosis, on oral bicarbonate. Hypomagnesemia Expressive aphasia, in a patient with history of transient expressive aphasia, previously induced by Topamax which was discontinued. 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 MRI brain with and without ,at that time suggestive of benign hyperostosis frontalis and no mass or stroke. Low suspicion for malignancy reported as per oncology evaluation during that inpatient visit, with multiple further studies ordered to rule out potential malignant cause, including bone survey which reported no focal bone destruction no acute bone abnormality, osteoporosis and osteomalacia type compression fractures in the thoracic and lumbar spine. Persistent Dental pain, Reports recent extraction of 2 teeth left molars with oral surgeon, Dr. Porras. Possible trigeminal neuralgia. Per her oral surgeon, diagnosed with dry socket on the lower left. Diabetes mellitus type 2, hemoglobin A1c 6.7. 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 Currently with expressive aphasia, unable to obtain full details. Shakes head yes to mouth pain and no to chest pain, or shortness of breath. Denies nausea vomiting or diarrhea. UA positive, culture pending with antibiotics of ceftriaxone initiated. Received Toradol in the ER prior to labs reflecting creatinine of 3.14 and GFR 14. Maintained on IV fluid hydration. 11/26/2022 continues on IV fluid hydration, ceftriaxone. Renal function improving, BUN 40.6, creatinine 2.4. Continues to have expressive aphasia. Pain significantly improved, denies tooth/mouth pain this morning. Shakes head no to nausea vomiting or diarrhea. Denies abdominal pain. No bowel movement. Denies chest pain or shortness of breath. T-max 101.4, CBC ordered. Evaluated by neurology and nephrology with recommendations noted and appreciated. Neuro workup in progress. 11/29/2022 continues on IV antibiotics as per ID. T-max 101, CBC added on/pending. Maintained on antibiotics as per ID. Complains of ongoing mouth pain worsened with any tongue movement, breathing over the affected site, hot and cold temperature changes. Neurology workup completed . Brain MRI reported no acute intracranial process, chronic sinusitis and bilateral mastoid sinus. CTA head and neck reported no significant carotid bifurcation stenosis no sizable intracranial aneurysm or vascular malformation. Trileptal increased yesterday as per neurology. Denies nausea or vomiting. Denies abdominal pain. Continues on oral bicarbonate .Creatinine at baseline. Significant clinical improvement. Pain better controlled. Afebrile. Consuming protein supplements. Denies chest pain, palpitations or shortness of breath. Cleared by infectious disease for discharge on Cipro and Augmentin. Patient will be discharged home today in a stable condition with guarded prognosis pending PT evaluation. Patient has been advised to follow up with her oral surgeon this week. The impression and plan of care has been dictated as directed. : I performed a history and examination of this patient, discussed the same with the dictator. I agree with the dictator's note ,documented as a scribe. Any additional findings or plans will be noted. Patient Condition at Discharge: Stable Plan - Discharge Summary New Discharge Prescriptions: New Amoxic-Pot Clav 875-125Mg [Augmentin 875-125] 1 tab PO BID 7 Days #14 tab Ciprofloxacin HCl [Cipro] 500 mg PO BID 7 Days #14 tab Nystatin 100,000 Unit/gm Powd [Mycostatin Powder] 1 applic TOPICAL TID each Sodium Bicarbonate Tab 650 mg PO BID #14 tab OXcarbazepine [Trileptal] 300 mg PO BID #12 tab Acetaminophen Tab [Tylenol] 650 mg PO Q6HR PRN tab PRN Reason: Mild Pain Or Fever > 100.5 Magnesium Oxide [Mag-Ox] 400 mg PO BID tab HYDROcodone/APAP 5-325MG [[place] 5-325] 1 each PO Q6H PRN #12 tab PRN Reason: Pain Sennosides-Docusate Sodium [Senokot-S] 2 each PO HS tab Continue Glimepiride [Amaryl] 4 mg PO BID metFORMIN HCL 1,000 mg PO BID Ergocalciferol [Vitamin D2 (1250 Mcg = 63429 Iu)] 1,250 mcg PO Q30D Chlorhexidine Gluconate [Peridex] 15 ml PO PC-BID Discontinued Amoxicillin 875 mg PO BID Losartan [Cozaar] 25 mg PO DAILY No Action Aspirin EC [Ecotrin Low Dose] 81 mg PO DAILY atenoloL 100 mg PO DAILY hydrALAZINE HCL [Apresoline] 25 mg PO QID PRN #360 tab PRN Reason: Hypertension Cetirizine HCl [Zyrtec] 10 mg PO DAILY Atorvastatin [Lipitor] 80 mg PO HS Butalb/APAP/Caff 50-325-40Mg [Fioricet 50-325-40] 1 tab PO Q4H PRN #30 tablet PRN Reason: Headache Calcium Carb-Vit D 500Mg-5Mcg [Oscal 500+D 5 Mcg (200 Iu)] 1 tab PO DAILY Ibuprofen [Motrin] 600 mg PO Q6H PRN PRN Reason: Pain Discharge Medication List Aspirin EC [Ecotrin Low Dose] 81 mg PO DAILY 02/22/22 [History] Atorvastatin [Lipitor] 80 mg PO HS 02/22/22 [History] Ergocalciferol [Vitamin D2 (1250 Mcg = 13093 Iu)] 1,250 mcg PO Q30D 02/22/22 [History] Glimepiride [Amaryl] 4 mg PO BID 02/22/22 [History] atenoloL 100 mg PO DAILY 02/22/22 [History] metFORMIN HCL 1,000 mg PO BID 02/22/22 [History] Butalb/APAP/Caff 50-325-40Mg [Fioricet 50-325-40] 1 tab PO Q4H PRN #30 tablet 02/24/22 [Rx] hydrALAZINE HCL [Apresoline] 25 mg PO QID PRN #360 tab 02/24/22 [Rx] Calcium Carb-Vit D 500Mg-5Mcg [Oscal 500+D 5 Mcg (200 Iu)] 1 tab PO DAILY 11/25/22 [History] Cetirizine HCl [Zyrtec] 10 mg PO DAILY 11/25/22 [History] Chlorhexidine Gluconate [Peridex] 15 ml PO PC-BID 11/25/22 [History] Ibuprofen [Motrin] 600 mg PO Q6H PRN 11/25/22 [History] Acetaminophen Tab [Tylenol] 650 mg PO Q6HR PRN tab 11/30/22 [Rx] Amoxic-Pot Clav 875-125Mg [Augmentin 875-125] 1 tab PO BID 7 Days #14 tab 11/30/22 [Rx] Ciprofloxacin HCl [Cipro] 500 mg PO BID 7 Days #14 tab 11/30/22 [Rx] HYDROcodone/APAP 5-325MG [[place] 5-325] 1 each PO Q6H PRN #12 tab 11/30/22 [Rx] Magnesium Oxide [Mag-Ox] 400 mg PO BID tab 11/30/22 [Rx] Nystatin 100,000 Unit/gm Powd [Mycostatin Powder] 1 applic TOPICAL TID each 11/30/22 [Rx] OXcarbazepine [Trileptal] 300 mg PO BID #12 tab 11/30/22 [Rx] Sennosides-Docusate Sodium [Senokot-S] 2 each PO HS tab 11/30/22 [Rx] Sodium Bicarbonate Tab 650 mg PO BID #14 tab 11/30/22 [Rx] Follow up Appointment(s)/Referral(s): Zach Porras DDS [STAFF PHYSICIAN] - 12/03/22 9:30 am Gordon Paniagua MD [STAFF PHYSICIAN] - 1 Week [facility], [NON-STAFF] - 1 Week Ambulatory/Diagnostic Orders: Complete Blood Count w/diff [LAB.AMB] Time Frame: 3 Days, Location: None Selected Activity/Diet/Wound Care/Special Instructions: Home with daughter; family reports they're 24 7 care, staff reports daughter declined subacute rehab. clove packing inserted to left lower mouth 11/[address] Porras at patients bedside. please follow up outpatient Discharge Disposition: HOME WITH HOME HEALTH SERVICES
== END 2022-11-30 16:25 | disposition home health service (06) | DRG 682 ==
LOC: EC 01:10 → 6NMEDSUR 04:46 → OBSVTOIN 11-29 13:13
PROVIDERS: ADMIT Family Medicine; ATTEND Family Medicine
DX: N17.0 Acute kidney failure with tubular necrosis (principal); G93.41 Metabolic encephalopathy; E87.20 Acidosis, unspecified; N39.0 Urinary tract infection, site not specified; R47.01 Aphasia; Z68.41 Body mass index [BMI] 40.0-44.9, adult; H70.003 Acute mastoiditis without complications, bilateral; N18.30 Chronic kidney disease, stage 3 unspecified; B96.1 Klebsiella pneumoniae [K. pneumoniae] as the cause of diseases classified elsewhere; B96.89 Other specified bacterial agents as the cause of diseases classified elsewhere; E11.22 Type 2 diabetes mellitus with diabetic chronic kidney disease; E66.01 Morbid (severe) obesity due to excess calories; E78.5 Hyperlipidemia, unspecified; E83.42 Hypomagnesemia; E86.1 Hypovolemia; G50.0 Trigeminal neuralgia; H53.40 Unspecified visual field defects; I12.9 Hypertensive chronic kidney disease with stage 1 through stage 4 chronic kidney disease, or unspecified chronic kidney disease; M27.3 Alveolitis of jaws; W18.30XA Fall on same level, unspecified, initial encounter; Z79.82 Long term (current) use of aspirin; Z79.84 Long term (current) use of oral hypoglycemic drugs; Z79.899 Other long term (current) drug therapy; Z85.42 Personal history of malignant neoplasm of other parts of uterus; Z87.891 Personal history of nicotine dependence; Z90.710 Acquired absence of both cervix and uterus
CPT/HCPCS: 36415; 70450; 70551; 76770; 80048; 80053; 80061; 81001; 82607; 82746; 83036; 83605; 83735; 84145; 84484; 85025; 85027; 85610; 85730; 86140; 87040; 87077; 87086; 87186; 93005; 93306; 94760; 95816; 96361; 96374; 96375; 99285

== ENCOUNTER 2023-09-04 05:39 | Emergency (ER) | payer MEDICARE ==
[2023-09-04 05:46] VITALS: TEMP 97.8
--- NOTE | 2023-09-04 05:56 | ED ---
General Adult HPI - General Source: EMS Mode of arrival: EMS <Dmitriy Del Rio - Last Filed: 09/04/23 07:04> <Zach Kelley - Last Filed: 09/04/23 12:48> - General Chief complaint: Fall Stated complaint: Fall Time Seen by Provider: 09/04/23 05:41 - History of Present Illness Initial comments: Dictation was produced using [employer] dictation software. please excuse any grammatical, word or spelling errors. Chief Complaint: 73-year-old female right shoulder pain after fall History of Present Illness: Patient 73-year-old female she has past medical history of diabetes, dyslipidemia hypertension. Patient states that she is walk around the middle the night when she tripped on her carpet fell hit her face and her right shoulder. Patient complaining of right shoulder pain. EMS was called and patient was brought to the ER. EMS was concerned of possible right shoulder dislocation. Patient states she felt a pop in her right shoulder. The ROS documented in this emergency department record has been reviewed and confirmed by me. Those systems with pertinent positive or negative responses have been documented in the HPI. All other systems are other negative and/or noncontributory. (Dmitriy Del Rio) - Related Data Home Medications Medication Instructions Recorded Confirmed Aspirin EC [Ecotrin Low Dose] 81 mg PO DAILY 02/22/22 11/25/22 Atorvastatin [Lipitor] 80 mg PO HS 02/22/22 11/25/22 Ergocalciferol [Vitamin D2 (1250 1,250 mcg PO Q30D 02/22/22 11/25/22 Mcg = 67090 Iu)] Glimepiride [Amaryl] 4 mg PO BID 02/22/22 11/25/22 atenoloL 100 mg PO DAILY 02/22/22 11/25/22 metFORMIN HCL 1,000 mg PO BID 02/22/22 11/25/22 Calcium Carb-Vit D 500Mg-5Mcg 1 tab PO DAILY 11/25/22 11/25/22 [Oscal 500+D 5 Mcg (200 Iu)] Cetirizine HCl [Zyrtec] 10 mg PO DAILY 11/25/22 11/25/22 Chlorhexidine Gluconate [Peridex] 15 ml PO PC-BID 11/25/22 11/25/22 Ibuprofen [Motrin] 600 mg PO Q6H PRN 11/25/22 11/25/22 Previous Rx's Medication Instructions Recorded Butalb/APAP/Caff 50-325-40Mg 1 tab PO Q4H PRN #30 tablet 02/24/22 [Fioricet 50-325-40] hydrALAZINE HCL [Apresoline] 25 mg PO QID PRN #360 tab 02/24/22 Acetaminophen Tab [Tylenol] 650 mg PO Q6HR PRN tab 11/30/22 Amoxic-Pot Clav 875-125Mg 1 tab PO BID 7 Days #14 tab 11/30/22 [Augmentin 875-125] Ciprofloxacin HCl [Cipro] 500 mg PO BID 7 Days #14 tab 11/30/22 HYDROcodone/APAP 5-325MG [[place] 1 each PO Q6H PRN #12 tab 11/30/22 5-325] Magnesium Oxide [Mag-Ox] 400 mg PO BID tab 11/30/22 Nystatin 100,000 Unit/gm Powd 1 applic TOPICAL TID each 11/30/22 [Mycostatin Powder] OXcarbazepine [Trileptal] 300 mg PO BID #12 tab 11/30/22 Sennosides-Docusate Sodium 2 each PO HS tab 11/30/22 [Senokot-S] Sodium Bicarbonate Tab 650 mg PO BID #14 tab 11/30/22 Allergies Allergy/AdvReac Type Severity Reaction Status Date / Time Kagzyde-DZB-LuD Reductase Allergy Unknown Verified 09/04/23 05:45 Inhibitor morphine AdvReac Unknown Verified 09/04/23 05:45 Review of Systems ROS Other: All systems not noted in ROS Statement are negative. <Dmitriy Del Rio - Last Filed: 09/04/23 07:04> ROS Other: All systems not noted in ROS Statement are negative. <Zach Kelley - Last Filed: 09/04/23 12:48> ROS Statement: Those systems with pertinent positive or pertinent negative responses have been documented in the HPI. Past Medical History Past Medical History: Cancer, Diabetes Mellitus, Hyperlipidemia, Hypertension Additional Past Medical History / Comment(s): Uterine Cancer, Former Smoker (Quit 1983) History of Any Multi-Drug Resistant Organisms: None Reported Past Surgical History: Cholecystectomy, Hysterectomy Past Anesthesia/Blood Transfusion Reactions: Postoperative Nausea & Vomiting (PONV) Past Psychological History: No Psychological Hx Reported Smoking Status: Former smoker Past Alcohol Use History: None Reported Past Drug Use History: None Reported <Dmitriy Del Rio - Last Filed: 09/04/23 07:04> General Exam <Dmitriy Del Rio - Last Filed: 09/04/23 07:04> - General Exam Comments Initial Comments: PHYSICAL EXAM: General Impression: Alert and oriented x3, acute distress secondary to pain HEENT: Normocephalic atraumatic, extra-ocular movements intact, pupils equal and reactive to light bilaterally, mucous membranes moist. Cardiovascular: Heart regular rate and rhythm Chest: Able to complete full sentences, no retractions, no tachypnea Abdomen: abdomen soft, non-tender, non-distended, no organomegaly Musculoskeletal: Pulses present and equal in all extremities, no peripheral edema, bruise of her left knee Motor: no focal deficits noted Neurological: CN II-XII grossly intact, no focal motor or sensory deficits noted Skin: Intact with no visualized rashes Psych: Normal affect and mood Right shoulder: Palpatory tenderness at the proximal humerus. No obvious dislocation however exam limited due to body habitus (Dmitriy Del Rio) Course Vital Signs 09/04/23 09/04/23 09/04/23 05:40 06:17 08:42 Temperature 97.8 F Pulse Rate 89 81 83 Respiratory 18 18 22 Rate Blood Pressure 191/98 192/88 200/84 O2 Sat by Pulse 96 97 96 Oximetry 09/04/23 11:39 Temperature Pulse Rate 75 Respiratory 18 Rate Blood Pressure 149/79 O2 Sat by Pulse 97 Oximetry EKG Findings - EKG Comments: EKG Findings:: My EKG interpretation: Ventricular rate 79, sinus rhythm,. 131, cures 93, QTc 423. No [place] prolongation, no QTC prolongation, no ST or T-wave changes noted. Overall, this EKG is unremarkable <Dmitriy Del Rio - Last Filed: 09/04/23 07:04> Medical Decision Making <Dmitriy Del Rio - Last Filed: 09/04/23 07:04> - Lab Data Result diagrams: 09/04/23 11:57 09/04/23 11:57 <Zach Kelley - Last Filed: 09/04/23 12:48> - Medical Decision Making Was pt. sent in by a medical professional or institution (, PA, [employer], urgent care, hospital, or assisted...) When possible be specific @ -No Did you speak to anyone other than the patient for history (EMS, parent, family, police, friend...)? What history was obtained from this source @ -Some history obtained from EMS as described above Did you review nursing and triage notes (agree or disagree)? Why? @ -I reviewed and agree with nursing and triage notes Were old charts reviewed (outside hosp., previous admission, EMS record, old EKG, old radiological studies, urgent care reports/EKG's, assisted records)? Report findings @ -No old charts were reviewed Differential Diagnosis (chest pain, altered mental status, abdominal pain women, abdominal pain men, vaginal bleeding, musculoskeletal, weakness, fever, dyspnea, syncope, headache, dizziness, GI bleed, back pain, seizure, CVA, palpatations, mental health)? @ -Shoulder fracture, shoulder dislocation humerus fracture EKG interpreted by me (3pts min.). @ -None done X-rays interpreted by me (1pt min.). @ -Pending CT interpreted by me (1pt min.). @ -None done U/S interpreted by me (1pt. min.). @ -None done What testing was considered but not performed or refused? (CT, X-rays, U/S, labs)? Why? @ -None What meds were considered but not given or refused? Why? @ -None Was smoking cessation discussed for >3mins.? @ -No Were there social determinants of health that impacted care today? How? (Homelessness, low income, unemployed, alcoholism, drug addiction, transportation, low edu. Level, literacy, decrease access to med. care, nursing home, rehab)? @ -No Was there de-escalation of care discussed even if they declined (Discuss DNR or withdrawal of care, Hospice)? DNR status @ -No What co-morbidities impacted this encounter? (DM, HTN, Smoking, COPD, CAD, Cancer, CVA, ARF, Chemo, Hep., AIDS, mental health diagnosis, sleep apnea, morbid obesity)? @ -None Was patient admitted / discharged? Hospital course, mention meds given and route, prescriptions, significant lab abnormalities, going to OR and other pertinent info. @ -73-year-old female presents to the emergency department for fall. Patient's main complaint is right shoulder pain. She did report hitting her head. Patient does not take any anticoagulation medication. Pending imaging studies. Patient care signed out to Dr. Kelley at 7:00 AM (Dmitriy Del Rio) Was patient admitted / discharged? Hospital course, mention meds given and route, prescriptions, significant lab abnormalities, going to OR and other pertinent info. @ -[facility] with [facility] they did not not think it was a good idea to keep the patient here and wanted the patient transferred. Family asked if I could speak to the other orthopedic group in town [facility] and [facility] agreed that the patient should be transferred. I spoke with Dr. Odilon reza at [facility] and he agreed to accept the transfer so I transfer the patient to [facility] Undiagnosed new problem with uncertain prognosis? @ -No Drug Therapy requiring intensive monitoring for toxicity (Heparin, Nitro, Insulin, Cardizem)? @ -No Were any procedures done? @ -No Diagnosis/symptom? @ -Proximal humerus fracture Acute, or Chronic, or Acute on Chronic? @ -Default Uncomplicated (without systemic symptoms) or Complicated (systemic symptoms)? @ -Acute complicated Side effects of treatment? @ -No Exacerbation, Progression, or Severe Exacerbation? @ -No Poses a threat to life or bodily function? How? (Chest pain, [place], [place], pneumonia, PE, COPD, DKA, ARF, appy, cholecystitis, CVA, Diverticulitis, Homicidal, Suicidal, threat to staff... and all critical care pts) @ -No (Zach Kelley) - Lab Data Lab Results 09/04/23 09/04/23 09/04/23 Range/Units 11:57 11:57 11:57 WBC 12.9 H (3.8-10.6) k/uL RBC 4.02 (3.80-5.40) m/uL Hgb 12.9 (11.4-16.0) gm/dL Hct 39.2 (34.0-46.0) % MCV 97.3 (80.0-100.0) fL MCH 32.0 (25.0-35.0) pg MCHC 32.9 (31.0-37.0) g/dL RDW 12.6 (11.5-15.5) % Plt Count 242 (150-450) k/uL MPV 8.0 Neutrophils % 91 % Lymphocytes % 6 % Monocytes % 3 % Eosinophils % 1 % Basophils % 0 % Neutrophils # 11.7 H (1.3-7.7) k/uL Lymphocytes # 0.7 L (1.0-4.8) k/uL Monocytes # 0.3 (0-1.0) k/uL Eosinophils # 0.1 (0-0.7) k/uL Basophils # 0.0 (0-0.2) k/uL PT 11.2 (10.0-12.5) sec INR 1.0 (<1.2) APTT 22.4 (22.0-30.0) sec Sodium 130 L (137-145) mmol/L Potassium 4.8 (3.5-5.1) mmol/L Chloride 98 (98-107) mmol/L Carbon Dioxide 25 (22-30) mmol/L Anion Gap 7 mmol/L BUN 20 H (7-17) mg/dL Creatinine 0.85 (0.52-1.04) mg/dL Est GFR (CKD-EPI)AfAm 78 (>60 ml/min/1.73 sqM) Est GFR (CKD-EPI)NonAf 68 (>60 ml/min/1.73 sqM) Glucose 172 H (74-99) mg/dL Calcium 8.1 L (8.4-10.2) mg/dL Total Bilirubin 0.6 (0.2-1.3) mg/dL AST 41 H (14-36) U/L ALT 28 (4-34) U/L Alkaline Phosphatase 109 (38-126) U/L Total Protein 6.3 (6.3-8.2) g/dL Albumin 3.8 (3.5-5.0) g/dL Disposition <Dmitriy Del Rio - Last Filed: 09/04/23 07:04> Time of Disposition: 11:44 - Out of Hospital Transfer - Req. Specs Out of Hospital Transfer - Requested Specifics: Other Emergency Center ([facility]) <Zach Kelley - Last Filed: 09/04/23 12:48> Clinical Impression: Fall, Humerus fracture Disposition: OTHER INSTITUTION NOT DEFINED Referrals: Kylie Franco, PAC [Family Provider] - 1-2 days
[2023-09-04] MEDS: HYDROmorphone 1 MG/ML 1 ML SYRINGE IVP STA (06:20)
--- NOTE | 2023-09-04 07:39 | CT ---
EXAMINATION TYPE: CT brain omayra garces con DATE OF EXAM: 09/04/2023 COMPARISON: 11/25/2022 HISTORY: fall CT DLP: 1488.[address] of the brain was performed. The ventricles, basal cisterns and sulci overlying the cerebral convexities demonstrate enlargement. There is no evidence for intracranial hemorrhage or sulcal effacement. There is decreased attenuatio n about the periventricular white matter and deep white matter of both cerebral hemispheres, compatib le with chronic small vessel ischemia. No mass effects are seen. If symptoms persist consider MRI. Osseous calvarium is intact. IMPRESSION: 1. Age related atrophic and chronic small vessel ischemic change without acute intracranial process seen at this time. CT Cervical Spine: Unenhanced CT of the cervical spine was performed with bone and soft tissue window settings submitted . Coronal and sagittal reconstruction is obtained. There is normal alignment and prevertebral soft tissues. No evidence for acute cervical fracture . Scattered degenerative disc disease and spondylosis. Biapical scarring. IMPRESSION: 1. No evidence for acute fracture or subluxation of the cervical spine.
--- NOTE | 2023-09-04 07:43 | XR ---
EXAMINATION TYPE: XR shoulder limited RT DATE OF EXAM: 09/04/2023 CLINICAL HISTORY: pain TECHNIQUE: Three views of the right shoulder are obtained. COMPARISON: None FINDINGS: There is surgical neck fracture with complete displacement of the distal fracture component medially. No additional fractures seen within the [id number]. IMPRESSION: 1. Fracture as above.
[2023-09-04] MEDS: droPERidol 5 MG/2 ML VIAL IVP ONE (08:15)
[2023-09-04] MEDS: LORazepam 2 MG/ML INJ IV STA (08:16)
[2023-09-04] MEDS: ONDANSETRON 4 MG/2 ML VIAL IVP STA ×2 (08:44→13:18)
[2023-09-04] MEDS: HYDROmorphone 0.5 MG/0.5 ML SYRINGE IVP STA ×2 (08:44→13:20)
--- NOTE | 2023-09-04 09:53 | CT ---
EXAMINATION TYPE: CT shoulder RT wo con DATE OF EXAM: 09/04/2023 COMPARISON: Plain films from today HISTORY: Fall CT DLP: [address] of the right shoulder with reconstruction imaging. TECHNIQUE: Unenhanced CT of the right shoulder was performed with bone and soft tissue window setting s submitted in the axial coronal and sagittal planes. At a separate workstation 3-[id number] TR imaging was o btained. FINDINGS: Mildly comminuted markedly displaced proximal humeral fracture. Fracture likely originates at the surgical neck with rotation of the humeral head. Glenohumeral joint space is preserved. AC forrest nt demonstrates mild degenerative change. No additional fracture seen within the field of view. Soft tissue edema and hemarthrosis noted. IMPRESSION: 1. Mildly comminuted markedly displaced proximal humeral fracture.
[2023-09-04] MEDS: ACETAMINOPHEN TAB 500 MG TAB PO STA (12:03)
[2023-09-04 12:04] LABS: Basophils % (A) 0 %; Eosinophils # (A) 0.1 k/uL (0-0.7); Eosinophils % (A) 1 %; HCT 39.2 % (34.0-46.0); HGB 12.9 gm/dL (11.4-16.0); Lymphocytes # (A) 0.7 k/uL (1.0-4.8); Lymphocytes % (A) 6 %; MCHC 32.9 g/dL (31.0-37.0); MCV 97.3 fL (80.0-100.0); Monocytes # (A) 0.3 k/uL (0-1.0); Monocytes % (A) 3 %; Neutrophils # (A) 11.7 k/uL (1.3-7.7); Neutrophils % (A) 91 %; Platelet Count 242 k/uL (150-450); RBC 4.02 m/uL (3.80-5.40); RDW 12.6 % (11.5-15.5); WBC 12.9 k/uL (3.8-10.6)
--- NOTE | 2023-09-04 12:09 | XR ---
EXAMINATION TYPE: XR chest 1V portable DATE OF EXAM: 09/04/2023 HISTORY: Shortness of breath. COMPARISON: None. TECHNIQUE: Single view of the chest is submitted. FINDINGS: Demonstrated are scattered senescent parenchymal change. There is no evidence for focal infiltrate. The heart is stable. Hilar and mediastinal structures are within normal limits. Degenerative changes are seen of the dorsal spine. IMPRESSION: 1. Chronic changes without evidence for acute pulmonary disease.
[2023-09-04 12:15] LABS: ALT 28 U/L (4-34); AST 41 U/L (14-36); African American GFR (CKD) 78 (>60 ml/min/1.73 sqM); Albumin 3.8 g/dL (3.5-5.0); Alkaline Phosphatase 109 U/L (38-126); Anion Gap 7 mmol/L; Blood Urea Nitrogen 20 mg/dL (7-17); Calcium 8.1 mg/dL (8.4-10.2); Carbon Dioxide 25 mmol/L (22-30); Chloride 98 mmol/L (98-107); Glucose 172 mg/dL (74-99); Non-African American GFR(CKD) 68 (>60 ml/min/1.73 sqM); Partial Thromboplastin Time 22.4 sec (22.0-30.0); Potassium 4.8 mmol/L (3.5-5.1); Prothrombin Time 11.2 sec (10.0-12.5); Sodium 130 mmol/L (137-145); Total Bilirubin 0.6 mg/dL (0.2-1.3); Total Protein 6.3 g/dL (6.3-8.2)
[2023-09-04 13:27] VITALS: BP 152/88; PULSE 67; RESP 20
== END 2023-09-04 13:30 | disposition other institution (70) ==
LOC: EC 05:39
DX: S42.301A Unspecified fracture of shaft of humerus, right arm, initial encounter for closed fracture (principal); I10 Essential (primary) hypertension; Z87.891 Personal history of nicotine dependence; Z88.5 Allergy status to narcotic agent; Z88.8 Allergy status to other drugs, medicaments and biological substances; W01.0XXA Fall on same level from slipping, tripping and stumbling without subsequent striking against object, initial encounter
CPT/HCPCS: 36415; 93005; 80053; 85025; 85610; 85730; 73020; 71045; 72125; 70450; 73200; 99285; 96374; 96375; 96376 ×3; 51701; J2405; J1170 ×2

== ENCOUNTER → 2024-01-04 | Outpatient (CLI) | payer MEDICARE ==
--- NOTE | 2024-01-04 14:54 | CT ---
EXAMINATION TYPE: CT shoulder RT wo con CT DLP: 528.7 mGycm, Automated exposure control for dose reduction was used. DATE OF EXAM: 01/04/2024 1:54 PM COMPARISON: CT right shoulder 09/04/2023, right shoulder radiographs of 1424 CLINICAL INDICATION:Female, 73 years old with history of S42.209A PROXIMAL HUMERAL FRACTURE; PHH, pos t-op right shoulder sx TECHNIQUE: Axial images were obtained of the right shoulder without the use of IV contrast. Addition al coronal and sagittal reformatted images and soft tissue and bone window were obtained for review. 3-D reconstruction was created on a separate workstation. FINDINGS: Postsurgical changes of the right proximal humerus with fixation plate identified for previ ously seen comminuted displaced proximal humerus fracture. Hardware appears intact with appropriate a lignment. There is lucency of the bone surrounding the most proximal screws at the humeral head at th e fracture site. Fracture lines are still visible. Improved alignment from prior CT. No new fracture identified. No dislocation or joint effusion. Mild AC joint arthropathy. Anterior right shoulder soft tissue fluid collection measuring 3.3 x 1.6 x 1.8 cm along the surgical tract. No internal gas. No f ocal muscular atrophy or edema identified. Visualized portions of the right lung is unremarkable. IMPRESSION: 1. Postsurgical fixation of the right proximal humerus for comminuted displaced proximal humerus fra cture. Hardware appears intact with appropriate alignment. 2. Anterior right shoulder soft tissue fluid collection measuring up to 3.3 cm along the surgical tr act favored to represent a seroma. [facility], , 01/04/2024 2:51 PM
== END | disposition home or self-care (01) ==
LOC: RADCTMAIN 13:31
PROVIDERS: ATTEND Orthopaedic Surgery Orthopaedic Trauma
DX: S42.201D Unspecified fracture of upper end of right humerus, subsequent encounter for fracture with routine healing (principal)